=== PATIENT | female | born 1940 | race American Indian/Alaskan Native ===

== ENCOUNTER 2017-08-18 08:15 | Emergency (ER) | payer MEDICARE ==
[2017-08-18 08:34] VITALS: BP 107/61
[2017-08-18] MEDS: TORADOL IM ONE (09:26)
[2017-08-18] MEDS: NORCO 7.5/325 PO ONE (09:26)
--- NOTE | 2017-08-18 09:32 | Emergency Department Report ---
ED Back Pain/Injury HPI - General Chief Complaint: Back Pain/Injury Stated Complaint: BACK PAIN Time Seen by Provider: 08/18/17 08:51 Source: patient, family Limitations: Physical Limitation - History of Present Illness Initial Comments: This is a 76-year-old female nontoxic, well nourished in appearance, no acute signs of distress presents to the ED with c/o of left-sided lower back pain that radiates to his left lower extremity 1 week. Patient denies any trauma to the region. Patient stated pain has gradually increased. Patient describe pain as aching with level of 8 out of 10. Patient denies any numbness, tingling , fever, chills, nausea, vomiting, headache or stiff neck. Patient denies any abdominal pain. Patient denies any urinary symptoms. Patient denies any bladder or bowel instability, chest pain, shortness of breath, fever, chills, nausea, vomiting, headache, stiff neck, or any neurological symptoms. Patient states allergies to naproxen and tramadol but states she is okay taking Motrin and Aleve [id number]. Patient states past medical history includes arthritis, hypertension, gout, cholecystectomy. Patient denies any kidney failure or damage. MD Complaint: back pain -: week(s) (1) Similar Symptoms Previously: Yes Place: home Radiation: left leg Severity: mild Severity scale (0 -10): 8 Quality: aching Consistency: constant Improves With: immobilization Worsens With: movement, supine, sitting upright Associated Symptoms: denies: confusion, weakness, chest pain, numbness, difficulty walking, cough, difficulty urinating, diaphoresis, incontinence, fever/chills, constipation, headaches, abdominal pain, loss of appetite, malaise , nausea/vomiting, rash, seizure, shortness of breath, syncope - Related Data Home Medications Medication Instructions Recorded Confirmed Last Taken Atenolol/Chlorthalidone 50 mg PO DAILY 02/03/17 02/03/17 Unknown Hydralazine HCl 50 mg PO DAILY 02/03/17 02/03/17 Unknown Omeprazole 40 mg PO DAILY 02/03/17 02/03/17 Unknown Tylenol Arthritis 325 mg PO Q6H 02/03/17 02/03/17 Unknown Previous Rx's Medication Instructions Recorded Last Taken Type Colchicine 0.6 mg PO DAILY #60 capsule 02/05/17 Unknown Rx Pantoprazole [Protonix TAB] 40 mg PO DAILY #30 tablet 02/05/17 Unknown Rx HYDROcodone/ACETAMINOPHEN [[place] 1 each PO Q6H PRN #12 tablet 08/18/17 Unknown Rx 5-325 Tablet] Allergies Allergy/AdvReac Type Severity Reaction Status Date / Time naproxen AdvReac Dizziness Verified 02/03/17 12:46 tramadol AdvReac Unknown Unverified 04/03/15 14:02 ED Review of Systems ROS: Stated complaint: BACK PAIN Other details as noted in HPI Constitutional: denies: chills, fever Eyes: denies: eye pain, eye discharge, vision change ENT: denies: ear pain, throat pain Respiratory: denies: cough, shortness of breath, wheezing Cardiovascular: denies: chest pain, palpitations Endocrine: no symptoms reported Gastrointestinal: denies: abdominal pain, nausea, diarrhea Genitourinary: denies: urgency, dysuria, discharge Musculoskeletal: back pain. 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 Leg swelling - Surgical History Past Surgical History?: Yes Hx Cholecystectomy: Yes Additional Surgical History: hysterectomy - Social History Smoking Status: Former Smoker Substance Use Type: Alcohol, Prescribed - Medications Home Medications: Home Medications Medication Instructions Recorded Confirmed Last Taken Type Atenolol/Chlorthalidone 50 mg PO DAILY 02/03/17 02/03/17 Unknown History Hydralazine HCl 50 mg PO DAILY 02/03/17 02/03/17 Unknown History Omeprazole 40 mg PO DAILY 02/03/17 02/03/17 Unknown History Tylenol Arthritis 325 mg PO Q6H 02/03/17 02/03/17 Unknown History Colchicine 0.6 mg PO DAILY #60 capsule 02/05/17 Unknown Rx Pantoprazole [Protonix TAB] 40 mg PO DAILY #30 tablet 02/05/17 Unknown Rx HYDROcodone/ACETAMINOPHEN [[place] 1 each PO Q6H PRN #12 tablet 08/18/17 Unknown Rx 5-325 Tablet] ED Physical Exam - General Limitations: Physical Limitation General appearance: alert, in no apparent distress - Head Head exam: Present: atraumatic, normocephalic - Eye Eye exam: Present: normal appearance Pupils: Present: normal accommodation - ENT ENT exam: Present: normal exam, mucous membranes moist - Neck Neck exam: Present: normal inspection, full ROM. Absent: tenderness, meningismus, lymphadenopathy, thyromegaly - Respiratory Respiratory exam: Present: normal lung sounds bilaterally. Absent: respiratory distress, wheezes, rales, rhonchi, stridor, chest wall tenderness, accessory muscle use, decreased breath sounds, prolonged expiratory - Cardiovascular Cardiovascular Exam: Present: regular rate, normal rhythm, normal heart sounds. Absent: bradycardia, tachycardia, irregular rhythm, systolic murmur, diastolic murmur, rubs, gallop - GI/Abdominal GI/Abdominal exam: Present: soft, normal bowel sounds. Absent: distended, tenderness, guarding, rebound, rigid, diminished bowel sounds - Rectal Rectal exam: Present: deferred - Extremities Exam Extremities exam: Present: normal inspection, full ROM, normal capillary refill - Back Exam Back exam: Present: normal inspection, full ROM, paraspinal tenderness (lumbar region). Absent: tenderness, CVA tenderness (R), CVA tenderness (L), muscle spasm, vertebral tenderness, rash noted - Expanded Back Exam Expanded Back exam: Absent: saddle anesthesia Back exam: Negative Straight Leg Raising: Left, Right - Neurological Exam Neurological exam: Present: alert, oriented X3, normal gait - Psychiatric Psychiatric exam: Present: normal affect, normal mood - Skin Skin exam: Present: warm, dry, intact, normal color. Absent: rash ED Course Vital Signs 08/18/17 08:29 Temperature 98.3 F Pulse Rate 89 Respiratory 18 Rate Blood Pressure 107/61 O2 Sat by Pulse 95 Oximetry - Reevaluation(s) Reevaluation #1: 08/18/17 09:35 Patient is speaking in full sentences with no signs of distress noted. - Consultations Consultation #1: 08/18/17 09:35 Patient has been consulted with Dr. Stevens about patient history, physical exam, and agrees to ED plan of care. ED Medical Decision Making - Lab Data Result diagrams: 08/18/17 09:25 08/18/17 09:25 - EKG Data When compared to previous EKG there are: no significant change Interpretation: no acute changes, normal EKG, other (normal sinus rhythm with no ST abnormalities. Signed by Dr. Stevens.) - Medical Decision Making this is a 76-year-old female that presents with degenerative lumbar disc disease. Patient is stable and was examined by me. CT of abdomen/pelvis and lumbar spine obtained and dictated by the radiologist. Labs within normal limits. EKG normal sinus rhythm. Patient is notified of the CT results with no questionable patient. Patient did receive Toradol 30 mg IM and Ultram which symptoms are improving and subsided. There is no signs or symptoms of cauda equina syndrome. Dr. Stevens has been consulted and agrees with the discharge plan of care as well as follow-up. Patient is discharged with some [place] and was instructed not to operate any machinery while taking Ultram due to drowsiness. Patient is daughter is currently at the bedside as the patient home after discharge. Patient was instructed to refer to Follow-up with a primary care doctor in 3-5 days or if symptoms worsen and continue return to emergency room as soon as possible. At time of discharge, the patient does not seem toxic or ill in appearance. No acute signs of distress noted. Patient agrees to discharge treatment plan of care. No further questions noted by the patient. Critical care attestation.: If time is entered above; I have spent that time in minutes in the direct care of this critically ill patient, excluding procedure time. ED Disposition Clinical Impression: Lumbar degenerative disc disease Disposition: DC-01 TO HOME OR SELFCARE Is pt being admited?: No Does the pt Need Aspirin: No Condition: Stable Instructions: Degenerative Disc Disease (ED) Additional Instructions: Do not operate after discharge and when you are taken [place] due to drowsiness Follow-up with your primary care doctor in 3-5 days or if symptoms worsen such as bladder or bowel stability, chest pain, short of breath, numbness or tingling sensation in extremities, headache, dizziness, visual changes, nausea vomiting, or abdominal pain, return back to emergency room as was possible. Prescriptions: HYDROcodone/ACETAMINOPHEN [[place] 5-325 Tablet] 1 each PO Q6H PRN #12 tablet PRN Reason: Pain Referrals: PRIMARY CARE, [Primary Care Provider] - 3-5 Days MAC BARRERA MD [Staff Physician] - 3-5 Days [facility] [Outside] - 3-5 Days [facility] [Outside] - 3-5 Days
[2017-08-18 10:03] LABS: INR 1.01 (0.87-1.13)
[2017-08-18 10:04] LABS: Partial Thromboplastin Time 29.1 Sec. (24.2-36.6)
[2017-08-18 10:24] LABS: Hematocrit 46.2 % (30.3-42.9); Hemoglobin 14.8 gm/dl (10.1-14.3); Mean Corpuscular HGB Conc 32 % (30-34); Mean Corpuscular Hemoglobin 28 pg (28-32); Mean Corpuscular Volume 88 fl (79-97); Platelet Count 222 K/mm3 (140-440); Red Blood Count 5.26 M/mm3 (3.65-5.03); Red Cell Distribution Width 14.7 % (13.2-15.2)
--- NOTE | 2017-08-18 10:36 | Cat Scan Report ---
CT ABDOMEN AND PELVIS WITHOUT CONTRAST INDICATION: Back pain. COMPARISON: None similar. FINDINGS: Noncontrast abdomen and pelvis CT performed. LUNG BASES: Left hemidiaphragm minimally elevated. Nonspecific distal esophageal wall prominence/thickening, not excluded for gastroesophageal reflux and/or hiatal hernia, amongst others. ABDOMEN: Please note that sensitivity to detect small visceral lesions is limited due to the absence of intravenous or oral contrast. Cholecystectomy clips. Diffuse fatty hepatic infiltration. Right hepatic lobe 17.1 cm in midclavicular length. Otherwise grossly unremarkable unenhanced liver, spleen, pancreas, adrenals, nonaneurysmal abdominal aorta with few atherosclerotic calcifications, IVC and left kidney. Right kidney not visualized in its usual anatomic location. Nonopacified GI tract evaluation limited, though grossly nonobstructive. A small non-strangulated segment of small bowel though herniates through an approximately 1.2 cm defect at or just below the umbilicus, axial image 103, series 2. Mild descending colon diverticulosis. No ascites or definite size significant adenopathy. PELVIS: Right kidney noted slightly paramidline in the right hemipelvis without hydronephrosis or radiopaque calculi. Uterus surgically absent with few pelvic phleboliths. Grossly unremarkable non-opacified urinary bladder and the rectosigmoid. No free fluid or significant adenopathy. Moderate multilevel spinal degenerative changes as spurring, mid to lower lumbar facet arthropathy, lower lumbar moderate to severe disc narrowing as also approximately 4 mm anterolisthesis of L4 on L5. Mild bilateral SI joint degenerative changes as well. CONCLUSION: Various incidental findings on this limited, unenhanced exam, as a small nonobstructive small bowel segment herniating into an umbilical hernia, distal esophageal prominence, fatty liver, cholecystectomy, pelvic right kidney, hysterectomy and multilevel spinal degenerative changes, amongst others, as detailed above. Thank you for the opportunity to participate in this patient's care.
[2017-08-18 11:03] LABS: Albumin 3.2 g/dL (3.9-5); Bilirubin,Direct 0.2 mg/dL (0-0.2)
--- NOTE | 2017-08-18 11:54 | Cat Scan Report ---
CT LUMBAR SPINE WITHOUT CONTRAST INDICATION: Back pain. COMPARISON: Accompanying abdomen and pelvis CT. FINDINGS: Noncontrast axial, sagittal and coronal CT reconstructions through the lumbar spine suggest demineralized bones with multilevel moderate degenerative changes as lower thoracic osteophytes and L2-L3 through L4-L5 bilateral facet arthropathy. Slight 2 mm anterolisthesis of L3 over L4 and L4 over L5. Moderate L4-L5 and L5-S1 disc narrowing may also be present. No large disc bulge grossly suspected. Normal paraspinal soft tissues. Clear imaged lung bases. Possible hiatal hernia and/or gastroesophageal reflux. Small nonspecific 5 mm gastric calcification. Partially imaged pelvic right kidney, axial image 117. CONCLUSION: No acute lumbar spine CT abnormality with multilevel spinal degenerative changes and various other findings, as above. Thank you for the opportunity to participate in this patient's care.
[2017-08-18 12:26] LABS: Bilirubin,Urine NEG (Negative); Blood,Urine NEG (Negative); Color,Urine Yellow (Yellow); Mucus,Urine FEW /HPF; Protein,Urine <15 mg/dL mg/dL (Negative)
== END 2017-08-18 12:44 | disposition home or self-care (01) ==
LOC: ED 08:15
DX: M51.36 Other intervertebral disc degeneration, lumbar region (principal); I10 Essential (primary) hypertension; M19.90 Unspecified osteoarthritis, unspecified site; N28.89 Other specified disorders of kidney and ureter; Z90.49 Acquired absence of other specified parts of digestive tract; Z90.710 Acquired absence of both cervix and uterus; Z87.891 Personal history of nicotine dependence; Z88.6 Allergy status to analgesic agent
CPT/HCPCS: 36415; 72131; 74176; 80048; 80074; 81001; 85025; 85610; 85730; 93005; 93010; 96372; 99284; J1885

== ENCOUNTER 2018-07-06 14:28 | Inpatient (IN) | payer MEDICARE ==
--- NOTE | 2018-07-06 14:40 | Emergency Department Report ---
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 Leg swelling - Surgical History Hx Cholecystectomy: Yes Additional Surgical History: hysterectomy - Social History Smoking Status: Never Smoker - Medications Home Medications: Home Medications Medication Instructions Recorded Confirmed Last Taken Type Atenolol/Chlorthalidone 50 mg PO DAILY 02/03/17 02/03/17 Unknown History Hydralazine HCl 50 mg PO DAILY 02/03/17 02/03/17 Unknown History Omeprazole 40 mg PO DAILY 02/03/17 02/03/17 Unknown History Tylenol Arthritis 325 mg PO Q6H 02/03/17 02/03/17 Unknown History Colchicine 0.6 mg PO DAILY #60 capsule 02/05/17 Unknown Rx Pantoprazole [Protonix TAB] 40 mg PO DAILY #30 tablet 02/05/17 Unknown Rx HYDROcodone/ACETAMINOPHEN [[place] 1 each PO Q6H PRN #12 tablet 08/18/17 Unknown Rx 5-325 Tablet] Upper Extremity Exam - Exam General: Vital signs noted. No distress. Alert and acting appropriately. ED Course Vital Signs 07/06/18 14:39 Respiratory 18 Rate O2 Sat by Pulse 98 Oximetry ED Medical Decision Making - Lab Data Result diagrams: 07/06/18 14:55 07/06/18 14:55 Critical care attestation.: If time is entered above; I have spent that time in minutes in the direct care of this critically ill patient, excluding procedure time. ED Disposition Condition: Stable
[2018-07-06 15:10] LABS: Hematocrit 41.9 % (30.3-42.9); Hemoglobin 13.9 gm/dl (10.1-14.3); Mean Corpuscular HGB Conc 33 % (30-34); Mean Corpuscular Volume 87 fl (79-97); Platelet Count 276 K/mm3 (140-440); Red Blood Count 4.84 M/mm3 (3.65-5.03); Red Cell Distribution Width 14.1 % (13.2-15.2)
[2018-07-06 15:24] LABS: Albumin 2.8 g/dL (3.9-5); Calcium 9.9 mg/dL (8.4-10.2)
--- NOTE | 2018-07-06 15:46 | Emergency Department Report ---
<MADISON KWAN - Last Filed: 07/07/18 01:38> - General Chief complaint: Weakness Stated complaint: WEAKNESS X3DAYS Time Seen by Provider: 07/06/18 14:28 - Related Data Home Medications Medication Instructions Recorded Confirmed Last Taken RX: Atenolol/Chlorthalidone 1 tab PO QDAY 07/06/18 07/06/18 Unknown [Tenoretic 50-25] RX: Famotidine [Pepcid] 40 mg PO QHS 07/06/18 07/06/18 Unknown RX: Febuxostat [Uloric] 40 mg PO DAILY 07/06/18 07/06/18 Unknown RX: Hydralazine HCl 50 mg PO BID 07/06/18 07/06/18 Unknown Previous Rx's Medication Instructions Recorded Last Taken Type RX: Colchicine 0.6 mg PO DAILY #60 capsule 02/05/17 Unknown Rx RX: Docusate Sodium [Colace CAP] 100 mg PO BID PRN #30 capsule 07/10/18 Unknown Rx RX: predniSONE [Deltasone] 10 mg PO DAILY #5 tablet 07/10/18 Unknown Rx Allergies Allergy/AdvReac Type Severity Reaction Status Date / Time turkey Allergy Intermediate Hives Verified 07/07/18 19:18 tramadol AdvReac Intermediate Dizziness Verified 07/10/18 03:08 naproxen AdvReac Mild Dizziness Verified 07/07/18 19:19 ED Past Medical Hx - Medications Home Medications: Home Medications Medication Instructions Recorded Confirmed Last Taken Type RX: Colchicine 0.6 mg PO DAILY #60 capsule 02/05/17 07/06/18 Unknown Rx RX: Atenolol/Chlorthalidone 1 tab PO QDAY 07/06/18 07/06/18 Unknown History [Tenoretic 50-25] RX: Famotidine [Pepcid] 40 mg PO QHS 07/06/18 07/06/18 Unknown History RX: Febuxostat [Uloric] 40 mg PO DAILY 07/06/18 07/06/18 Unknown History RX: Hydralazine HCl 50 mg PO BID 07/06/18 07/06/18 Unknown History RX: Docusate Sodium [Colace CAP] 100 mg PO BID PRN #30 capsule 07/10/18 Unknown Rx RX: predniSONE [Deltasone] 10 mg PO DAILY #5 tablet 07/10/18 Unknown Rx ED Medical Decision Making - Lab Data Result diagrams: 07/06/18 14:55 07/06/18 14:55 - Radiology Data Referring Physician: MELANIE QUARLES III Patient Name: MARIA TERESA IRWIN Date of : 1940 Sex: Female Report Date: 2018-07-06 Report Status: Finalized Findings [facility] [address] [place] [address] Cat Scan Report Signed Patient: MARIA TERESA IRWIN MR#: [id number] : 1940 Acct:[id number] Age/Sex: 77 / F ADM Date: 07/06/18 Loc: ED Attending Dr: Ordering Physician: MELANIE QUARLES III, MD Date of Service: 07/06/18 Procedure(s): CT head/brain wo con Accession Number(s): [id number] cc: MELANIE QUARLES III, MD FINAL REPORT EXAM: CT HEAD/BRAIN WO CON HISTORY: Weakness TECHNIQUE: 2.5 millimeter axial images from the skullbase to the vertex. Comparison: None FINDINGS: There is no evidence of an acute intracranial process, intracranial hemorrhage or mass effect. Ventricular size is concordant with the degree of atrophy. There is atherosclerotic vascular calcification of the internal carotid arteries and left vertebral artery at the skullbase. The visualized portions of the orbits, paranasal and mastoid sinuses are notable for a large polyp or retention cyst in the right maxillary sinus. The bony structures are unremarkable. IMPRESSION: 1. No evidence of an acute intracranial process, intracranial hemorrhage or mass effect. If there is a clinical suspicion of an acute intracranial process, MRI brain may be helpful. Transcribed By: ED Dictated By: BLUE ROMAN MD Electronically Authenticated By: BLUE ROMAN MD Signed Date/Time: 07/06/18 163 DD/ 163 TD/TT: 07/06/18 163 - Medical Decision Making Initial set of cardiac enzymes are negative. ED Disposition Clinical Impression: Dizziness, Weakness, Renal insufficiency, Acute gouty arthritis, Right arm pain, Hypokalemia ARF (acute renal failure) Qualifiers: Acute renal failure type: unspecified Qualified Code(s): N17.9 - Acute kidney failure, unspecified Nausea & vomiting Qualifiers: Vomiting type: unspecified Vomiting Intractability: non-intractable Qualified Code(s): R11.2 - Nausea with vomiting, unspecified Diarrhea Qualifiers: Diarrhea type: unspecified type Qualified Code(s): R19.7 - Diarrhea, unspecified Disposition: DC-09 OP ADMIT IP TO THIS HOSP Is pt being admited?: Yes Condition: Fair <MELANIE QUARLES III - Last Filed: 07/20/18 06:27> - General Source: patient, EMS Mode of arrival: Stretcher Limitations: No Limitations, Other - History of Present Illness Initial comments: Patient is a 77-year-old female that presents emergent what generalized weakness 3 days. Patient also complaining of dizziness and difficulty walking. Patient states she is having right arm weakness due to pain. Patient states she is having a gout flareup in her right arm. Patient states the pain in her right arm as a 8 out of 10 and is worse with movement and palpation and better with rest. Patient states that her symptoms are worsening. Patient also complaining of nausea vomiting and diarrhea. Patient states she is having difficulty swallowing anything down due to the symptoms. Patient is states she is having dry mouth as well MD Complaint: generalized weakness -: Sudden Location: generalized Severity: severe Severity scale (0 -10): 8 Consistency: constant Improves with: rest Worsens with: movement, exertion Context: new medication, recent illness Associated Symptoms: nausea/vomiting. denies: chest pain, confusion, dark stools, diaphoresis, dysuria, easy bruising, fever/chills, headaches, loss of appetite, myalgias, rash, shortness of breath, syncope ED Review of Systems ROS: Stated complaint: WEAKNESS X3DAYS Other details as noted in HPI Constitutional: malaise, weakness. denies: chills, fever Eyes: denies: eye pain, eye discharge, vision change ENT: denies: ear pain, throat pain Respiratory: denies: cough, shortness of breath, wheezing Cardiovascular: denies: chest pain, palpitations Endocrine: no symptoms reported Gastrointestinal: nausea, vomiting, diarrhea. denies: abdominal pain Genitourinary: denies: urgency, dysuria, discharge Musculoskeletal: denies: back pain, joint swelling, arthralgia Skin: denies: rash, lesions Neurological: weakness, vertigo. 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 Leg swelling - Surgical History Past Surgical History?: Yes Hx Cholecystectomy: Yes Additional Surgical History: hysterectomy - Family History Family history: no significant - Social History Smoking Status: Never Smoker Substance Use Type: None ED Physical Exam - General Limitations: No Limitations, Other General appearance: alert, in no apparent distress - Head Head exam: Present: atraumatic, normocephalic - Eye Eye exam: Present: normal appearance - ENT ENT exam: Present: mucous membranes dry - Neck Neck exam: Present: normal inspection - Respiratory Respiratory exam: Present: normal lung sounds bilaterally. Absent: respiratory distress - Cardiovascular Cardiovascular Exam: Present: regular rate, normal rhythm. Absent: systolic murmur, diastolic murmur, rubs, gallop - GI/Abdominal GI/Abdominal exam: Present: soft, normal bowel sounds. Absent: distended, ten derness, guarding, rebound - Extremities Exam Extremities exam: Present: normal inspection - Back Exam Back exam: Present: normal inspection - Neurological Exam Neurological exam: Present: alert, oriented X3 - Psychiatric Psychiatric exam: Present: normal affect, normal mood - Skin Skin exam: Present: warm, dry, intact, normal color. Absent: rash - Assessment Assessment Interval: Baseline - Level of Consciousness 1a. Level of Consciousness: alert/keenly responsive - LOC Questions 1b. LOC Questions: answers both correctly - LOC Command 1c. LOC Commands: performs tasks correctly - Best Gaze 2. Best Gaze: normal - Visual 3. Visual: no visual loss - Facial Palsy 4. Facial Palsy: normal symmetrical movement - Motor Arm 5b. Motor Arm Right: no drift 5a. Motor Arm Left: no drift - Motor Leg 6b. Motor Leg Right: no drift 6a. Motor Leg Left: no drift - Limb Ataxia 7. Limb Ataxia: absent - Sensory 8. Sensory: normal - Best Language 9. Best Language: no aphasia - Dysarthria 10. Dysarthria: normal - Extinction and Inattention 11. Extinction/Inattention: no abnormality - Scoring Total Score: 0 Stroke Severity: No Stroke Symptoms ED Course Vital Signs 07/06/18 07/06/18 07/06/18 14:39 14:40 14:44 Temperature 98.6 F Pulse Rate 77 69 Respiratory 18 18 Rate Blood Pressure Blood Pressure 111/57 [Left] O2 Sat by Pulse 98 99 97 Oximetry 07/06/18 07/06/18 07/06/18 14:50 15:00 15:10 Temperature Pulse Rate 68 61 72 Respiratory 11 L 16 17 Rate Blood Pressure 111/57 120/59 120/59 Blood Pressure [Left] O2 Sat by Pulse 96 97 96 Oximetry 07/06/18 07/06/18 07/06/18 15:20 15:30 15:40 Temperature Pulse Rate 69 69 75 Respiratory 16 20 17 Rate Blood Pressure 120/59 120/59 116/68 Blood Pressure [Left] O2 Sat by Pulse 98 99 99 Oximetry 07/06/18 07/06/18 07/06/18 15:50 16:18 16:20 Temperature Pulse Rate 70 71 72 Respiratory 17 14 22 Rate Blood Pressure 116/68 127/67 Blood Pressure [Left] O2 Sat by Pulse 99 92 97 Oximetry 07/06/18 07/06/18 07/06/18 16:30 16:40 16:50 Temperature Pulse Rate 73 70 70 Respiratory 21 18 21 Rate Blood Pressure 127/67 127/67 127/67 Blood Pressure [Left] O2 Sat by Pulse 100 100 99 Oximetry 07/06/18 17:00 Temperature Pulse Rate 70 Respiratory 16 Rate Blood Pressure 127/67 Blood Pressure [Left] O2 Sat by Pulse 100 Oximetry - Reevaluation(s) Reevaluation #1: Discussed all results with patient. Patient will be admitted to the hospitalist service. Patient agrees with plan of care and admission. 07/06/18 16:19 - Consultations Consultation #1: Hospitalist consulted for admission. Hospitalist to admit patient and assume care of patient. Bridge orders placed for admission 07/06/18 16:20 ED Medical Decision Making - Lab Data Result diagrams: 07/09/18 05:41 07/10/18 04:08 - EKG Data -: EKG Interpreted by Me EKG shows normal: sinus rhythm, axis, intervals, QRS complexes, ST-T waves Rate: normal - Radiology Data Radiology results: report reviewed, image reviewed interpreted by me: Head CT negative. - Medical Decision Making Patient is a 77-year-old female that came in for multiple complaints. Patient's complaints include dizziness, weakness, right arm pain, gout flareup, diarrhea, nausea and vomiting. Patient was admitted to the hospitalist service for further evaluation treatment. Patient's creatinine has increased from 1.2-1.9. Patient's other labs are unremarkable. - Differential Diagnosis weakness. Right arm pain. n/v/d, renal insufficiency. Dizziness Critical care attestation.: If time is entered above; I have spent that time in minutes in the direct care of this critically ill patient, excluding procedure time. ED Disposition Is pt being admited?: Yes Does the pt Need Aspirin: No Time of Disposition: 16:21
[2018-07-06] MEDS ORDERED: SOLU-Medrol IV ONE (16:21)
[2018-07-06] MEDS ORDERED: NACL 0.9% 1000 ML 1,000 ML IV ONE (16:24)
--- NOTE | 2018-07-06 16:32 | Cat Scan Report ---
FINAL REPORT EXAM: CT HEAD/BRAIN WO CON HISTORY: Weakness TECHNIQUE: 2.5 millimeter axial images from the skullbase to the vertex. Comparison: None FINDINGS: There is no evidence of an acute intracranial process, intracranial hemorrhage or mass effect. Ventricular size is concordant with the degree of atrophy. There is atherosclerotic vascular calcification of the internal carotid arteries and left vertebral a rtery at the skullbase. The visualized portions of the orbits, paranasal and mastoid sinuses are notable for a large polyp or retention cyst in the right maxillary sinus. The bony structures are unremarkable. IMPRESSION: 1. No evidence of an acute intracranial process, intracranial hemorrhage or mass effect. If there is a clinical suspicion of an acute intracranial process, MRI brain may be helpful.
[2018-07-06 16:40] LABS: Creatine Kinase MB < 1.0 ng/mL (0.0-4.0)
--- NOTE | 2018-07-06 16:56 | History and Physical Report ---
History of Present Illness Date of examination: 07/06/18 Date of admission: 07/06/2018 Chief complaint: Nausea vomiting diarrhea for 2 days Generalized weakness and increasing debility for 1 month History of present illness: 77-year-old -[place] female with history of hypertension and gastroesophageal reflux disease and gout comes in for nausea vomiting and diarrhea for 2 days. Patient has generalized weakness for 2 days. Even prior to that patient has been having decreased ability to move around and becoming dependent for ADLs like taking shower and eating on her daughter. Daughter says that she is not able to take care of her mom because of increased dependence and inability to move around the house. Patient is otherwise alert and oriented. Feels severely debilitated. Patient also has right shoulder pain and the patient feels that it is acute gout. No fever or chills. No shortness of breath. Vomiting about 3-4 times a day. Loose watery stools about 3-4 times a day. 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 Leg swelling Surgical History Past Surgical History?: Yes Hx Cholecystectomy: Yes Additional Surgical History: hysterectomy Family History Family history: no significant Social History Smoking Status: Never Smoker Substance Use Type: None Medications Home Medications: Home Medications Medication Instructions Recorded Confirmed Last Taken Type Atenolol/Chlorthalidone 50 mg PO DAILY 02/03/17 02/03/17 Unknown History Hydralazine HCl 50 mg PO DAILY 02/03/17 02/03/17 Unknown History Omeprazole 40 mg PO DAILY 02/03/17 02/03/17 Unknown History Tylenol Arthritis 325 mg PO Q6H 02/03/17 02/03/17 Unknown History Colchicine 0.6 mg PO DAILY #60 capsule 02/05/17 Unknown Rx Pantoprazole [Protonix TAB] 40 mg PO DAILY #30 tablet 02/05/17 Unknown Rx HYDROcodone/ACETAMINOPHEN [Devol 1 each PO Q6H PRN #12 tablet 08/18/17 Unknown Rx 5-325 Tablet] Review of systems Stated complaint: WEAKNESS X3DAYS Other details as noted in HPI Constitutional: malaise, weakness. denies: chills, fever Eyes: denies: eye pain, eye discharge, vision change ENT: denies: ear pain, throat pain Respiratory: denies: cough, shortness of breath, wheezing Cardiovascular: denies: chest pain, palpitations Endocrine: no symptoms reported Gastro nausea vomiting and diarrhea for 3 days Genitourinary: denies: urgency, dysuria, discharge Musculoskeletal: denies: back pain, joint swelling, arthralgia Skin: denies: rash, lesions Neurological: weakness, vertigo. denies: headache, paresthesias Psychiatric: denies: anxiety, depression Hematological/Lymphatic: denies: easy bleeding, easy bruising Medications and Allergies Allergies Allergy/AdvReac Type Severity Reaction Status Date / Time naproxen AdvReac Dizziness Verified 02/03/17 12:46 tramadol AdvReac Unknown Unverified 04/03/15 14:02 Home Medications Medication Instructions Recorded Confirmed Last Taken Type Colchicine 0.6 mg PO DAILY #60 capsule 02/05/17 07/06/18 Unknown Rx Atenolol/Chlorthalidone [Tenoretic 1 tab PO QDAY 07/06/18 07/06/18 Unknown History 50-25] Famotidine [Pepcid] 40 mg PO QHS 07/06/18 07/06/18 Unknown History Febuxostat [Uloric] 40 mg PO DAILY 07/06/18 07/06/18 Unknown History Hydralazine HCl 50 mg PO BID 07/06/18 07/06/18 Unknown History Active Meds: Active Medications Sodium Chloride (Nacl 0.9% 1000 Ml) 1,000 mls @ 999 mls/hr IV BOLUS ONE Stop: 07/06/18 17:24 Last Admin: 07/06/18 16:49 Dose: 999 mls/hr Documented by: Exam - Physical Exam Narrative exam: Lying in bed comfortably - Constitutional Vitals: Temp Pulse Resp BP Pulse Ox 98.6 F 69 18 111/57 97 07/06/18 14:44 07/06/18 14:44 07/06/18 14:44 07/06/18 14:44 07/06/18 14:44 General appearance: Present: no acute distress, well-nourished - EENT Eyes: Present: PERRL ENT: hearing intact, clear oral mucosa - Neck Neck: Present: supple, normal ROM - Respiratory Respiratory effort: normal Respiratory: bilateral: CTA - Cardiovascular Heart rate: 88 Rhythm: regular Heart Sounds: Present: S1 & S2. Absent: rub, click - Extremities Extremities: no ischemia, pulses intact, pulses symmetrical, No edema Peripheral Pulses: within normal limits - Abdominal General gastrointestinal: Present: soft, non-tender, non-distended, normal bowel sounds Female genitourinary: Present: normal - Rectal Rectal Exam: deferred - Integumentary Integumentary: Present: clear, warm, dry - Musculoskeletal Musculoskeletal: gait normal, strength equal bilaterally - Psychiatric Psychiatric: appropriate mood/affect, intact judgment & insight - Neurologic Neurologic: CNII-XII intact, moves all extremities - Allied Health Allied health notes reviewed: nursing, case management Results - Labs CBC & Chem 7: 07/06/18 14:55 07/06/18 14:55 Labs: Laboratory Last Values WBC 9.5 K/mm3 (4.5-11.0) 07/06/18 14:55 RBC 4.84 M/mm3 (3.65-5.03) 07/06/18 14:55 Hgb 13.9 gm/dl (10.1-14.3) 07/06/18 14:55 Hct 41.9 % (30.3-42.9) 07/06/18 14:55 MCV 87 fl (79-97) 07/06/18 14:55 MCH 29 pg (28-32) 07/06/18 14:55 MCHC 33 % (30-34) 07/06/18 14:55 RDW 14.1 % (13.2-15.2) 07/06/18 14:55 Plt Count 276 K/mm3 (140-440) 07/06/18 14:55 Sodium 137 mmol/L (137-145) 07/06/18 14:55 Potassium 3.5 mmol/L (3.6-5.0) L 07/06/18 14:55 Chloride 98.9 mmol/L (98-107) 07/06/18 14:55 Carbon Dioxide 23 mmol/L (22-30) 07/06/18 14:55 Anion Gap 19 mmol/L 07/06/18 14:55 BUN 45 mg/dL (7-17) H 07/06/18 14:55 Creatinine 1.9 mg/dL (0.7-1.2) H 07/06/18 14:55 Estimated GFR 31 ml/min 07/06/18 14:55 BUN/Creatinine Ratio 24 % 07/06/18 14:55 Glucose 114 mg/dL (65-100) H 07/06/18 14:55 Calcium 9.9 mg/dL (8.4-10.2) 07/06/18 14:55 Total Bilirubin 0.90 mg/dL (0.1-1.2) 07/06/18 14:55 AST 31 units/L (5-40) 07/06/18 14:55 ALT 32 units/L (7-56) 07/06/18 14:55 Alkaline Phosphatase 64 units/L (35-129) 07/06/18 14:55 Total Creatine Kinase 102 units/L (30-135) 07/06/18 16:09 CK-MB (CK-2) < 1.0 ng/mL (0.0-4.0) 07/06/18 16:09 CK-MB (CK-2) Rel Index 0.9 (0-4) 07/06/18 16:09 Troponin T < 0.010 ng/mL (0.00-0.029) 07/06/18 16:09 Total Protein 7.3 g/dL (6.3-8.2) 07/06/18 14:55 Albumin 2.8 g/dL (3.9-5) L 07/06/18 14:55 Albumin/Globulin Ratio 0.6 % 07/06/18 14:55 Short CBC 07/06/18 Range/Units 14:55 WBC 9.5 (4.5-11.0) K/mm3 Hgb 13.9 (10.1-14.3) gm/dl Hct 41.9 (30.3-42.9) % Plt Count 276 (140-440) K/mm3 BMP 07/06/18 14:55 Sodium 137 Potassium 3.5 L Chloride 98.9 Carbon Dioxide 23 BUN 45 H Creatinine 1.9 H Glucose 114 H Calcium 9.9 Cardiac Enzymes 07/06/18 07/06/18 Range/Units 15:52 16:09 Total Creatine Kinase 102 (30-135) units/L CK-MB (CK-2) < 1.0 (0.0-4.0) ng/mL Troponin T < 0.010 < 0.010 (0.00-0.029) ng/mL Liver Function 07/06/18 Range/Units 14:55 Total Bilirubin 0.90 (0.1-1.2) mg/dL AST 31 (5-40) units/L ALT 32 (7-56) units/L Alkaline Phosphatase 64 (35-129) units/L Albumin 2.8 L (3.9-5) g/dL - Imaging and Cardiology EKG: report reviewed Imaging and Cardiology: EKG Data -: EKG Interpreted by Me EKG shows normal: sinus rhythm, axis, intervals, QRS complexes, ST-T waves Rate: normal - Radiology Data Radiology results: report reviewed, image reviewed interpreted by me: Head CT negative. Assessment and Plan Advance Directives: Yes (full code) VTE prophylaxis?: Chemical Plan of care discussed with patient/family: Yes - Patient Problems (1) Acute kidney injury Current Visit: Yes Status: Acute Plan to address problem: IV fluids for now Mild ATN (2) Acute gastroenteritis Current Visit: Yes Status: Acute Plan to address problem: Symptomatic treatment with IV Zofran and IV Reglan when necessary and Kaopectate. IV fluids 100 mL an hour (3) Severe disability Current Visit: Yes Status: Acute Plan to address problem: Patient has generalized weakness in the last 1 month Patient unable to do her activities of daily living especially showering and eating and moving around Totally dependent on her daughter Daughter unable to take care of the patient (4) Hypokalemia Current Visit: Yes Status: Acute Plan to address problem: Supplemented (5) Hypertension Current Visit: Yes Status: Chronic Qualifiers: Hypertension type: essential hypertension Qualified Code(s): I10 - Essential (primary) hypertension Plan to address problem: Continue her antihypertensives Will discontinue hydrochlorothiazide (6) GERD (gastroesophageal reflux disease) Current Visit: Yes Status: Chronic Qualifiers: Esophagitis presence: without esophagitis Qualified Code(s): K21.9 - Gastro-esophageal reflux disease without esophagitis Plan to address problem: Continue PPIs (7) Acute gout Current Visit: Yes Status: Acute Qualifiers: Gout site: shoulder Laterality: right Plan to address problem: Colchicine and prednisone initiated (8) DVT prophylaxis Current Visit: Yes Status: Acute Plan to address problem: Patient on Lovenox and GI prophylaxis (9) Discharge planning issues Current Visit: Yes Status: Acute Plan to address problem: Patient needs rehabilitation and senior living facility Case management consult with Advanced care directives discussed
[2018-07-06] MEDS ORDERED: KETAMINE HCL IV ONE (16:57)
[2018-07-06] MEDS ORDERED: TYLENOL PO PRN ×2 (16:58→17:30)
[2018-07-06] MEDS ORDERED: SODIUM CHLORIDE FLUSH SYRINGE 10 ML IV PRN ×2 (16:58→17:30)
[2018-07-06] MEDS ORDERED: ZOFRAN IV PRN ×2 (16:58→17:30)
[2018-07-06] MEDS ORDERED: DILAUDID IV PRN (17:30)
[2018-07-06 17:56] LABS: Bacteria,Urine 1+ /HPF (Negative); Bilirubin,Urine NEG (Negative); Blood,Urine NEG (Negative); Color,Urine Amber (Yellow); Hyaline Casts,Urine 1 /LPF; Mucus,Urine FEW /HPF; Protein,Urine <15 mg/dL mg/dL (Negative)
[2018-07-06] MEDS ORDERED: KCL 10MEQ/100ML 10 MEQ/100 ML BAG IV ONE (18:11)
[2018-07-06] MEDS: KCL 10MEQ/100ML 10 MEQ/100 ML BAG IV SCH ×2 (18:20→21:29)
[2018-07-06] MEDS: PERCOCET 5/325 PO PRN (18:44)
[2018-07-06] MEDS: APRESOLINE PO SCH (21:25)
[2018-07-06] MEDS: COLCHICINE PO SCH (21:25)
[2018-07-06] MEDS: SODIUM CHLORIDE FLUSH SYRINGE 10 ML IV SCH (21:26)
[2018-07-06] MEDS ORDERED: PEPCID PO SCH (22:00)
[2018-07-06] MEDS ORDERED: NON-FORMULARY (Hydralazine Hcl [Hydralazine Hcl] 50 MG) PO SCH (22:00)
[2018-07-06] MEDS ORDERED: SODIUM CHLORIDE FLUSH SYRINGE 10 ML IV SCH (22:00)
[2018-07-07] MEDS: DELTASONE PO SCH ×2 (03:28→10:15)
[2018-07-07] MEDS: PERCOCET 5/325 PO PRN (03:30)
[2018-07-07 05:44] LABS: Basophils # (Auto) 0.1 K/mm3 (0.0-0.1); Basophils % (Auto) 0.8 % (0.0-1.8); Hematocrit 42.9 % (30.3-42.9); Hemoglobin 13.8 gm/dl (10.1-14.3); Lymphocytes % (Auto) 10.4 % (13.4-35.0); Mean Corpuscular HGB Conc 32 % (30-34); Mean Corpuscular Volume 88 fl (79-97); Monocytes # (Auto) 0.2 K/mm3 (0.0-0.8); Monocytes % (Auto) 2.1 % (0.0-7.3); Platelet Count 323 K/mm3 (140-440); Red Cell Distribution Width 14.1 % (13.2-15.2)
[2018-07-07 06:05] LABS: Albumin 3.4 g/dL (3.9-5); Calcium 9.7 mg/dL (8.4-10.2)
--- NOTE | 2018-07-07 10:01 | Progress Note ---
Assessment and Plan Assessment and plan: --Acute Gastroenteritis; probably viral Continue antidiarrheals antiemetics supportive care and IV fluids --Acute kidney injury; due to vasomotor nephropathy Worsening renal function, IV fluids avoid nephrotoxins Nephrology consultation[patient follows with --Mild Hypokalemia; present on admission, corrected; Monitor electrolytes --Hypertension; moderate control continue current antihypertensives and when necessary medications --History of gout; stable on colchicine and steroids --Gastroesophageal reflux disease; Protonix --DVT prophylaxis; Lovenox --General debility; physical therapy occupational therapy and supportive care Fall precautions --DC planning; possible placement SNF versus subacute --Full CODE STATUS Closely monitor the patient and adjust the management as needed History Interval history: Patient seen and examined medical records reviewed Patient was admitted with generalized weakness nausea vomiting acute renal f ailure Feels slightly better, sister reports that patient feels generally weak Unable to ambulate sometimes Denies chest pain or shortness of breath Alert awake oriented 3 Vital signs reviewed Hospitalist Physical - Constitutional Vitals: Temp Pulse Resp BP Pulse Ox 98.1 F 70 18 126/59 94 07/07/18 08:51 07/07/18 08:51 07/07/18 08:51 07/07/18 08:51 07/07/18 08:51 General appearance: Present: no acute distress, well-nourished, obese (morbidly obese) - EENT Eyes: Present: PERRL, EOM intact - Neck Neck: Present: supple, normal ROM - Respiratory Respiratory effort: normal Respiratory: bilateral: diminished, negative: rales, rhonchi, wheezing - Cardiovascular Rhythm: regular Heart Sounds: Present: S1 & S2 - Extremities Extremities: no ischemia, No edema - Abdominal General gastrointestinal: soft, non-tender - Integumentary Integumentary: Present: clear, warm - Psychiatric Psychiatric: appropriate mood/affect, cooperative - Neurologic Neurologic: CNII-XII intact, moves all extremities Results - Labs CBC & Chem 7: 07/07/18 04:49 07/07/18 04:49 Labs: Laboratory Last Values WBC 9.4 K/mm3 (4.5-11.0) 07/07/18 04:49 RBC 4.90 M/mm3 (3.65-5.03) 07/07/18 04:49 Hgb 13.8 gm/dl (10.1-14.3) 07/07/18 04:49 Hct 42.9 % (30.3-42.9) 07/07/18 04:49 MCV 88 fl (79-97) 07/07/18 04:49 MCH 28 pg (28-32) 07/07/18 04:49 MCHC 32 % (30-34) 07/07/18 04:49 RDW 14.1 % (13.2-15.2) 07/07/18 04:49 Plt Count 323 K/mm3 (140-440) 07/07/18 04:49 Lymph % (Auto) 10.4 % (13.4-35.0) L 07/07/18 04:49 [place] % (Auto) 2.1 % (0.0-7.3) 07/07/18 04:49 Eos % (Auto) 0.0 % (0.0-4.3) 07/07/18 04:49 Baso % (Auto) 0.8 % (0.0-1.8) 07/07/18 04:49 Lymph # 1.0 K/mm3 (1.2-5.4) L 07/07/18 04:49 [place] # 0.2 K/mm3 (0.0-0.8) 07/07/18 04:49 Eos # 0.0 K/mm3 (0.0-0.4) 07/07/18 04:49 Baso # 0.1 K/mm3 (0.0-0.1) 07/07/18 04:49 Seg Neutrophils % 86.7 % (40.0-70.0) H 07/07/18 04:49 Seg Neutrophils # 8.1 K/mm3 (1.8-7.7) H 07/07/18 04:49 Sodium 138 mmol/L (137-145) 07/07/18 04:49 Potassium 3.7 mmol/L (3.6-5.0) 07/07/18 04:49 Chloride 100.7 mmol/L (98-107) 07/07/18 04:49 Carbon Dioxide 21 mmol/L (22-30) L 07/07/18 04:49 Anion Gap 20 mmol/L 07/07/18 04:49 BUN 44 mg/dL (7-17) H 07/07/18 04:49 Creatinine 1.6 mg/dL (0.7-1.2) H 07/07/18 04:49 Estimated GFR 38 ml/min 07/07/18 04:49 BUN/Creatinine Ratio 28 % 07/07/18 04:49 Glucose 136 mg/dL (65-100) H 07/07/18 04:49 Hemoglobin A1c 6.0 % (4-6) 07/06/18 18:52 Calcium 9.7 mg/dL (8.4-10.2) 07/07/18 04:49 Total Bilirubin 0.60 mg/dL (0.1-1.2) 07/07/18 04:49 AST 31 units/L (5-40) 07/07/18 04:49 ALT 32 units/L (7-56) 07/07/18 04:49 Alkaline Phosphatase 63 units/L (35-129) 07/07/18 04:49 Total Creatine Kinase 102 units/L (30-135) 07/06/18 16:09 CK-MB (CK-2) < 1.0 ng/mL (0.0-4.0) 07/06/18 16:09 CK-MB (CK-2) Rel Index 0.9 (0-4) 07/06/18 16:09 Troponin T < 0.010 ng/mL (0.00-0.029) 07/06/18 16:09 Total Protein 7.3 g/dL (6.3-8.2) 07/07/18 04:49 Albumin 3.4 g/dL (3.9-5) L 07/07/18 04:49 Albumin/Globulin Ratio 0.9 % 07/07/18 04:49 Urine Color Fabiana (Yellow) 07/06/18 17:43 Urine Turbidity Clear (Clear) 07/06/18 17:43 Urine pH 5.0 (5.0-7.0) 07/06/18 17:43 Ur Specific [place] 1.017 (1.003-1.030) 07/06/18 17:43 Urine Protein <15 mg/dl mg/dL (Negative) 07/06/18 17:43 Urine Glucose (UA) Neg mg/dL (Negative) 07/06/18 17:43 Urine Ketones Neg mg/dL (Negative) 07/06/18 17:43 Urine Blood Neg (Negative) 07/06/18 17:43 Urine Nitrite Neg (Negative) 07/06/18 17:43 Urine Bilirubin Neg (Negative) 07/06/18 17:43 Urine Urobilinogen 4.0 mg/dL (<2.0) 07/06/18 17:43 Ur Leukocyte Esterase Neg (Negative) 07/06/18 17:43 Urine WBC (Auto) 2.0 /HPF (0.0-6.0) 07/06/18 17:43 Urine RBC (Auto) 2.0 /HPF (0.0-6.0) 07/06/18 17:43 U Epithel Cells (Auto) 10.0 /HPF (0-13.0) 07/06/18 17:43 Urine Bacteria (Auto) 1+ /HPF (Negative) 07/06/18 17:43 Hyaline Casts 1 /LPF 07/06/18 17:43 Urine Mucus Few /HPF 07/06/18 17:43
[2018-07-07] MEDS: PEPCID PO SCH (10:15)
[2018-07-07] MEDS: COLCHICINE PO SCH ×2 (10:15→21:17)
[2018-07-07] MEDS: APRESOLINE PO SCH ×2 (10:15→21:18)
[2018-07-07] MEDS: SODIUM CHLORIDE FLUSH SYRINGE 10 ML IV SCH ×2 (10:28→21:18)
[2018-07-07] MEDS: NACL 0.9% 1000 ML 1,000 ML IV SCH ×2 (10:30→21:14)
[2018-07-08 07:37] LABS: Basophils # (Auto) 0.1 K/mm3 (0.0-0.1); Basophils % (Auto) 0.6 % (0.0-1.8); Eosinophils % (Auto) 0.3 % (0.0-4.3); Hematocrit 40.1 % (30.3-42.9); Hemoglobin 12.7 gm/dl (10.1-14.3); Lymphocytes # (Auto) 1.4 K/mm3 (1.2-5.4); Lymphocytes % (Auto) 11.6 % (13.4-35.0); Mean Corpuscular HGB Conc 32 % (30-34); Mean Corpuscular Volume 88 fl (79-97); Monocytes # (Auto) 1.1 K/mm3 (0.0-0.8); Monocytes % (Auto) 8.5 % (0.0-7.3); Platelet Count 327 K/mm3 (140-440); Red Blood Count 4.58 M/mm3 (3.65-5.03); Red Cell Distribution Width 14.1 % (13.2-15.2)
[2018-07-08 07:58] LABS: Calcium 9.6 mg/dL (8.4-10.2)
--- NOTE | 2018-07-08 10:56 | Consultation ---
History of Present Illness - Reason for Consult Consult date: 07/08/18 acute renal failure, chronic renal failure Requesting physician: LISET HAJI - History of Present Illness Patient is a 77-year-old female that presents emergent what generalized weakness 3 days. Patient also complaining of dizziness and difficulty walking. Patient states she is having right arm weakness due to pain. Patient states she is having a gout flareup in her right arm. Patient states the pain in her right arm as a 8 out of 10 and is worse with movement and palpation and better with rest. Patient states that her symptoms are worsening. Patient also complaining of nausea vomiting and diarrhea. Patient states she is having difficulty swallowing anything down due to the symptoms. Patient is states she is having dry mouth as well MD Complaint: generalized weakness -: Sudden Location: generalized Severity: severe Severity scale (0 -10): 8 Consistency: constant Improves with: rest Worsens with: movement, exertion Context: new medication, recent illness Associated Symptoms: nausea/vomiting. denies: chest pain, confusion, dark stools, diaphoresis, dysuria, easy bruising, fever/chills, headaches, loss of appetite, myalgias, rash, shortness of breath, syncope Constitutional: malaise, weakness. denies: chills, fever Eyes: denies: eye pain, eye discharge, vision change ENT: denies: ear pain, throat pain Respiratory: denies: cough, shortness of breath, wheezing Cardiovascular: denies: chest pain, palpitations Endocrine: no symptoms reported Gastrointestinal: nausea, vomiting, diarrhea. denies: abdominal pain Genitourinary: denies: urgency, dysuria, discharge Musculoskeletal: denies: back pain, joint swelling, arthralgia Skin: denies: rash, lesions Neurological: weakness, vertigo. 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 Leg swelling - Surgical History Past Surgical History?: Yes Hx Cholecystectomy: Yes Additional Surgical History: hysterectomy - Family History Family history: no significant - Social History Smoking Status: Never Smoker Substance Use Type: None Medications and Allergies Allergies Allergy/AdvReac Type Severity Reaction Status Date / Time turkey Allergy Intermediate Hives Verified 07/07/18 19:18 naproxen AdvReac Mild Dizziness Verified 07/07/18 19:19 tramadol AdvReac Dizziness Unverified 07/07/18 19:19 Home Medications Medication Instructions Recorded Confirmed Last Taken Type Colchicine 0.6 mg PO DAILY #60 capsule 02/05/17 07/06/18 Unknown Rx Atenolol/Chlorthalidone [Tenoretic 1 tab PO QDAY 07/06/18 07/06/18 Unknown History 50-25] Famotidine [Pepcid] 40 mg PO QHS 07/06/18 07/06/18 Unknown History Febuxostat [Uloric] 40 mg PO DAILY 07/06/18 07/06/18 Unknown History Hydralazine HCl 50 mg PO BID 07/06/18 07/06/18 Unknown History Active Meds: Active Medications Acetaminophen (Tylenol) 650 mg PO Q4H PRN PRN Reason: Pain MILD(1-3)/Fever >100.5/MCKEON Colchicine (Colchicine) 0.6 mg PO BID [facility] Stop: 07/12/18 23:59 Last Admin: 07/07/18 21:17 Dose: Not Given Documented by: Famotidine (Pepcid) 20 mg PO DAILY [facility] Last Admin: 07/07/18 10:15 Dose: 20 mg Documented by: Hydralazine HCl (Apresoline) 50 mg PO BID [facility] Last Admin: 07/07/18 21:18 Dose: 50 mg Documented by: Sodium Chloride (Nacl 0.9% 1000 Ml) 1,000 mls @ 75 mls/hr IV DIRECT [facility] Last Admin: 07/07/18 21:14 Dose: 100 mls/hr Documented by: Miscellaneous Medication (Febuxostat [Uloric]) 40 mg PO DAILY [facility] Ondansetron HCl (Zofran) 4 mg IV Q8H PRN PRN Reason: Nausea And Vomiting Oxycodone/Acetaminophen (Percocet 5/325) 1 tab PO Q6H PRN PRN Reason: Pain, Moderate (4-6) Last Admin: 07/07/18 03:30 Dose: 1 tab Documented by: Prednisone (Deltasone) 20 mg PO QDAY [facility] Last Admin: 07/07/18 10:15 Dose: 20 mg Documented by: Sodium Chloride (Sodium Chloride Flush Syringe 10 Ml) 10 ml IV BID [facility] Last Admin: 07/07/18 21:18 Dose: 10 ml Documented by: Sodium Chloride (Sodium Chloride Flush Syringe 10 Ml) 10 ml IV PRN PRN PRN Reason: LINE FLUSH Exam - Vital Signs Vital signs: Vital Signs Resp Pulse Ox 18 98 07/06/18 14:39 07/06/18 14:39 - Physical Exam Narrative exam: - General Limitations: No Limitations, Other General appearance: alert, in no apparent distress - Head Head exam: Present: atraumatic, normocephalic - Eye Eye exam: Present: normal appearance - ENT ENT exam: Present: mucous membranes dry - Neck Neck exam: Present: normal inspection - Respiratory Respiratory exam: Present: normal lung sounds bilaterally. Absent: respiratory distress - Cardiovascular Cardiovascular Exam: Present: regular rate, normal rhythm. Absent: systolic murmur, diastolic murmur, rubs, gallop - GI/Abdominal GI/Abdominal exam: Present: soft, normal bowel sounds. Absent: distended, tenderness, guarding, rebound - Extremities Exam Extremities exam: Present: normal inspection - Back Exam Back exam: Present: normal inspection - Neurological Exam Neurological exam: Present: alert, oriented X3 - Psychiatric Psychiatric exam: Present: normal affect, normal mood - Skin Skin exam: Present: warm, dry, intact, normal color. Absent: rash Results - Lab Results 07/08/18 06:58 07/08/18 06:58 Most recent lab results Calcium 9.6 mg/dL (8.4-10.2) 07/08/18 06:58 Assessment and Plan Impression: * AYALA on ckd stage 3--baseline cr 1.44 * Acute Gastroenteritis; probably viral * Mild Hypokalemia * Hypertension; * Gastroesophageal reflux disease Plan * cr is better, close to baseline * gentle ivfs * avoid nephrotoxins * strict i/os * Continue antidiarrheals antiemetics supportive care and IV fluid * stable for dc from renal standpoint, follow up with dr guy in the office
[2018-07-08] MEDS: NON-FORMULARY (Febuxostat [Uloric] 40 MG) PO SCH (11:03)
--- NOTE | 2018-07-08 11:18 | Progress Note ---
Assessment and Plan Assessment and plan: --Acute Gastroenteritis; probably viral Continue antidiarrheals antiemetics supportive care and IV fluids --Acute kidney injury; due to vasomotor nephropathy Worsening renal function, IV fluids avoid nephrotoxins Nephrology consultation[patient follows with --Mild Hypokalemia; present on admission, corrected; Monitor electrolytes --Hypertension; moderate control continue current antihypertensives and when necessary medications --History of gout; stable on colchicine and steroids --Gastroesophageal reflux disease; Protonix --DVT prophylaxis; Lovenox --General debility; physical therapy occupational therapy and supportive care Fall precautions --PT recommended acute rehabilitation --DC planning; possible placement SNF versus subacute --Full CODE STATUS Closely monitor the patient and adjust the management as needed History Interval history: Patient seen and examined medical records reviewed Patient feels slightly better no new complaints Physical therapy recommended acute rehabilitation Alert awake not in acute distress Vital signs reviewed Hospitalist Physical - Constitutional Vitals: Temp Pulse Resp BP Pulse Ox 98.3 F 57 L 17 115/51 98 07/08/18 06:27 07/08/18 06:27 07/08/18 06:27 07/08/18 06:27 07/08/18 06:27 General appearance: Present: no acute distress, well-nourished, obese (morbidly obese) - EENT Eyes: Present: PERRL, EOM intact - Neck Neck: Present: supple, normal ROM - Respiratory Respiratory effort: normal Respiratory: bilateral: diminished, negative: rales, rhonchi, wheezing - Cardiovascular Rhythm: regular Heart Sounds: Present: S1 & S2 - Extremities Extremities: no ischemia, No edema - Abdominal General gastrointestinal: soft, non-tender, non-distended, normal bowel sounds - Integumentary Integumentary: Present: clear, warm - Psychiatric Psychiatric: appropriate mood/affect, cooperative - Neurologic Neurologic: CNII-XII intact, moves all extremities Results - Labs CBC & Chem 7: 07/08/18 06:58 07/08/18 06:58 Labs: Laboratory Last Values WBC 12.4 K/mm3 (4.5-11.0) H 07/08/18 06:58 RBC 4.58 M/mm3 (3.65-5.03) 07/08/18 06:58 Hgb 12.7 gm/dl (10.1-14.3) 07/08/18 06:58 Hct 40.1 % (30.3-42.9) 07/08/18 06:58 MCV 88 fl (79-97) 07/08/18 06:58 MCH 28 pg (28-32) 07/08/18 06:58 MCHC 32 % (30-34) 07/08/18 06:58 RDW 14.1 % (13.2-15.2) 07/08/18 06:58 Plt Count 327 K/mm3 (140-440) 07/08/18 06:58 Lymph % (Auto) 11.6 % (13.4-35.0) L 07/08/18 06:58 [place] % (Auto) 8.5 % (0.0-7.3) H 07/08/18 06:58 Eos % (Auto) 0.3 % (0.0-4.3) 07/08/18 06:58 Baso % (Auto) 0.6 % (0.0-1.8) 07/08/18 06:58 Lymph # 1.4 K/mm3 (1.2-5.4) 07/08/18 06:58 [place] # 1.1 K/mm3 (0.0-0.8) H 07/08/18 06:58 Eos # 0.0 K/mm3 (0.0-0.4) 07/08/18 06:58 Baso # 0.1 K/mm3 (0.0-0.1) 07/08/18 06:58 Seg Neutrophils % 79.0 % (40.0-70.0) H 07/08/18 06:58 Seg Neutrophils # 9.8 K/mm3 (1.8-7.7) H 07/08/18 06:58 Sodium 143 mmol/L (137-145) 07/08/18 06:58 Potassium 3.5 mmol/L (3.6-5.0) L 07/08/18 06:58 Chloride 104.4 mmol/L (98-107) 07/08/18 06:58 Carbon Dioxide 23 mmol/L (22-30) 07/08/18 06:58 Anion Gap 19 mmol/L 07/08/18 06:58 BUN 44 mg/dL (7-17) H 07/08/18 06:58 Creatinine 1.5 mg/dL (0.7-1.2) H 07/08/18 06:58 Estimated GFR 41 ml/min 07/08/18 06:58 BUN/Creatinine Ratio 29 % 07/08/18 06:58 Glucose 86 mg/dL (65-100) 07/08/18 06:58 Hemoglobin A1c 6.0 % (4-6) 07/06/18 18:52 Calcium 9.6 mg/dL (8.4-10.2) 07/08/18 06:58 Total Bilirubin 0.60 mg/dL (0.1-1.2) 07/07/18 04:49 AST 31 units/L (5-40) 07/07/18 04:49 ALT 32 units/L (7-56) 07/07/18 04:49 Alkaline Phosphatase 63 units/L (35-129) 07/07/18 04:49 Total Creatine Kinase 102 units/L (30-135) 07/06/18 16:09 CK-MB (CK-2) < 1.0 ng/mL (0.0-4.0) 07/06/18 16:09 CK-MB (CK-2) Rel Index 0.9 (0-4) 07/06/18 16:09 Troponin T < 0.010 ng/mL (0.00-0.029) 07/06/18 16:09 Total Protein 7.3 g/dL (6.3-8.2) 07/07/18 04:49 Albumin 3.4 g/dL (3.9-5) L 07/07/18 04:49 Albumin/Globulin Ratio 0.9 % 07/07/18 04:49 Urine Color [place] (Yellow) 07/06/18 17:43 Urine Turbidity Clear (Clear) 07/06/18 17:43 Urine pH 5.0 (5.0-7.0) 07/06/18 17:43 Ur Specific [place] 1.017 (1.003-1.030) 07/06/18 17:43 Urine Protein <15 mg/dl mg/dL (Negative) 07/06/18 17:43 Urine Glucose (UA) Neg mg/dL (Negative) 07/06/18 17:43 Urine Ketones Neg mg/dL (Negative) 07/06/18 17:43 Urine Blood Neg (Negative) 07/06/18 17:43 Urine Nitrite Neg (Negative) 07/06/18 17:43 Urine Bilirubin Neg (Negative) 07/06/18 17:43 Urine Urobilinogen 4.0 mg/dL (<2.0) 07/06/18 17:43 Ur Leukocyte Esterase Neg (Negative) 07/06/18 17:43 Urine WBC (Auto) 2.0 /HPF (0.0-6.0) 07/06/18 17:43 Urine RBC (Auto) 2.0 /HPF (0.0-6.0) 07/06/18 17:43 U Epithel Cells (Auto) 10.0 /HPF (0-13.0) 07/06/18 17:43 Urine Bacteria (Auto) 1+ /HPF (Negative) 07/06/18 17:43 Hyaline Casts 1 /LPF 07/06/18 17:43 Urine Mucus Few /HPF 07/06/18 17:43
[2018-07-08] MEDS: APRESOLINE PO SCH ×2 (11:39→22:25)
[2018-07-08] MEDS: DELTASONE PO SCH (11:39)
[2018-07-08] MEDS: PEPCID PO SCH (11:39)
[2018-07-08] MEDS: COLCHICINE PO SCH ×2 (11:39→22:25)
[2018-07-08] MEDS: SODIUM CHLORIDE FLUSH SYRINGE 10 ML IV SCH ×2 (11:44→22:00)
[2018-07-08] MEDS: MAGNESIUM SULFATE 2GM/50ML 2 GM/50 ML BAG IV ONE ×2 (14:00→18:34)
[2018-07-09 06:08] LABS: Basophils # (Auto) 0.1 K/mm3 (0.0-0.1); Basophils % (Auto) 1.1 % (0.0-1.8); Eosinophils # (Auto) 0.1 K/mm3 (0.0-0.4); Eosinophils % (Auto) 0.8 % (0.0-4.3); Hematocrit 42.8 % (30.3-42.9); Hemoglobin 13.5 gm/dl (10.1-14.3); Lymphocytes # (Auto) 1.9 K/mm3 (1.2-5.4); Lymphocytes % (Auto) 16.8 % (13.4-35.0); Mean Corpuscular HGB Conc 32 % (30-34); Mean Corpuscular Volume 89 fl (79-97); Monocytes # (Auto) 1.2 K/mm3 (0.0-0.8); Monocytes % (Auto) 10.8 % (0.0-7.3); Platelet Count 333 K/mm3 (140-440); Red Blood Count 4.82 M/mm3 (3.65-5.03); Red Cell Distribution Width 14.2 % (13.2-15.2)
[2018-07-09 06:18] LABS: Calcium 9.6 mg/dL (8.4-10.2)
[2018-07-09] MEDS: COLCHICINE PO SCH ×2 (09:32→21:49)
[2018-07-09] MEDS: APRESOLINE PO SCH ×2 (09:32→21:49)
[2018-07-09] MEDS: DELTASONE PO SCH (09:33)
[2018-07-09] MEDS: NON-FORMULARY (Febuxostat [Uloric] 40 MG) PO SCH (09:34)
[2018-07-09] MEDS: SODIUM CHLORIDE FLUSH SYRINGE 10 ML IV SCH ×2 (09:34→21:50)
[2018-07-09] MEDS: PEPCID PO SCH (09:38)
--- NOTE | 2018-07-09 10:00 | Progress Note ---
Assessment and Plan Impression: * AYALA on ckd stage 3--baseline cr 1.44 * Acute Gastroenteritis; probably viral * Mild Hypokalemia * Hypertension; * Gastroesophageal reflux disease Plan * cr is better, close to baseline * gentle ivfs * avoid nephrotoxins * strict i/os * Continue antidiarrheals antiemetics supportive care and IV fluid * stable for dc from renal standpoint, follow up with dr guy in the office Subjective Date of service: 07/09/18 Principal diagnosis: ckd Interval history: resting well in bed Objective - Exam Narrative Exam: - General Limitations: No Limitations, Other General appearance: alert, in no apparent distress - Head Head exam: Present: atraumatic, normocephalic - Eye Eye exam: Present: normal appearance - ENT ENT exam: Present: mucous membranes dry - Neck Neck exam: Present: normal inspection - Respiratory Respiratory exam: Present: normal lung sounds bilaterally. Absent: respiratory distress - Cardiovascular Cardiovascular Exam: Present: regular rate, normal rhythm. Absent: systolic murmur, diastolic murmur, rubs, gallop - GI/Abdominal GI/Abdominal exam: Present: soft, normal bowel sounds. Absent: distended, tenderness, guarding, rebound - Extremities Exam Extremities exam: Present: normal inspection - Back Exam Back exam: Present: normal inspection - Neurological Exam Neurological exam: Present: alert, oriented X3 - Psychiatric Psychiatric exam: Present: normal affect, normal mood - Skin Skin exam: Present: warm, dry, intact, normal color. Absent: rash - Vital Signs Vital signs: Vital Signs - 12hr 07/09/18 07/09/18 07/09/18 03:24 07:48 09:32 Temperature 97.4 F L 97.7 F Pulse Rate 66 52 L 52 L Respiratory 18 20 Rate Blood Pressure 154/61 130/54 130/54 O2 Sat by Pulse 94 97 Oximetry - Lab 07/09/18 05:41 07/09/18 05:41 Most recent lab results Calcium 9.6 mg/dL (8.4-10.2) 07/09/18 05:41 Magnesium 1.90 mg/dL (1.7-2.3) 07/09/18 05:41 Medications & Allergies - Medications Allergies/Adverse Reactions: Allergies turkey Allergy (Intermediate, Verified 07/07/18 19:18) Hives naproxen Adverse Reaction (Mild, Verified 07/07/18 19:19) Dizziness tramadol Adverse Reaction (Unverified 07/07/18 19:19) Dizziness Home Medications: Home Medications Medication Instructions Recorded Confirmed Last Taken Type Colchicine 0.6 mg PO DAILY #60 capsule 02/05/17 07/06/18 Unknown Rx Atenolol/Chlorthalidone [Tenoretic 1 tab PO QDAY 07/06/18 07/06/18 Unknown History 50-25] Famotidine [Pepcid] 40 mg PO QHS 07/06/18 07/06/18 Unknown History Febuxostat [Uloric] 40 mg PO DAILY 07/06/18 07/06/18 Unknown History Hydralazine HCl 50 mg PO BID 07/06/18 07/06/18 Unknown History Active Medications: Generic Name Dose Route Start Last Admin Trade Name Freq PRN Reason Stop Dose Admin Acetaminophen 650 mg 07/06/18 16:58 Tylenol PO Q4H PRN Pain MILD(1-3)/Fever >100.5/MCKEON Colchicine 0.6 mg 07/06/18 22:00 07/09/18 09:32 Colchicine PO 07/12/18 23:59 0.6 mg BID [facility] Administration Famotidine 20 mg 07/07/18 10:00 07/09/18 09:38 Pepcid PO 20 mg DAILY [facility] Administration Hydralazine HCl 50 mg 07/06/18 22:00 07/09/18 09:32 Apresoline PO 50 mg BID [facility] Administration Sodium Chloride 1,000 mls @ 75 mls/hr 07/06/18 18:00 07/07/18 21:14 Nacl 0.9% 1000 Ml IV 100 mls/hr DIRECT [facility] Administration Miscellaneous Medication 40 mg 07/06/18 17:45 07/09/18 09:34 Febuxostat [Uloric] PO 40 mg DAILY [facility] Administration Ondansetron HCl 4 mg 07/06/18 16:58 Zofran IV Q8H PRN Nausea And Vomiting Oxycodone/Acetaminophen 1 tab 07/06/18 17:30 07/07/18 03:30 Percocet 5/325 PO 1 tab Q6H PRN Administration Pain, Moderate (4-6) Prednisone 20 mg 07/06/18 18:00 07/09/18 09:33 Deltasone PO 20 mg QDAY [facility] Administration Sodium Chloride 10 ml 07/06/18 22:00 07/09/18 09:34 Sodium Chloride Flush Syringe 10 Ml IV 10 ml BID [facility] Administration Sodium Chloride 10 ml 07/06/18 16:58 Sodium Chloride Flush Syringe 10 Ml IV PRN PRN LINE FLUSH
[2018-07-09] MEDS ORDERED: MILK OF MAGNESIA PO ONE (10:49)
--- NOTE | 2018-07-09 14:33 | Progress Note ---
Assessment and Plan Assessment and plan: --Acute Gastroenteritis; probably viral, and is currently improved Continue antidiarrheals antiemetics ,IV fluids --Acute kidney injury; due to vasomotor nephropathy Creatinine today is 1.4, avoid nephrotoxins, and total fluids --Mild Hypokalemia; corrected --Hypertension; moderate control continue current antihypertensives and when necessary medications --History of gout; stable on colchicine and steroids --Gastroesophageal reflux disease; Protonix --DVT prophylaxis; Lovenox --General debility; physical therapy occupational therapy and supportive care Fall precautions --PT recommended acute rehabilitation --DC planning; possible home with home health upon discharge --Full CODE STATUS Closely monitor the patient and adjust the management as needed Possible discharge home tomorrow if stable Plan of care is reviewed with the patient and her nurse History Interval history: Patient seen and examined medical records reviewed Patient feels slightly better no new complaints Renal function significantly improved. Creatinine is 1.4 Patient's diarrhea resolved Complaints of generalized weakness Alert awake oriented 3 Vital signs reviewed Hospitalist Physical - Constitutional Vitals: Temp Pulse Resp BP Pulse Ox 97.7 F 52 L 20 130/54 97 07/09/18 07:48 07/09/18 09:32 07/09/18 07:48 07/09/18 09:32 07/09/18 07:48 General appearance: Present: no acute distress, well-nourished, obese (morbidly obese) - EENT Eyes: Present: PERRL, EOM intact - Neck Neck: Present: supple, normal ROM - Respiratory Respiratory effort: normal Respiratory: bilateral: diminished, negative: rales, rhonchi, wheezing - Cardiovascular Rhythm: regular Heart Sounds: Present: S1 & S2 - Extremities Extremities: no ischemia, No edema - Abdominal General gastrointestinal: soft, non-tender, non-distended, normal bowel sounds - Integumentary Integumentary: Present: clear, warm - Psychiatric Psychiatric: appropriate mood/affect, cooperative - Neurologic Neurologic: CNII-XII intact, moves all extremities Results - Labs CBC & Chem 7: 07/09/18 05:41 07/09/18 05:41 Labs: Laboratory Last Values WBC 11.1 K/mm3 (4.5-11.0) H 07/09/18 05:41 RBC 4.82 M/mm3 (3.65-5.03) 07/09/18 05:41 Hgb 13.5 gm/dl (10.1-14.3) 07/09/18 05:41 Hct 42.8 % (30.3-42.9) 07/09/18 05:41 MCV 89 fl (79-97) 07/09/18 05:41 MCH 28 pg (28-32) 07/09/18 05:41 MCHC 32 % (30-34) 07/09/18 05:41 RDW 14.2 % (13.2-15.2) 07/09/18 05:41 Plt Count 333 K/mm3 (140-440) 07/09/18 05:41 Lymph % (Auto) 16.8 % (13.4-35.0) 07/09/18 05:41 [place] % (Auto) 10.8 % (0.0-7.3) H 07/09/18 05:41 Eos % (Auto) 0.8 % (0.0-4.3) 07/09/18 05:41 Baso % (Auto) 1.1 % (0.0-1.8) 07/09/18 05:41 Lymph # 1.9 K/mm3 (1.2-5.4) 07/09/18 05:41 [place] # 1.2 K/mm3 (0.0-0.8) H 07/09/18 05:41 Eos # 0.1 K/mm3 (0.0-0.4) 07/09/18 05:41 Baso # 0.1 K/mm3 (0.0-0.1) 07/09/18 05:41 Seg Neutrophils % 70.5 % (40.0-70.0) H 07/09/18 05:41 Seg Neutrophils # 7.9 K/mm3 (1.8-7.7) H 07/09/18 05:41 Sodium 142 mmol/L (137-145) 07/09/18 05:41 Potassium 3.8 mmol/L (3.6-5.0) 07/09/18 05:41 Chloride 106.2 mmol/L (98-107) 07/09/18 05:41 Carbon Dioxide 25 mmol/L (22-30) 07/09/18 05:41 Anion Gap 15 mmol/L 07/09/18 05:41 BUN 37 mg/dL (7-17) H 07/09/18 05:41 Creatinine 1.4 mg/dL (0.7-1.2) H 07/09/18 05:41 Estimated GFR 44 ml/min 07/09/18 05:41 BUN/Creatinine Ratio 26 % 07/09/18 05:41 Glucose 89 mg/dL (65-100) 07/09/18 05:41 Hemoglobin A1c 6.0 % (4-6) 07/06/18 18:52 Calcium 9.6 mg/dL (8.4-10.2) 07/09/18 05:41 Magnesium 1.90 mg/dL (1.7-2.3) 07/09/18 05:41 Total Bilirubin 0.60 mg/dL (0.1-1.2) 07/07/18 04:49 AST 31 units/L (5-40) 07/07/18 04:49 ALT 32 units/L (7-56) 07/07/18 04:49 Alkaline Phosphatase 63 units/L (35-129) 07/07/18 04:49 Total Creatine Kinase 102 units/L (30-135) 07/06/18 16:09 CK-MB (CK-2) < 1.0 ng/mL (0.0-4.0) 07/06/18 16:09 CK-MB (CK-2) Rel Index 0.9 (0-4) 07/06/18 16:09 Troponin T < 0.010 ng/mL (0.00-0.029) 07/06/18 16:09 Total Protein 7.3 g/dL (6.3-8.2) 07/07/18 04:49 Albumin 3.4 g/dL (3.9-5) L 07/07/18 04:49 Albumin/Globulin Ratio 0.9 % 07/07/18 04:49 Urine Color Fabiana (Yellow) 07/06/18 17:43 Urine Turbidity Clear (Clear) 07/06/18 17:43 Urine pH 5.0 (5.0-7.0) 07/06/18 17:43 Ur Specific [place] 1.017 (1.003-1.030) 07/06/18 17:43 Urine Protein <15 mg/dl mg/dL (Negative) 07/06/18 17:43 Urine Glucose (UA) Neg mg/dL (Negative) 07/06/18 17:43 Urine Ketones Neg mg/dL (Negative) 07/06/18 17:43 Urine Blood Neg (Negative) 07/06/18 17:43 Urine Nitrite Neg (Negative) 07/06/18 17:43 Urine Bilirubin Neg (Negative) 07/06/18 17:43 Urine Urobilinogen 4.0 mg/dL (<2.0) 07/06/18 17:43 Ur Leukocyte Esterase Neg (Negative) 07/06/18 17:43 Urine WBC (Auto) 2.0 /HPF (0.0-6.0) 07/06/18 17:43 Urine RBC (Auto) 2.0 /HPF (0.0-6.0) 07/06/18 17:43 U Epithel Cells (Auto) 10.0 /HPF (0-13.0) 07/06/18 17:43 Urine Bacteria (Auto) 1+ /HPF (Negative) 07/06/18 17:43 Hyaline Casts 1 /LPF 07/06/18 17:43 Urine Mucus Few /HPF 07/06/18 17:43
[2018-07-10 05:06] LABS: Calcium 9.4 mg/dL (8.4-10.2)
--- NOTE | 2018-07-10 08:16 | Discharge Summary ---
Providers - Providers Date of Admission: 07/06/18 16:17 Date of discharge: 07/10/18 Attending physician: LISET HAJI 07/06/18 Consult to Case Management [CONS] Routine Services Needed at Discharge: Home Health Services Eligibility Worker Notified:: telehealth case manager Comment:: alf facility placement Additional Physician Instructions: custodial facility placement 07/06/18 17:34 Physical Therapy Evaluation and Treat [CONS] Routine Comment: Reason For Exam: debility 07/07/18 13:38 Consult to Physician [CONS] Routine Comment: Consulting Provider: SHEELA ALEMAN Physician Instructions: Reason For Exam: AYALA Primary care physician: MAC SPENCER Hospitalization Reason for admission: nausea, vomiting and diarrhea Condition: Fair Pertinent studies: CT head ;no acute abnormality noted; Hospital course: 77-year-old female patient with significant past medical history of hypertension osteoarthritis was admitted through emergency room with nausea vomiting and diarrhea of 2 days duration patient was symptomatically managed noted to have acute kidney injury secondary to ATN, evaluated by nephrology medications optimized Blood pressures but was closely monitored, Symptoms significantly improved Received physical therapy, PT recommended acute rehabilitation however the patient and the family refused Today she is comfortable no new complaints vital signs stable Physical examination unremarkable, Hemodynamically and clinically stable Discharge home with home health, Discharge diagnosis: --Acute Gastroenteritis; probably viral, and is currently improved Continue antidiarrheals antiemetics ,IV fluids --Acute kidney injury; due to vasomotor nephropathy Creatinine today is 1.4, avoid nephrotoxins, and total fluids --Mild Hypokalemia; corrected --Hypertension; moderate control continue current antihypertensives and when necessary medications --History of gout; stable on colchicine and steroids --Gastroesophageal reflux disease; Protonix --DVT prophylaxis; Lovenox --General debility; physical therapy occupational therapy and supportive care Fall precautions --PT recommended acute rehabilitation Disposition: [id number]/TX-06 HOME UNDER HOME [facility] Time spent for discharge: 32 min Core Measure Documentation - Palliative Care Palliative Care/ Comfort Measures: Not Applicable - Core Measures Any of the following diagnoses?: none Exam - Constitutional Vitals: Temp Pulse Resp BP Pulse Ox 98.6 F 59 L 18 140/65 99 07/09/18 19:45 07/10/18 07:39 07/10/18 07:39 07/09/18 21:49 07/10/18 07:39 General appearance: Present: no acute distress, well-nourished, obese - EENT Eyes: Present: PERRL, EOM intact - Neck Neck: Present: supple, normal ROM - Respiratory Respiratory effort: normal Respiratory: bilateral: diminished, negative: rales, rhonchi, wheezing - Cardiovascular Rhythm: regular Heart Sounds: Present: S1 & S2 - Extremities Extremities: no ischemia, No edema - Abdominal General gastrointestinal: Present: soft, non-tender, non-distended, normal bowel sounds - Integumentary Integumentary: Present: clear, warm - Musculoskeletal Musculoskeletal: strength equal bilaterally - Psychiatric Psychiatric: appropriate mood/affect, cooperative - Neurologic Neurologic: moves all extremities Plan Activity: advance as tolerated, fall precautions Diet: low salt Additional Instructions: Plenty of oral fluids. High-fiber diet Follow up with: MAC SPENCER MD [Primary Care Provider] - 3-5 Days SHEELA ALEMAN MD [Staff Physician] - 7 Days Prescriptions: Docusate Sodium [Colace CAP] 100 mg PO BID PRN #30 capsule PRN Reason: Constipation predniSONE [Deltasone] 10 mg PO DAILY #5 tablet
[2018-07-10] MEDS ORDERED: MILK OF MAGNESIA PO ONE (09:00)
[2018-07-10] MEDS ORDERED: MILK OF MAGNESIA PO PRN (10:00)
[2018-07-10] MEDS ORDERED: COLACE PO SCH (10:00)
[2018-07-10] MEDS: COLCHICINE PO SCH (11:06)
[2018-07-10] MEDS: APRESOLINE PO SCH (11:07)
[2018-07-10] MEDS: PEPCID PO SCH (11:07)
[2018-07-10] MEDS: DELTASONE PO SCH (11:07)
[2018-07-10] MEDS: SODIUM CHLORIDE FLUSH SYRINGE 10 ML IV SCH (11:13)
[2018-07-10] MEDS: NON-FORMULARY (Febuxostat [Uloric] 40 MG) PO SCH (11:13)
[2018-07-10 11:14] VITALS: BP 157/75
[2018-07-10] MEDS ORDERED: DULCOLAX PO PRN (13:54)
[2018-07-10] MEDS ORDERED: DULCOLAX PR ONE (15:00)
== END 2018-07-10 15:00 | disposition home health service (06) | DRG 391 ==
LOC: ED 14:28 → 4A 16:17 → 2B-ACE 07-08 21:43
PROVIDERS: ADMIT Internal Medicine; ATTEND Internal Medicine
DX: A08.4 Viral intestinal infection, unspecified (principal); N17.0 Acute kidney failure with tubular necrosis; M10.011 Idiopathic gout, right shoulder; E87.6 Hypokalemia; N18.3 Chronic kidney disease, stage 3 (moderate); I12.9 Hypertensive chronic kidney disease with stage 1 through stage 4 chronic kidney disease, or unspecified chronic kidney disease; K21.9 Gastro-esophageal reflux disease without esophagitis; R53.81 Other malaise; M19.90 Unspecified osteoarthritis, unspecified site; Z90.49 Acquired absence of other specified parts of digestive tract; Z90.710 Acquired absence of both cervix and uterus; Z79.899 Other long term (current) drug therapy
CPT/HCPCS: 36415; 70450; 80048; 80053; 81001; 82550; 82553; 83036; 83735; 84484; 85025; 85027; 93005; 93010; 96374; 99285; G0378; J2930; J3475; J3480; J7030; J7512

== ENCOUNTER 2018-09-11 20:35 | Inpatient (IN) | payer MEDICARE ==
[2018-09-11 22:00] LABS: Calcium 10.3 mg/dL (8.4-10.2)
[2018-09-11] MEDS ORDERED: DECADRON IV ONE (22:55)
[2018-09-11] MEDS ORDERED: MORPHINE IV ONE (22:55)
[2018-09-11] MEDS ORDERED: ZOFRAN IV ONE (22:56)
--- NOTE | 2018-09-11 23:00 | Emergency Department Report ---
ED General Adult HPI - General Chief complaint: Pain General Stated complaint: BACK/FLANK PAIN AND DARK URINE Time Seen by Provider: 09/11/18 21:16 Source: patient, EMS Mode of arrival: Stretcher Limitations: No Limitations - History of Present Illness Initial comments: Mrs. Muhammad is a 77 yo female who has had generalized malaise and severe joint pain for several days. Also has back pain and leg spasms. Seen at [facility] on Wednesday. Has been immobile due to severe pain mostly in left knee and ankle. Also has bilateral shoulder pain. Hx of gout, osteoarthritis, renal insufficiency, HTN, GERD Stayed a SNF for 21 days provided by health insurance after discharged from our hospital in June. Mrs. Muhammad has been living with her sister who is at the bedside for several years. She has noticed dysfunctional decline over the years. -: Gradual, month(s) (several, worse over the last week) Location: left, right, upper extremity, lower extremity Quality: aching Consistency: constant Worsens with: movement Associated Symptoms: denies other symptoms - Related Data Home Medications Medication Instructions Recorded Confirmed Last Taken Atenolol/Chlorthalidone [Tenoretic 1 tab PO QDAY 07/06/18 07/06/18 Unknown 50-25] Famotidine [Pepcid] 40 mg PO QHS 07/06/18 07/06/18 Unknown Febuxostat [Uloric] 40 mg PO DAILY 07/06/18 07/06/18 Unknown Hydralazine HCl 50 mg PO BID 07/06/18 07/06/18 Unknown Previous Rx's Medication Instructions Recorded Last Taken Type Colchicine 0.6 mg PO DAILY #60 capsule 02/05/17 Unknown Rx Docusate Sodium [Colace CAP] 100 mg PO BID PRN #30 capsule 07/10/18 Unknown Rx predniSONE [Deltasone] 10 mg PO DAILY #5 tablet 07/10/18 Unknown Rx Allergies Allergy/AdvReac Type Severity Reaction Status Date / Time turkey Allergy Intermediate Hives Verified 07/07/18 19:18 tramadol AdvReac Intermediate Dizziness Verified 07/10/18 03:08 naproxen AdvReac Mild Dizziness Verified 07/07/18 19:19 ED Review of Systems ROS: Stated complaint: BACK/FLANK PAIN AND DARK URINE Other details as noted in HPI Comment: All other systems reviewed and negative Constitutional: denies: fever, malaise Cardiovascular: denies: chest pain ED Past Medical Hx - Past Medical History Previous Medical History?: Yes Hx Hypertension: Yes Hx Arthritis: Yes Hx HIV: No Additional medical history: '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 Leg swelling - Surgical History Hx Cholecystectomy: Yes Additional Surgical History: hysterectomy - Social History Smoking Status: Never Smoker - Medications Home Medications: Home Medications Medication Instructions Recorded Confirmed Last Taken Type Colchicine 0.6 mg PO DAILY #60 capsule 02/05/17 07/06/18 Unknown Rx Atenolol/Chlorthalidone [Tenoretic 1 tab PO QDAY 07/06/18 07/06/18 Unknown History 50-25] Famotidine [Pepcid] 40 mg PO QHS 07/06/18 07/06/18 Unknown History Febuxostat [Uloric] 40 mg PO DAILY 07/06/18 07/06/18 Unknown History Hydralazine HCl 50 mg PO BID 07/06/18 07/06/18 Unknown History Docusate Sodium [Colace CAP] 100 mg PO BID PRN #30 capsule 07/10/18 Unknown Rx predniSONE [Deltasone] 10 mg PO DAILY #5 tablet 07/10/18 Unknown Rx ED Physical Exam - General Limitations: No Limitations General appearance: alert, in no apparent distress, other (appears in pain, frail,) - Head Head exam: Present: atraumatic, normocephalic - Eye Eye exam: Present: normal appearance - ENT ENT exam: Present: mucous membranes dry - Neck Neck exam: Present: normal inspection, full ROM - Respiratory Respiratory exam: Present: normal lung sounds bilaterally. Absent: respiratory distress, wheezes, rales, rhonchi - Cardiovascular Cardiovascular Exam: Present: regular rate, normal rhythm, normal heart sounds. Absent: systolic murmur, diastolic murmur, rubs, gallop - GI/Abdominal GI/Abdominal exam: Present: soft, normal bowel sounds. Absent: distended, tenderness, guarding, rebound - Extremities Exam Extremities exam: Present: other (edematous left knee, edematous left ankle with mild redness medial malleolus) - Neurological Exam Neurological exam: Present: alert, oriented X3 - Psychiatric Psychiatric exam: Present: depressed, flat affect - Skin Skin exam: Present: warm, dry, intact, normal color. Absent: rash ED Course Vital Signs 09/11/18 09/11/18 20:51 21:00 Temperature 99.1 F Pulse Rate 78 Respiratory 16 1 L Rate Blood Pressure 122/84 [Right] O2 Sat by Pulse 99 99 Oximetry ED Medical Decision Making - Lab Data Result diagrams: 09/11/18 22:58 09/11/18 21:11 - Radiology Data Radiology results: image reviewed interpreted by me: AP portable chest interpreted by me no acute process left femur, left tib-fib radiographs: Severe DJD of the left ankle and left knee - Medical Decision Making 1. Diffuse joint pain in shoulders, left knee and left ankle: hx of gout, hx of osteoarthritis, radiographs obtained which revealed severe DJD at the left knee and left ankle 2. Acute rhabdomyolysis as a result of immobilization, IVF initiated in ED Admitted to hospitalist service in fair condition Critical care attestation.: If time is entered above; I have spent that time in minutes in the direct care of this critically ill patient, excluding procedure time. ED Disposition Clinical Impression: Acute renal failure due to rhabdomyolysis, Non-traumatic rhabdomyolysis, Left knee DJD, Degenerative joint disease of left ankle, Acute gout, Severe disability Disposition: OP ADMIT IP TO THIS HOSP Is pt being admited?: Yes Does the pt Need Aspirin: No Condition: Stable Referrals: MAC SPENCER MD [Primary Care Provider] - 3-5 Days
[2018-09-11 23:14] LABS: Bacteria,Urine 2+ /HPF (Negative); Bilirubin,Urine NEG (Negative); Blood,Urine NEG (Negative); Color,Urine Amber (Yellow); Hyaline Casts,Urine 4 /LPF; Mucus,Urine FEW /HPF; Protein,Urine <15 mg/dL mg/dL (Negative)
[2018-09-11] MEDS ORDERED: NACL 0.9% 1000 ML 1,000 ML IV ONE (23:17)
[2018-09-11 23:27] LABS: Basophils # (Auto) 0.2 K/mm3 (0.0-0.1); Basophils % (Auto) 1.5 % (0.0-1.8); Eosinophils % (Auto) 0.1 % (0.0-4.3); Hematocrit 39.8 % (30.3-42.9); Hemoglobin 12.9 gm/dl (10.1-14.3); Lymphocytes # (Auto) 1.3 K/mm3 (1.2-5.4); Mean Corpuscular HGB Conc 32 % (30-34); Mean Corpuscular Volume 87 fl (79-97); Monocytes # (Auto) 1.8 K/mm3 (0.0-0.8); Monocytes % (Auto) 11.3 % (0.0-7.3); Platelet Count 421 K/mm3 (140-440); Red Blood Count 4.58 M/mm3 (3.65-5.03)
--- NOTE | 2018-09-12 00:45 | XRay Report ---
PROCEDURE: XR FEMUR 2+V LT TECHNIQUE: Left femur radiographs, AP and lateral views. HISTORY: pain COMPARISONS: None . FINDINGS: Fracture (s) and/or Dislocation(s): None . Joint space(s): There is degenerative arthrosis of the knee joint. . Soft tissues: Normal . Bone mineralization: Normal . Foreign bodies: None . IMPRESSION: There are no fractures or malalignments. . This document is electronically signed by Haresh Shearer MD., September 12 2018 12:43:20 AM ET
--- NOTE | 2018-09-12 00:49 | XRay Report ---
PROCEDURE: XR TIBIA FIBULA 2V LT TECHNIQUE: Left tibia and fibula radiographs, AP and lateral views. HISTORY: pain COMPARISONS: None. FINDINGS: Fracture (s) and/or Dislocation(s): None. Joint space(s): There is mild degenerative arthrosis of the knee and ankle joints.. Soft tissues: Normal. Bone mineralization: Normal. Foreign bodies: None. IMPRESSION: There is no acute bony abnormality.. This document is electronically signed by Haresh Shearer MD., September 12 2018 12:47:03 AM ET
--- NOTE | 2018-09-12 00:53 | XRay Report ---
PROCEDURE: XR CHEST 1V AP TECHNIQUE: Chest radiograph single view. HISTORY: dyspnea COMPARISONS: None . FINDINGS: Heart: Normal. Mediastinum/Vessels: Normal. Lungs/Pleural space: Lungs are expanded. There are no infiltrates, effusions or pneumothoraces.. Bony thorax: No acute osseous abnormality. Life support devices: None. IMPRESSION: No acute cardiopulmonary abnormality. This document is electronically signed by Haresh Shearer MD., September 12 2018 12:51:45 AM ET
--- NOTE | 2018-09-12 00:58 | History and Physical Report ---
History of Present Illness Date of examination: 09/12/18 History of present illness: 77-year-old woman with a history of hypertension, GERD, chronic disease, gout, arthritis comes emergency room complaining of pain all over, especially in the knees, shoulder and her back, left leg. Sister states she was taken to [facility] on Wednesday, she was given pain medication and a muscle relaxant. She has been sleeping most of the day, unable to do ADLs without assistance, she is unable to care for the patient at home Review of systems Constitutional: no weight loss, chills, fever Ears, eyes, nose, mouth and throat: no nasal congestion, no nasal discharge, no sinus pressure, no vision change, no red eye. Neck: No neck pain or rigidity. Cardiovascular: no palpitations, chest pain Respiratory: no cough, shortness of breath Gastrointestinal: no hematochezia, abdominal pain Genitourinary : no frequency , no hematuria Musculoskeletal: no joint swelling or muscle ache Integumentary: no rash, no pruritis Neurological: no parathesias, no focal weakness Endocrine: no cold or heat intolerance, no polyuria or polydipsia Hematologic/Lymphatic: no easy bruising, no easy bleeding, no gland swelling Allergic/Immunologic: no urticaria, no angioedema. PAST MEDICAL HISTORY:hypertension, GERD, chronic disease, gout, arthritis PAST SURGICAL HISTORY: Cholecystectomy, hysterectomy SOCIAL HISTORY: Denies alcohol, drugs, tobacco FAMILY HISTORY: Hypertension Medications and Allergies Allergies Allergy/AdvReac Type Severity Reaction Status Date / Time turkey Allergy Intermediate Hives Verified 07/07/18 19:18 tramadol AdvReac Intermediate Dizziness Verified 07/10/18 03:08 naproxen AdvReac Mild Dizziness Verified 07/07/18 19:19 Home Medications Medication Instructions Recorded Confirmed Last Taken Type Colchicine 0.6 mg PO DAILY #60 capsule 02/05/17 07/06/18 Unknown Rx Atenolol/Chlorthalidone [Tenoretic 1 tab PO QDAY 07/06/18 07/06/18 Unknown History 50-25] Famotidine [Pepcid] 40 mg PO QHS 07/06/18 07/06/18 Unknown History Febuxostat [Uloric] 40 mg PO DAILY 07/06/18 07/06/18 Unknown History Hydralazine HCl 50 mg PO BID 07/06/18 07/06/18 Unknown History Docusate Sodium [Colace CAP] 100 mg PO BID PRN #30 capsule 07/10/18 Unknown Rx predniSONE [Deltasone] 10 mg PO DAILY #5 tablet 07/10/18 Unknown Rx Exam - Physical Exam Narrative exam: General Apperance: The patient lying in bed, breathing comfortable HEENT: Normocephalic, atraumatic. Pupils equally round and reactive to light, EOMI, no sclericterus or JVD or thyromegaly or nodule. , no carotid bruit, mucous membranes moist, no exudate or erythema Heart: S1-S2, regular is rhythm Lungs: Clear to auscultation bilaterally, breathing comfortable Abdomen: Positive bowel sounds, soft, nontender, nondistended, no organomegaly Extremities: No edema cyanosis clubbing Skin: no rash, nodule, warm and dry Neuro: cranial nerves 2-12 intact, speech is fluent, motor/sensory intact - Constitutional Vitals: Temp Pulse Resp BP Pulse Ox 99.1 F 78 1 L 122/84 99 09/11/18 20:51 09/11/18 20:51 09/11/18 21:00 09/11/18 20:51 09/11/18 21:00 Results - Labs CBC & Chem 7: 09/11/18 22:58 09/11/18 21:11 Labs: Abnormal lab results 09/11/18 09/11/18 09/11/18 Range/Units 21:11 22:30 22:58 WBC 15.8 H (4.5-11.0) K/mm3 Lymph % (Auto) 8.0 L (13.4-35.0) % [place] % (Auto) 11.3 H (0.0-7.3) % [place] # 1.8 H (0.0-0.8) K/mm3 Baso # 0.2 H (0.0-0.1) K/mm3 Seg Neutrophils % 79.1 H (40.0-70.0) % Seg Neutrophils # 12.5 H (1.8-7.7) K/mm3 Sodium 131 L (137-145) mmol/L Chloride 90.4 L (98-107) mmol/L BUN 47 H (7-17) mg/dL Creatinine 2.0 H (0.7-1.2) mg/dL Glucose 111 H (65-100) mg/dL Calcium 10.3 H (8.4-10.2) mg/dL Total Creatine Kinase (30-135) units/L Ur Specific [place] 1.032 H (1.003-1.030) 09/11/18 Range/Units 23:03 WBC (4.5-11.0) K/mm3 Lymph % (Auto) (13.4-35.0) % [place] % (Auto) (0.0-7.3) % [place] # (0.0-0.8) K/mm3 Baso # (0.0-0.1) K/mm3 Seg Neutrophils % (40.0-70.0) % Seg Neutrophils # (1.8-7.7) K/mm3 Sodium (137-145) mmol/L Chloride (98-107) mmol/L BUN (7-17) mg/dL Creatinine (0.7-1.2) mg/dL Glucose (65-100) mg/dL Calcium (8.4-10.2) mg/dL Total Creatine Kinase 1046 H (30-135) units/L Ur Specific [place] (1.003-1.030) - Imaging and Cardiology Chest x-ray: report reviewed Assessment and Plan X-ray of femur, tib-fib reviewed Assessment Rhabdomyolysis Failure to thrive Acute renal insufficiency Leg pain Leukocytosis, no sign of infection hypertension, GERD chronic disease gout arthritis Plan Admit to medicine Start IV fluid, IV morphine, check Doppler of lower extremity Consult physical therapy, supportive employment case manager Continue appropriate outpatient medications Pain medication, DVT prophylaxis
[2018-09-12] MEDS ORDERED: TYLENOL PO PRN (01:11)
[2018-09-12] MEDS ORDERED: PERCOCET 5/325 PO PRN (01:11)
[2018-09-12] MEDS ORDERED: SODIUM CHLORIDE FLUSH SYRINGE 10 ML IV PRN (01:11)
[2018-09-12] MEDS ORDERED: ZOFRAN IV PRN (01:11)
[2018-09-12] MEDS ORDERED: MORPHINE IV PRN (01:13)
[2018-09-12] MEDS ORDERED: NACL 0.45% 1000 ML 1,000 ML IV SCH (02:00)
[2018-09-12] MEDS ORDERED: COLACE PO PRN (06:29)
[2018-09-12 07:07] LABS: Hematocrit 41.9 % (30.3-42.9); Hemoglobin 13.4 gm/dl (10.1-14.3); Mean Corpuscular HGB Conc 32 % (30-34); Mean Corpuscular Volume 87 fl (79-97); Platelet Count 388 K/mm3 (140-440); Red Blood Count 4.85 M/mm3 (3.65-5.03); Red Cell Distribution Width 14.8 % (13.2-15.2)
[2018-09-12 07:22] LABS: Calcium 10.1 mg/dL (8.4-10.2)
[2018-09-12] MEDS: NACL 0.9% 1000 ML 1,000 ML IV SCH ×2 (07:53→22:45)
[2018-09-12] MEDS: APRESOLINE PO SCH ×2 (09:44→21:59)
[2018-09-12] MEDS: TENORMIN PO SCH (09:44)
[2018-09-12] MEDS: LOVENOX SUB-Q SCH (09:45)
[2018-09-12] MEDS: SODIUM CHLORIDE FLUSH SYRINGE 10 ML IV SCH ×2 (09:45→22:00)
[2018-09-12] MEDS: DELTASONE PO SCH (09:49)
[2018-09-12] MEDS ORDERED: LOVENOX SUB-Q SCH (10:00)
[2018-09-12] MEDS ORDERED: COLCHICINE PO SCH (10:00)
[2018-09-12] MEDS ORDERED: NON-FORMULARY (Febuxostat [Uloric] 40 MG) PO SCH (10:00)
[2018-09-12] MEDS: THALITONE PO SCH (10:28)
--- NOTE | 2018-09-12 11:11 | Vascular Lab Report ---
PROCEDURE: VL VENOUS DUPLEX LE BILAT TECHNIQUE: Christian scale, color and pulsed Doppler ultrasound with color flow and spectral analysis eval uation of both lower extremities were performed to assess for deep vein thrombosis. HISTORY: eval for dvt COMPARISONS: None currently available. FINDINGS: RIGHT extremity: There is normal grayscale appearance and compressibility. Normal phasic pulsed Doppler and normal col or Doppler flow are visualized. The interrogated vessels show normal augmentation. LEFT extremity: There is normal grayscale appearance and compressibility. Normal phasic pulsed Doppler and normal col or Doppler flow are visualized. The interrogated vessels show normal augmentation. IMPRESSION: * No evidence for DVT. This document is electronically signed by Hitesh Gasca MD., September 12 2018 11:09:30 AM ET
[2018-09-12 12:57] LABS: Basophils % (Manual) 0 % (0.0-1.8); Eosinophils % (Manual) 0 % (0.0-4.3); Large Platelets Rare; Platelet Clumps Few; Platelet Estimate Consistent w Auto; RBC Morphology Normal; Total Cells Counted 100
--- NOTE | 2018-09-12 15:39 | Event Note ---
Date: 09/12/18 Patient seen and examined. Family/sister was at the bedside patient does well whenever she goes to rehabilitation but declines following the cessation of rehabilitation. She has not had any fall recently. She is chronically on prednisone. She reports improvement today we'll continue current management. Patient understands the need to have adequate follow-up. I think this patient will benefit from an outpatient orthopedic and rheumatologic evaluations. No carotid evidence of gastroenteritis this time. Rhabdomyolysis and renal function appears to be improving. We'll await physical therapy evaluation and treatment of possible discharge in a day or 2
[2018-09-12] MEDS ORDERED: PEPCID PO SCH (22:00)
[2018-09-13] MEDS: APRESOLINE PO SCH ×2 (03:16→11:08)
[2018-09-13 06:36] LABS: Hematocrit 39.8 % (30.3-42.9); Hemoglobin 12.7 gm/dl (10.1-14.3); Mean Corpuscular HGB Conc 32 % (30-34); Mean Corpuscular Volume 87 fl (79-97); Platelet Count 421 K/mm3 (140-440); Red Blood Count 4.55 M/mm3 (3.65-5.03); Red Cell Distribution Width 15.2 % (13.2-15.2)
[2018-09-13 07:01] LABS: Albumin 2.6 g/dL (3.9-5)
[2018-09-13 07:24] LABS: Calcium 9.9 mg/dL (8.4-10.2)
[2018-09-13] MEDS: NACL 0.9% 1000 ML 1,000 ML IV SCH (11:08)
[2018-09-13] MEDS: THALITONE PO SCH (11:09)
[2018-09-13] MEDS: TENORMIN PO SCH (11:10)
[2018-09-13] MEDS: LOVENOX SUB-Q SCH (11:10)
[2018-09-13] MEDS: DELTASONE PO SCH (11:14)
[2018-09-13] MEDS: SODIUM CHLORIDE FLUSH SYRINGE 10 ML IV SCH (11:27)
[2018-09-13 13:46] VITALS: BP 148/70
--- NOTE | 2018-09-13 14:10 | Discharge Summary ---
Providers - Providers Date of Admission: 09/12/18 00:57 Date of discharge: 09/13/18 Attending physician: ENIO MUNSON 09/12/18 01:14 Physical Therapy Evaluation and Treat [CONS] Routine Comment: Reason For Exam: ftt 09/12/18 15:36 Occupational Therapy Evaluate and Treat [CONS] Routine Comment: Reason For Exam: ataxia Primary care physician: MAC SPENCER Hospitalization Condition: Stable Hospital course: Patient is a 77-year-old woman with a history of hypertension, GERD, chronic disease, gout, arthritis comes emergency room complaining of pain all over, especially in the knees, shoulder and her back, left leg. Rhabdomyolysis with myalgia Failure to thrive Acute renal insufficiency, vasomotor nephropathy, poa Leukocytosis, no sign of infection hypertension, GERD AOCD h/o gout h/o arthritis morbid obese bmi 48.9 Severe malnutrition, poa Hyponatremia, dehydration, poa Disposition: [place]-01 TO HOME OR SELFCARE Time spent for discharge: 36 minutes Core Measure Documentation - Palliative Care Palliative Care/ Comfort Measures: Not Applicable - Core Measures Any of the following diagnoses?: none - VTE Discharge Requirements Deep Vein Thrombosis/Pulmonary Embolism Present on Admission: No Has pt received <5 days of overlap therapy or INR<2.0: No Anticoagulant overlap therapy prescribed at discharge: No Contraindication No Overlap Therapy order at DC: Not Indicated Exam - Physical Exam Narrative exam: Gen: WDWN, NAD, Awake, Alert, Orientated HEENT: NCAT, EOMI, PERRL, OP Clear Neck: supple, no adenopathy, no thyromegaly, no JVD CVS/Heart: RRR, normal S1S2, pulses present bilaterally Chest/Lungs: CTA B, Symmetrical chest expansion, good air entry bilaterally GI/Abdomen: soft, NTND, good bowel sounds, no guarding or rebound /Bladder: no suprapubic tenderness, no CVA or paraspinal tenderness Extermity/Skin: no c/c/e, no obvious rash MSK: FROM x 4 Neuro: CN 2-12 grossly intact, no new focal deficits Psych: calm - Constitutional Vitals: Temp Pulse Resp BP Pulse Ox 98.1 F 73 20 148/70 97 09/13/18 13:20 09/13/18 13:20 09/13/18 13:20 09/13/18 13:20 09/13/18 13:20 Plan Activity: other (no strenous activity) Diet: low salt Follow up with: MAC SPENCER MD [Primary Care Provider] - 3-5 Days
== END 2018-09-13 17:40 | disposition home health service (06) | DRG 682 ==
LOC: ED 20:35 → 2B-ACE 09-12 00:57
PROVIDERS: ADMIT Internal Medicine; ATTEND Internal Medicine
DX: N17.0 Acute kidney failure with tubular necrosis (principal); E43 Unspecified severe protein-calorie malnutrition; M62.82 Rhabdomyolysis; Z68.42 Body mass index [BMI] 45.0-49.9, adult; E87.1 Hypo-osmolality and hyponatremia; I10 Essential (primary) hypertension; K21.9 Gastro-esophageal reflux disease without esophagitis; M10.9 Gout, unspecified; M19.90 Unspecified osteoarthritis, unspecified site; D72.829 Elevated white blood cell count, unspecified; D63.8 Anemia in other chronic diseases classified elsewhere; E66.01 Morbid (severe) obesity due to excess calories; G89.29 Other chronic pain; E86.0 Dehydration; Z90.49 Acquired absence of other specified parts of digestive tract; Z90.710 Acquired absence of both cervix and uterus; Z82.49 Family history of ischemic heart disease and other diseases of the circulatory system; Z79.899 Other long term (current) drug therapy
CPT/HCPCS: 36415; 71045; 80048; 80053; 81001; 82550; 82553; 84443; 85007; 85025; 85027; 86618; 87116; 93970; G0378; J1100; J1650; J2270; J2405; J7030; J7512

== ENCOUNTER 2019-01-01 08:03 | Inpatient (IN) | payer MEDICARE ==
[2019-01-01] MEDS ORDERED: DECADRON IM ONE (08:30)
[2019-01-01] MEDS ORDERED: MORPHINE IM ONE (08:31)
[2019-01-01] MEDS ORDERED: ZOFRAN ODT PO ONE (08:31)
--- NOTE | 2019-01-01 08:39 | Emergency Department Report ---
ED General Adult HPI - General Stated complaint: KNEE PAIN Time Seen by Provider: 01/01/19 08:20 - History of Present Illness Initial comments: This is a recalcitrant 78 year old lady who has been admitted here before for polyarticular gout/osteoarthritis. She states that she is already on medicine for gout and it is not helping. She has pain in multiple joints. She is in pain management as well. She does not want to try a new medicine or acute med icine at this time in particular as she thinks she is already on medicine for these problems in the past. I have explained to her that different medicine would be appropriate for an acute flareup of gout and perhaps osteoarthritis as well. She states she wants me to draw fluid out of her joints. She is very clear that she has had this problem before affecting multiple joints to include her shoulders and hips and knees. She's had no injury. She states the area where is most painful is her left knee. Patient resides at home. I spoke with her daughter. She states that the patient is not cooperative with any active at home in general. She is not currently getting physical therapy or occupational therapy. She has previously been in rehabilitation. I believe the family would be likely interested in admission to the hospital at this juncture. I have explained that we cannot do that just directly without medical screening and evaluation artery her response to appropriate medications. -: days(s) Location: upper extremity, lower extremity Radiation: non-radiation Consistency: intermittent Improves with: none Worsens with: movement Associated Symptoms: denies other symptoms - Related Data Home Medications Medication Instructions Recorded Confirmed Last Taken Atenolol/Chlorthalidone [Tenoretic 1 tab PO QDAY 07/06/18 07/06/18 Unknown 50-25] Febuxostat [Uloric] 40 mg PO DAILY 07/06/18 07/06/18 Unknown Previous Rx's Medication Instructions Recorded Last Taken Type Colchicine 0.6 mg PO DAILY #60 capsule 02/05/17 Unknown Rx Docusate Sodium [Colace CAP] 100 mg PO BID PRN #30 capsule 07/10/18 Unknown Rx predniSONE [Deltasone] 10 mg PO DAILY #5 tablet 07/10/18 Unknown Rx Acetaminophen [Acetaminophen TAB] 650 mg PO Q4H PRN #15 tablet 09/13/18 Unknown Rx Famotidine [Pepcid] 40 mg PO QHS #30 09/13/18 Unknown Rx Hydralazine HCl 50 mg PO BID #60 09/13/18 Unknown Rx Allergies Allergy/AdvReac Type Severity Reaction Status Date / Time turkey Allergy Intermediate Hives Verified 07/07/18 19:18 tramadol AdvReac Intermediate Dizziness Verified 07/10/18 03:08 naproxen AdvReac Mild Dizziness Verified 07/07/18 19:19 ED Review of Systems ROS: Stated complaint: KNEE PAIN Other details as noted in HPI Constitutional: denies: chills, fever Eyes: denies: eye pain, eye discharge, vision change ENT: denies: ear pain, throat pain Respiratory: denies: cough, shortness of breath, wheezing Cardiovascular: denies: chest pain, palpitations Endocrine: no symptoms reported Gastrointestinal: denies: abdominal pain, nausea, diarrhea Genitourinary: denies: urgency, dysuria, discharge Musculoskeletal: joint swelling, arthralgia. 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 Left knee swelling - Surgical History Hx Cholecystectomy: Yes Additional Surgical History: hysterectomy - Social History Smoking Status: Unknown if ever smoked Substance Use Type: None - Medications Home Medications: Home Medications Medication Instructions Recorded Confirmed Last Taken Type Colchicine 0.6 mg PO DAILY #60 capsule 02/05/17 07/06/18 Unknown Rx Atenolol/Chlorthalidone [Tenoretic 1 tab PO QDAY 07/06/18 07/06/18 Unknown History 50-25] Febuxostat [Uloric] 40 mg PO DAILY 07/06/18 07/06/18 Unknown History Docusate Sodium [Colace CAP] 100 mg PO BID PRN #30 capsule 07/10/18 Unknown Rx predniSONE [Deltasone] 10 mg PO DAILY #5 tablet 07/10/18 Unknown Rx Acetaminophen [Acetaminophen TAB] 650 mg PO Q4H PRN #15 tablet 09/13/18 Unknown Rx Famotidine [Pepcid] 40 mg PO QHS #30 09/13/18 07/06/18 Unknown Rx Hydralazine HCl 50 mg PO BID #60 04/23/19 02/13/19 Unknown Rx ED Physical Exam - General General appearance: alert, in no apparent distress - Head Head exam: Present: atraumatic, normocephalic - Eye Eye exam: Present: normal appearance - ENT ENT exam: Present: mucous membranes moist - Neck Neck exam: Present: normal inspection - Respiratory Respiratory exam: Present: normal lung sounds bilaterally. Absent: respiratory distress - Cardiovascular Cardiovascular Exam: Present: regular rate, normal rhythm. Absent: systolic murmur, diastolic murmur, rubs, gallop - GI/Abdominal GI/Abdominal exam: Present: soft, normal bowel sounds. Absent: distended, tenderness, guarding, rebound - Extremities Exam Extremities exam: Present: other (left knee deformity. Painful range of motion. No significant warmth. Trace effusion only. Range of motion of both hips and shoulders are without pain. Right knee is more mobile than left.) - Back Exam Back exam: Present: normal inspection - Neurological Exam Neurological exam: Present: alert, oriented X3, CN II-XII intact. Absent: motor sensory deficit - Psychiatric Psychiatric exam: Present: agitated (mildly), flat affect - Skin Skin exam: Present: warm, dry, intact, normal color. Absent: rash ED Course Vital Signs 01/01/19 01/01/19 01/01/19 08:47 10:52 12:01 Temperature 98.5 F Pulse Rate 74 62 85 Respiratory 18 17 18 Rate Blood Pressure 124/66 Blood Pressure 134/65 136/69 [Right] O2 Sat by Pulse 100 100 100 Oximetry - Reevaluation(s) Reevaluation #1: Discussed several times with case management. They've interviewed the family. Patient has had prior rehabilitation admissions. Case management advised admit the patient for physical therapy evaluation and possible placement. 01/01/19 13:08 ED Medical Decision Making - Lab Data Result diagrams: 01/01/19 08:37 01/01/19 08:37 Laboratory Results - last 24 hr 01/01/19 01/01/19 01/01/19 08:37 08:37 08:37 WBC 12.6 H RBC 3.98 Hgb 10.5 Hct 33.0 MCV 83 MCH 26 L MCHC 32 RDW 17.4 H Plt Count 429 Lymph % (Auto) 12.4 L [place] % (Auto) 11.1 H Eos % (Auto) 0.8 Baso % (Auto) 0.6 Lymph # 1.6 [place] # 1.4 H Eos # 0.1 Baso # 0.1 Seg Neutrophils % 75.1 H Seg Neutrophils # 9.5 H Sodium 139 Potassium 3.6 Chloride 97.8 L Carbon Dioxide 27 Anion Gap 18 BUN 40 H Creatinine 1.6 H Estimated GFR 38 BUN/Creatinine Ratio 25 Glucose 105 H Uric Acid 5.0 Calcium 10.2 Laboratory Results - last 24 hr 01/01/19 01/01/19 01/01/19 08:37 08:37 08:37 WBC 12.6 H RBC 3.98 Hgb 10.5 Hct 33.0 MCV 83 MCH 26 L MCHC 32 RDW 17.4 H Plt Count 429 Lymph % (Auto) 12.4 L [place] % (Auto) 11.1 H Eos % (Auto) 0.8 Baso % (Auto) 0.6 Lymph # 1.6 [place] # 1.4 H Eos # 0.1 Baso # 0.1 Seg Neutrophils % 75.1 H Seg Neutrophils # 9.5 H Sodium 139 Potassium 3.6 Chloride 97.8 L Carbon Dioxide 27 Anion Gap 18 BUN 40 H Creatinine 1.6 H Estimated GFR 38 BUN/Creatinine Ratio 25 Glucose 105 H Uric Acid 5.0 Calcium 10.2 Total Creatine Kinase CK-MB (CK-2) CK-MB (CK-2) Rel Index 01/01/19 09:22 WBC RBC Hgb Hct MCV MCH MCHC RDW Plt Count Lymph % (Auto) [place] % (Auto) Eos % (Auto) Baso % (Auto) Lymph # [place] # Eos # Baso # Seg Neutrophils % Seg Neutrophils # Sodium Potassium Chloride Carbon Dioxide Anion Gap BUN Creatinine Estimated GFR BUN/Creatinine Ratio Glucose Uric Acid Calcium Total Creatine Kinase 33 CK-MB (CK-2) < 1.0 CK-MB (CK-2) Rel Index 3.0 - Radiology Data Radiology results: report reviewed FINDINGS: BONES / JOINT(S): No acute fracture or subluxation. Moderate tricompartment degenerative arthrosis especially in the medial compartment. No significant joint effusion. SOFT TISSUES: Mild anterolateral soft tissue swelling. ADDITIONAL FINDINGS: None. Critical care attestation.: If time is entered above; I have spent that time in minutes in the direct care of this critically ill patient, excluding procedure time. ED Disposition Clinical Impression: Renal insufficiency, Acute gouty arthritis, Unable to ambulate Disposition: OP ADMIT IP TO THIS HOSP Is pt being admited?: Yes Does the pt Need Aspirin: No Condition: Stable Referrals: PHIL MARX MD [Primary Care Provider] - 3-5 Days Time of Disposition: 13:09
[2019-01-01 08:49] LABS: Basophils # (Auto) 0.1 K/mm3 (0.0-0.1); Basophils % (Auto) 0.6 % (0.0-1.8); Eosinophils # (Auto) 0.1 K/mm3 (0.0-0.4); Eosinophils % (Auto) 0.8 % (0.0-4.3); Hemoglobin 10.5 gm/dl (10.1-14.3); Lymphocytes # (Auto) 1.6 K/mm3 (1.2-5.4); Lymphocytes % (Auto) 12.4 % (13.4-35.0); Mean Corpuscular HGB Conc 32 % (30-34); Mean Corpuscular Volume 83 fl (79-97); Monocytes # (Auto) 1.4 K/mm3 (0.0-0.8); Monocytes % (Auto) 11.1 % (0.0-7.3); Platelet Count 429 K/mm3 (140-440); Red Blood Count 3.98 M/mm3 (3.65-5.03); Red Cell Distribution Width 17.4 % (13.2-15.2)
[2019-01-01 09:04] LABS: Calcium 10.2 mg/dL (8.4-10.2)
--- NOTE | 2019-01-01 09:24 | XRay Report ---
LEFT KNEE 2 VIEW(S) INDICATION / CLINICAL INFORMATION: pain swelling gout COMPARISON: Radiograph stated 09/11/18 FINDINGS: BONES / JOINT(S): No acute fracture or subluxation. Moderate tricompartment degenerative arthrosis es pecially in the medial compartment. No significant joint effusion. SOFT TISSUES: Mild anterolateral soft tissue swelling. ADDITIONAL FINDINGS: None. Signer Name: Jareth Garcia MD Signed: 01/01/2019 9:20 AM Workstation Name: [id number]
[2019-01-01 09:36] LABS: Creatine Kinase MB < 1.0 ng/mL (0.0-4.0)
--- NOTE | 2019-01-01 13:11 | History and Physical Report ---
History of Present Illness Chief complaint: Im just tired History of present illness: 78 Y Female with MO, HTN, GERD, Gout, OA presents to ED for evaluation. Pt states that she has experienced generalized weakness over the past 1 week, as well as pain in her left knee, lower back with worsening symptoms over the past 2 days. Pt states that she is unable to bear weight on her left knee as well as decreased oral intake. Pt states that the pain is 8/10, constant, worsened with weight bearing. EMS notified, and upon arrival the patient was found to be in distress. Pt seen and evaluated in ED and found to have AYALA, SIRS, and well as pain secondary to Osteoarthritis. Pt denies fever, chills, CP, Palpitations, NVD, Syncope, leg swelling, calf swelling, productive cough, recent ill contacts, hemoptysis, trauma, or recent falls. Pt acknowledges depressed mood due to chronic pain. Pt sister is at bedside during exam and interview. Pt sister is at bedside, and reports decreased ambulation, and decreased ability to conduct activities of daily living independently. Pt has increased bedbound status, and is currently nonambulatory. Prior admission on 09/12/18 reviewed. All listed medication reconciled at time of admission. 60 minutes additional time conducted for discussion of advanced care planning. Pt sister request Case Management intervention for SHELTER/SNF placement. Past History Past Medical History: arthritis, GERD, hypertension, other (MO, Gout) Past Surgical History: cholecystectomy, hysterectomy Social history: . denies: smoking, alcohol abuse, prescription drug abuse Family history: diabetes, hypertension Medications and Allergies Allergies Allergy/AdvReac Type Severity Reaction Status Date / Time turkey Allergy Intermediate Hives Verified 07/07/18 19:18 tramadol AdvReac Intermediate Dizziness Verified 07/10/18 03:08 naproxen AdvReac Mild Dizziness Verified 07/07/18 19:19 Home Medications Medication Instructions Recorded Confirmed Last Taken Type Colchicine 0.6 mg PO DAILY #60 capsule 02/05/17 07/06/18 Unknown Rx Atenolol/Chlorthalidone [Tenoretic 1 tab PO QDAY 07/06/18 07/06/18 Unknown History 50-25] Febuxostat [Uloric] 40 mg PO DAILY 07/06/18 07/06/18 Unknown History Docusate Sodium [Colace CAP] 100 mg PO BID PRN #30 capsule 07/10/18 Unknown Rx predniSONE [Deltasone] 10 mg PO DAILY #5 tablet 07/10/18 Unknown Rx Acetaminophen [Acetaminophen TAB] 650 mg PO Q4H PRN #15 tablet 09/13/18 Unknown Rx Famotidine [Pepcid] 40 mg PO QHS #30 09/13/18 07/06/18 Unknown Rx Hydralazine HCl 50 mg PO BID #60 09/13/18 07/06/18 Unknown Rx Review of Systems Constitutional: weakness, no weight loss, no weight gain, no fever, no chills Ears, nose, mouth and throat: no ear pain, no ear discharge, no tinnitis, no decreased hearing, no nose pain, no nasal congestion, no nasal discharge Breasts: no change in shape, no swelling, no mass Cardiovascular: no orthopnea, no palpitations Respiratory: no cough, no cough with sputum, no excessive sputum Gastrointestinal: no nausea, no vomiting, no diarrhea, no constipation, no change in bowel habits Genitourinary Female: no pelvic pain, no flank pain, no menorrhagia, no dysuria, no urinary frequency, no urgency Rectal: no pain, no incontinence, no bleeding Musculoskeletal: low back pain, gait dysfunction, arthritis, no neck stiffness, no neck pain, no shooting arm pain, no muscle cramps, no myalgias Integumentary: no rash, no pruritis, no redness, no sores, no wounds, no jaundice Neurological: no paralysis, no weakness, no parathesias, no numbness, no seizures, no syncope, no tremors Psychiatric: depression, hopelessness, anhedonia, no anxiety, no memory loss, no insomnia, no hypersomnia, no change in appetite, no change in libido, no suicidal ideation, no disorientation, no hallucinations Endocrine: no cold intolerance, no heat intolerance, no polyphagia, no excessive thirst, no polydipsia, no polyuria, no nocturia, no excessive sweating Hematologic/Lymphatic: no easy bruising, no easy bleeding, no lymphedema Allergic/Immunologic: no urticaria, no allergic rhinitis, no anaphylaxis Exam - Constitutional Vitals: Temp Pulse Resp BP Pulse Ox 98.5 F 85 18 136/69 100 01/01/19 08:47 01/01/19 12:01 01/01/19 12:01 01/01/19 12:01 01/01/19 12:01 General appearance: Present: mild distress, obese - EENT Eyes: Present: PERRL ENT: hearing intact, clear oral mucosa - Neck Neck: Present: supple, normal ROM - Respiratory Respiratory effort: normal Respiratory: bilateral: CTA - Cardiovascular Heart Sounds: Present: S1 & S2. Absent: rub, click - Extremities Extremities: pulses symmetrical, No edema Extremity abnormal: other (Left knee pain) Peripheral Pulses: within normal limits - Abdominal General gastrointestinal: Present: soft, non-tender, non-distended, normal bowel sounds Female genitourinary: Present: normal - Integumentary Integumentary: Present: clear, warm, dry - Musculoskeletal Musculoskeletal: generalized weakness - Psychiatric Psychiatric: appropriate mood/affect, intact judgment & insight, agitated, depressed - Neurologic Neurologic: CNII-XII intact, moves all extremities, no gait normal Results - Labs CBC & Chem 7: 01/01/19 08:37 01/01/19 08:37 Labs: Abnormal lab results 01/01/19 01/01/19 Range/Units 08:37 08:37 WBC 12.6 H (4.5-11.0) K/mm3 MCH 26 L (28-32) pg RDW 17.4 H (13.2-15.2) % Lymph % (Auto) 12.4 L (13.4-35.0) % [place] % (Auto) 11.1 H (0.0-7.3) % [place] # 1.4 H (0.0-0.8) K/mm3 Seg Neutrophils % 75.1 H (40.0-70.0) % Seg Neutrophils # 9.5 H (1.8-7.7) K/mm3 Chloride 97.8 L (98-107) mmol/L BUN 40 H (7-17) mg/dL Creatinine 1.6 H (0.7-1.2) mg/dL Glucose 105 H (65-100) mg/dL Assessment and Plan - Patient Problems (1) AYALA (acute kidney injury) Current Visit: Yes Status: Acute Plan to address problem: IVF resuscitation therapy, monitor uop q shift, repeat bmp to monitor serum creatnine, strict I/O, avoid nephrotoxic agents. (2) SIRS (systemic inflammatory response syndrome) Current Visit: Yes Status: Acute Plan to address problem: IV antibiotic therapy, CBC, CMP, Urinalysis, Chest X ray, (3) Debility Current Visit: Yes Status: Acute Plan to address problem: PT consulted, supportive care. (4) Dementia Current Visit: Yes Status: Acute Qualifiers: Dementia behavioral disturbance: without behavioral disturbance Plan to address problem: CT Head, neuro checks, fall precautions, supportive care. (5) Depression Current Visit: Yes Status: Acute Qualifiers: Major depression recurrence: recurrent Active/Remission status: currently active Plan to address problem: Mental health consulted, (6) UTI (urinary tract infection) Current Visit: Yes Status: Acute Qualifiers: Encounter type: initial encounter Plan to address problem: Urinalysis, CBC, CMP, empiric antibiotic therapy (7) DVT prophylaxis Current Visit: No Status: Acute Plan to address problem: SCD to BLE while in bed, prophylactic heparin
[2019-01-01] MEDS ORDERED: TYLENOL PO PRN ×2 (13:23→13:26)
[2019-01-01] MEDS ORDERED: SODIUM CHLORIDE FLUSH SYRINGE 10 ML IV PRN (13:23)
[2019-01-01] MEDS ORDERED: ZOFRAN IV PRN (13:23)
[2019-01-01] MEDS ORDERED: COLCHICINE PO SCH (14:00)
[2019-01-01] MEDS: APRESOLINE PO SCH ×2 (17:20→22:44)
[2019-01-01] MEDS: TENORMIN PO SCH (17:20)
[2019-01-01] MEDS: THALITONE PO SCH (17:20)
[2019-01-01] MEDS ORDERED: PERCOCET 5/325 PO PRN (19:03)
[2019-01-01] MEDS ORDERED: NON-FORMULARY (Famotidine [Pepcid] 40 MG) PO SCH (22:00)
[2019-01-01] MEDS: PEPCID PO SCH (22:44)
[2019-01-01] MEDS: SODIUM CHLORIDE FLUSH SYRINGE 10 ML IV SCH (22:50)
--- NOTE | 2019-01-02 00:14 | Cat Scan Report ---
CT head without contrast HISTORY: confusion. Acute altered mental status TECHNIQUE: Axial imaging performed from the skull apex through the skull base without the use of con trast. All CT scans at this location are performed using CT dose reduction for ALARA by means of aut omated exposure control. COMPARISON: CT head from 07/06/2018 FINDINGS: Parenchyma: No acute intracranial hemorrhage or parenchymal abnormality. Ventricles: There is mild diffuse brain atrophy with commensurate ventricular enlargement which is l ikely age appropriate. Soft tissues: Soft tissues including the orbits appear normal. Bones: No acute osseous abnormality. Sinuses: Sinuses and mastoid air cells are clear. IMPRESSION: No acute abnormality. Signer Name: Shay Elise MD Signed: 01/02/2019 12:10 AM Workstation Name: [id number]
[2019-01-02 05:18] LABS: Basophils # (Auto) 0.1 K/mm3 (0.0-0.1); Basophils % (Auto) 0.7 % (0.0-1.8); Eosinophils % (Auto) 0.1 % (0.0-4.3); Hematocrit 35.8 % (30.3-42.9); Hemoglobin 11.2 gm/dl (10.1-14.3); Lymphocytes # (Auto) 1.4 K/mm3 (1.2-5.4); Lymphocytes % (Auto) 8.8 % (13.4-35.0); Mean Corpuscular HGB Conc 31 % (30-34); Mean Corpuscular Volume 83 fl (79-97); Monocytes # (Auto) 1.4 K/mm3 (0.0-0.8); Monocytes % (Auto) 8.8 % (0.0-7.3); Platelet Count 488 K/mm3 (140-440); Red Cell Distribution Width 17.5 % (13.2-15.2)
[2019-01-02 05:36] LABS: Albumin 3.4 g/dL (3.9-5); Calcium 10.2 mg/dL (8.4-10.2)
[2019-01-02 06:11] LABS: Bilirubin,Urine NEG (Negative); Blood,Urine NEG (Negative); Color,Urine Yellow (Yellow); Mucus,Urine FEW /HPF; Protein,Urine <15 mg/dL mg/dL (Negative); RBC,Urine < 1.0 /HPF (0.0-6.0)
[2019-01-02] MEDS ORDERED: NON-FORMULARY (Atenolol/Chlorthalidone [Tenoretic 50-25] 1 TAB) PO SCH (10:00)
[2019-01-02] MEDS: ROCEPHIN/NS 1 GM/50 ML 1 GM/50 ML BAG IV SCH ×2 (10:25)
[2019-01-02] MEDS: SODIUM CHLORIDE FLUSH SYRINGE 10 ML IV SCH ×2 (10:26→21:48)
[2019-01-02] MEDS: DELTASONE PO SCH ×2 (10:26→23:52)
[2019-01-02] MEDS: TENORMIN PO SCH (10:30)
[2019-01-02] MEDS: APRESOLINE PO SCH ×3 (10:40→19:51)
[2019-01-02] MEDS: THALITONE PO SCH (11:00)
[2019-01-02] MEDS: TYLENOL #3 PO PRN ×2 (15:47→21:45)
--- NOTE | 2019-01-02 15:55 | Progress Note ---
Assessment and Plan Assessment and plan: Patient is a 78 Y Female with MO, HTN, GERD, Gout, OA presents to ED for evaluation. Pt states that she has experienced generalized weakness over the past 1 week, as well as pain in her left knee, lower back with worsening symptoms over the past 2 days. Pt states that she is unable to bear weight on her left knee as well as decreased oral intake. Pt states that the pain is 8/10, constant, worsened with weight bearing. EMS notified, and upon arrival the patient was found to be in distress. Although information from admission in the ED physician. Family informed. The patient has been mostly nonambulatory in the last few weeks. She did about sometime in August received injections to her back with improvement in her symptoms and was active but subsequently in the last few weeks this has worsened with a flareup. There is a feeling that there is lack of information lasted how recurrent this condition could be. 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 Pt sister also placed a request Case Management intervention for CORRECTION/SNF placement. She also that the patient is not cooperative with any active at home in general. She is not currently getting physical therapy or occupational therapy. She has previously been in rehabilitation. SIRS without organ dysfunction Left Knew osteoarthritis ?Gout Chronic Kidney injury stage 3 Chronic Debility secondary to Gout/Osteoarthritis Dementia Depression HTN Plan continue supportive care Obtain orthopedic consult Discussed with case management about possible placement. CT head reviewed and negative. X-ray of the knee revealed shows mild swelling in the mid anterior region. Physical therapy evaluate and treat Pain control Continue current home medications. Avoid nephrotoxic medications. DVT and GI prophylaxis Plan of care discussed with family History Interval history: Patient seen and examined this morning denies any further. Reports left knee swelling is improving. Hospitalist Physical - Physical exam Narrative exam: VITAL SIGNS: Reviewed. GENERAL: The patient appears normally developed, obese. Vital signs as documented. HEAD: No signs of head trauma. EYES: Pupils are equal. Extraocular motions intact. EARS: Hearing grossly intact. MOUTH: Oropharynx is normal. NECK: No adenopathy, no JVD. CHEST: Chest with clear breath sounds bilaterally. No wheezes, rales, or rhonchi. CARDIAC: Regular rate and rhythm. S1 and S2, without murmurs, gallops, or rubs. VASCULAR: No Edema. Peripheral pulses normal and equal in all extremities. ABDOMEN: Soft, non tender and non distended. No rebound or guarding, and no masses palpated. Bowel Sounds normal. MUSCULOSKELETAL: Good range of motion of all major joints. Extremities without clubbing, cyanosis or edema. NEUROLOGIC EXAM: Alert and oriented x 3 No focal sensory or strength deficits. Speech normal. Follows commands. PSYCHIATRIC: Mood normal. SKIN: detial exam as documented in skin assessment - Constitutional Vitals: Temp Pulse Resp BP Pulse Ox 98.0 F 66 20 137/73 97 01/02/19 12:51 01/02/19 13:29 01/02/19 12:51 01/02/19 13:29 01/02/19 13:29 General appearance: Present: mild distress, obese Results - Labs CBC & Chem 7: 01/02/19 04:24 01/02/19 04:24 Labs: Laboratory Last Values WBC 16.1 K/mm3 (4.5-11.0) H 01/02/19 04:24 RBC 4.30 M/mm3 (3.65-5.03) 01/02/19 04:24 Hgb 11.2 gm/dl (10.1-14.3) 01/02/19 04:24 Hct 35.8 % (30.3-42.9) 01/02/19 04:24 MCV 83 fl (79-97) 01/02/19 04:24 MCH 26 pg (28-32) L 01/02/19 04:24 MCHC 31 % (30-34) 01/02/19 04:24 RDW 17.5 % (13.2-15.2) H 01/02/19 04:24 Plt Count 488 K/mm3 (140-440) H 01/02/19 04:24 Lymph % (Auto) 8.8 % (13.4-35.0) L 01/02/19 04:24 [place] % (Auto) 8.8 % (0.0-7.3) H 01/02/19 04:24 Eos % (Auto) 0.1 % (0.0-4.3) 01/02/19 04:24 Baso % (Auto) 0.7 % (0.0-1.8) 01/02/19 04:24 Lymph # 1.4 K/mm3 (1.2-5.4) 01/02/19 04:24 [place] # 1.4 K/mm3 (0.0-0.8) H 01/02/19 04:24 Eos # 0.0 K/mm3 (0.0-0.4) 01/02/19 04:24 Baso # 0.1 K/mm3 (0.0-0.1) 01/02/19 04:24 Seg Neutrophils % 81.6 % (40.0-70.0) H 01/02/19 04:24 Seg Neutrophils # 13.1 K/mm3 (1.8-7.7) H 01/02/19 04:24 Sodium 142 mmol/L (137-145) 01/02/19 04:24 Potassium 4.1 mmol/L (3.6-5.0) 01/02/19 04:24 Chloride 99.7 mmol/L (98-107) 01/02/19 04:24 Carbon Dioxide 27 mmol/L (22-30) 01/02/19 04:24 19 mmol/L 01/02/19 04:24 BUN 44 mg/dL (7-17) H 01/02/19 04:24 1.6 mg/dL (0.7-1.2) H 01/02/19 04:24 Estimated GFR 38 ml/min 01/02/19 04:24 28 % 01/02/19 04:24 Glucose 113 mg/dL (65-100) H 01/02/19 04:24 5.0 mg/dL (3.5-7.6) 01/01/19 08:37 Calcium 10.2 mg/dL (8.4-10.2) 01/02/19 04:24 0.60 mg/dL (0.1-1.2) 01/02/19 04:24 AST 28 units/L (5-40) 01/02/19 04:24 ALT 27 units/L (7-56) 01/02/19 04:24 78 units/L (35-129) 01/02/19 04:24 33 units/L (30-135) 01/01/19 09:22 CK-MB (CK-2) < 1.0 ng/mL (0.0-4.0) 01/01/19 09:22 CK-MB (CK-2) Rel Index 3.0 (0-4) 01/01/19 09:22 7.1 g/dL (6.3-8.2) 01/02/19 04:24 3.4 g/dL (3.9-5) L 01/02/19 04:24 0.9 % 01/02/19 04:24 Yellow (Yellow) 01/02/19 05:10 Slightly-cloudy (Clear) 01/02/19 05:10 5.0 (5.0-7.0) 01/02/19 05:10 Ur Specific [place] 1.016 (1.003-1.030) 01/02/19 05:10 <15 mg/dl mg/dL (Negative) 01/02/19 05:10 Neg mg/dL (Negative) 01/02/19 05:10 Neg mg/dL (Negative) 01/02/19 05:10 Neg (Negative) 01/02/19 05:10 Neg (Negative) 01/02/19 05:10 Neg (Negative) 01/02/19 05:10 2.0 mg/dL (<2.0) 01/02/19 05:10 Ur Leukocyte Esterase Neg (Negative) 01/02/19 05:10 1.0 /HPF (0.0-6.0) 01/02/19 05:10 < 1.0 /HPF (0.0-6.0) 01/02/19 05:10 U Epithel Cells (Auto) 5.0 /HPF (0-13.0) 01/02/19 05:10 Few /HPF 01/02/19 05:10 Active Medications - Current Medications Current Medications: Generic Name Dose Route Start Last Admin Trade Name Freq PRN Reason Stop Dose Admin Acetaminophen 650 mg 01/01/19 13:26 Tylenol PO Q4H PRN Pain MILD(1-3)/Fever >100.5/MCKEON Acetaminophen/Codeine Phosphate 1 tab 01/02/19 15:08 01/02/19 15:47 Tylenol #3 PO 1 tab Q6H PRN Administration Pain, Moderate (4-6) Atenolol 50 mg 01/01/19 14:00 01/02/19 10:30 Tenormin PO 50 mg QDAY [facility] Administration Chlorthalidone 25 mg 01/01/19 14:00 01/02/19 11:00 Thalitone PO 25 mg QDAY [facility] Administration Docusate Sodium 100 mg 01/01/19 13:26 Colace PO BID PRN Constipation Famotidine 20 mg 01/01/19 22:00 01/01/19 22:44 Pepcid PO 20 mg QHS [facility] Administration Hydralazine HCl 25 mg 01/02/19 12:00 01/02/19 12:14 Apresoline PO 25 mg DAILY [facility] Administration Ceftriaxone Sodium 1 gm in 50 mls @ 100 mls/hr 01/01/19 20:06 01/02/19 10:25 Rocephin/Ns 1 Gm/50 Ml IV 100 mls/hr Q24HR [facility] Administration Protocol Miscellaneous Medication 40 mg 01/02/19 10:00 Febuxostat [Uloric] PO DAILY [facility] Ondansetron HCl 4 mg 01/01/19 13:23 Zofran IV Q8H PRN Nausea And Vomiting Prednisone 10 mg 01/01/19 14:00 01/02/19 10:26 Deltasone PO 10 mg DAILY [facility] Administration Sodium Chloride 10 ml 01/01/19 22:00 01/02/19 10:26 Sodium Chloride Flush Syringe 10 Ml IV 10 ml BID [facility] Administration Sodium Chloride 10 ml 01/01/19 13:23 Sodium Chloride Flush Syringe 10 Ml IV PRN PRN LINE FLUSH
--- NOTE | 2019-01-02 17:11 | Consultation ---
History of Present Illness - [facility] Consult date: 01/02/19 Consult reason: joint pain History of present illness: 78 Y Female with MO, HTN, GERD, Gout, OA presents to ED for evaluation. Pt states that she has experienced generalized weakness over the past 1 week, as well as pain in her left knee, lower back with worsening symptoms over the past 2 days. Pt states that she is unable to bear weight on her left knee as well as decreased oral intake. Pt states that the pain is 8/10, constant, worsened with weight bearing Past History Past Medical History: arthritis, GERD, hypertension, other (MO, Gout) Past Surgical History: cholecystectomy, hysterectomy Social history: . denies: smoking, alcohol abuse, prescription drug abuse Family history: diabetes, hypertension Medications and Allergies Allergies Allergy/AdvReac Type Severity Reaction Status Date / Time turkey Allergy Intermediate Hives Verified 07/07/18 19:18 tramadol AdvReac Intermediate Dizziness Verified 07/10/18 03:08 naproxen AdvReac Mild Dizziness Verified 07/07/18 19:19 Home Medications Medication Instructions Recorded Confirmed Last Taken Type Colchicine 0.6 mg PO DAILY #60 capsule 02/05/17 01/02/19 Unknown Rx Atenolol/Chlorthalidone [Tenoretic 1 tab PO QDAY 07/06/18 01/02/19 Unknown History 50-25] Febuxostat [Uloric] 40 mg PO DAILY 07/06/18 01/02/19 01/01/19 10:00 History Docusate Sodium [Colace CAP] 100 mg PO BID PRN #30 capsule 07/10/18 01/02/19 Unknown Rx predniSONE [Deltasone] 10 mg PO DAILY #5 tablet 07/10/18 01/02/19 Unknown Rx Acetaminophen [Acetaminophen TAB] 650 mg PO Q4H PRN #15 tablet 09/13/18 01/02/19 Unknown Rx Famotidine [Pepcid] 40 mg PO QHS #30 09/13/18 01/02/19 Unknown Rx Hydralazine HCl 50 mg PO BID #60 09/13/18 01/02/19 01/01/19 10:00 Rx Tylenol /Codeine # 3 tab 300 mg PO BID PRN 01/02/19 01/02/19 Unknown History Active Meds: Active Medications Acetaminophen (Tylenol) 650 mg PO Q4H PRN PRN Reason: Pain MILD(1-3)/Fever >100.5/MCKEON Acetaminophen/Codeine Phosphate (Tylenol #3) 1 tab PO Q6H PRN PRN Reason: Pain, Moderate (4-6) Last Admin: 01/02/19 15:47 Dose: 1 tab Documented by: Atenolol (Tenormin) 50 mg PO QDAY [facility] Last Admin: 01/02/19 10:30 Dose: 50 mg Documented by: Chlorthalidone (Thalitone) 25 mg PO QDAY [facility] Last Admin: 01/02/19 11:00 Dose: 25 mg Documented by: Docusate Sodium (Colace) 100 mg PO BID PRN PRN Reason: Constipation Famotidine (Pepcid) 20 mg PO QHS [facility] Last Admin: 01/01/19 22:44 Dose: 20 mg Documented by: Hydralazine HCl (Apresoline) 25 mg PO DAILY [facility] Last Admin: 01/02/19 12:14 Dose: 25 mg Documented by: Ceftriaxone Sodium (Rocephin/Ns 1 Gm/50 Ml) 1 gm in 50 mls @ 100 mls/hr IV Q24HR [facility]; Protocol Last Admin: 01/02/19 10:25 Dose: 100 mls/hr Documented by: Miscellaneous Medication (Febuxostat [Uloric]) 40 mg PO DAILY [facility] Ondansetron HCl (Zofran) 4 mg IV Q8H PRN PRN Reason: Nausea And Vomiting Prednisone (Deltasone) 10 mg PO DAILY [facility] Last Admin: 01/02/19 10:26 Dose: 10 mg Documented by: Sodium Chloride (Sodium Chloride Flush Syringe 10 Ml) 10 ml IV BID [facility] Last Admin: 01/02/19 10:26 Dose: 10 ml Documented by: Sodium Chloride (Sodium Chloride Flush Syringe 10 Ml) 10 ml IV PRN PRN PRN Reason: LINE FLUSH Physical Examination - Physical exam Narrative exam: Left knee - 1+ effusion, crepitus on passive ROM, tender at joint lines, no redness/erythema plain xrays - moderatedly severe DJD changes Eyes: PERRL ENT: Positive: clear oral mucosa Respiratory effort: normal Respiratory: bilateral: CTA Rhythm: regular Heart Sounds: Positive: S1 & S2 General gastrointestinal: Positive: soft, non-tender, non-distended, normal bowel sounds Integumentary: clear, warm, dry Neurologic: Positive: CNII-XII intact, moves all extremities, gait normal. Negative: focal deficits Assessment and Plan DJD left knee recommend - intra-articular depomedrol injection
[2019-01-02] MEDS ORDERED: XYLOCAINE 1% MPF 5 mL INFILTRATI ONE (17:12)
[2019-01-02] MEDS ORDERED: DEPO-Medrol INTRA-ARTI ONE (17:12)
[2019-01-02] MEDS ORDERED: BROVANA NEBU IH SCH (20:00)
[2019-01-02] MEDS ORDERED: PULMICORT IH SCH (20:00)
[2019-01-02] MEDS: PEPCID PO SCH (21:46)
[2019-01-03] MEDS: TYLENOL #3 PO PRN ×3 (05:26→22:36)
[2019-01-03] MEDS: NON-FORMULARY (Febuxostat [Uloric] 40 MG) PO SCH ×2 (07:41→09:49)
[2019-01-03] MEDS: ROCEPHIN/NS 1 GM/50 ML 1 GM/50 ML BAG IV SCH (09:48)
[2019-01-03] MEDS: SODIUM CHLORIDE FLUSH SYRINGE 10 ML IV SCH ×2 (09:49→22:36)
[2019-01-03] MEDS: DELTASONE PO SCH (09:49)
[2019-01-03] MEDS: THALITONE PO SCH (10:00)
[2019-01-03] MEDS: APRESOLINE PO SCH (10:00)
[2019-01-03] MEDS ORDERED: COLCHICINE PO SCH (10:00)
[2019-01-03] MEDS: TENORMIN PO SCH (10:00)
--- NOTE | 2019-01-03 12:28 | Consultation ---
History of Present Illness - Reason for Consult Consult date: 01/03/19 Reason for consult: Mental Health Evaluation Requesting physician: MARIE ESCAMILLA - Chief Complaint Chief complaint: "I don't want burden my family" - History of Present Psychiatric Illness 78 y.o. AA female who presented to the hospital for medial evaluation. Psychiatry was consulted for possible depression. Today the patient was calm and cooperative during the assessment. She stated that things have been tough for her because of several medical issues. 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 She was able to state the current/past [place] Presidents along with recal ling 2/3 numbers within 5 mins. Per collateral information from her sister Eliane Everett who was at the bedside, she stated that the patient isolate herself. She denies that the patient has a prior mental health dx when asked. She feel like the patient need to move around more at home. The patient stated that she experience pain sometimes and want to relax. She stated that she is willing to attend more rehab services along with spending time at the local [facility] near her home. She denies SI/HI's and AVH's. She denies recreational drug use and alcohol consumption (etoh). Medications and Allergies Allergies Allergy/AdvReac Type Severity Reaction Status Date / Time turkey Allergy Intermediate Hives Verified 07/07/18 19:18 tramadol AdvReac Intermediate Dizziness Verified 07/10/18 03:08 naproxen AdvReac Mild Dizziness Verified 07/07/18 19:19 Home Medications Medication Instructions Recorded Confirmed Last Taken Type Colchicine 0.6 mg PO DAILY #60 capsule 02/05/17 01/02/19 Unknown Rx Atenolol/Chlorthalidone [Tenoretic 1 tab PO QDAY 07/06/18 01/02/19 Unknown History 50-25] Febuxostat [Uloric] 40 mg PO DAILY 07/06/18 01/02/19 01/01/19 10:00 History Docusate Sodium [Colace CAP] 100 mg PO BID PRN #30 capsule 07/10/18 01/02/19 Unknown Rx predniSONE [Deltasone] 10 mg PO DAILY #5 tablet 07/10/18 01/02/19 Unknown Rx Acetaminophen [Acetaminophen TAB] 650 mg PO Q4H PRN #15 tablet 09/13/18 01/02/19 Unknown Rx Famotidine [Pepcid] 40 mg PO QHS #30 09/13/18 01/02/19 Unknown Rx Hydralazine HCl 50 mg PO BID #60 09/13/18 01/02/19 01/01/19 10:00 Rx Tylenol /Codeine # 3 tab 300 mg PO BID PRN 01/02/19 01/02/19 Unknown History Active Meds: Active Medications Acetaminophen (Tylenol) 650 mg PO Q4H PRN PRN Reason: Pain MILD(1-3)/Fever >100.5/MCKEON Acetaminophen/Codeine Phosphate (Tylenol #3) 1 tab PO Q6H PRN PRN Reason: Pain, Moderate (4-6) Last Admin: 01/03/19 05:32 Dose: 1 tab Documented by: Atenolol (Tenormin) 50 mg PO QDAY [facility] Last Admin: 01/02/19 10:30 Dose: 50 mg Documented by: Chlorthalidone (Thalitone) 25 mg PO QDAY [facility] Last Admin: 01/02/19 11:00 Dose: 25 mg Documented by: Docusate Sodium (Colace) 100 mg PO BID PRN PRN Reason: Constipation Famotidine (Pepcid) 20 mg PO QHS [facility] Last Admin: 01/02/19 21:46 Dose: 20 mg Documented by: Hydralazine HCl (Apresoline) 25 mg PO DAILY [facility] Last Admin: 01/02/19 12:14 Dose: 25 mg Documented by: Ceftriaxone Sodium (Rocephin/Ns 1 Gm/50 Ml) 1 gm in 50 mls @ 100 mls/hr IV Q24HR [facility]; Protocol Last Admin: 01/03/19 09:48 Dose: 100 mls/hr Documented by: Miscellaneous Medication (Febuxostat [Uloric]) 40 mg PO DAILY [facility] Last Admin: 01/03/19 09:49 Dose: 40 mg Documented by: Ondansetron HCl (Zofran) 4 mg IV Q8H PRN PRN Reason: Nausea And Vomiting Prednisone (Deltasone) 10 mg PO DAILY [facility] Last Admin: 01/03/19 09:49 Dose: 10 mg Documented by: Sodium Chloride (Sodium Chloride Flush Syringe 10 Ml) 10 ml IV BID [facility] Last Admin: 01/03/19 09:49 Dose: 10 ml Documented by: Sodium Chloride (Sodium Chloride Flush Syringe 10 Ml) 10 ml IV PRN PRN PRN Reason: LINE FLUSH Past psychiatric history - Past Medical History Past Medical History: hypertension, other (Gout, Osteoarthritis) Past Surgical History: hysterectomy - past Psychiatric treatment and history psychiatric treatment history: Denies a psy hx and fam psy hx. - Social History Social history: lives with family Mental Status Exam - Vital signs Last Vital Signs Temp 97.9 F 01/03/19 03:00 Pulse 64 01/03/19 03:00 Resp 22 01/03/19 03:00 BP 130/61 01/03/19 03:00 Pulse Ox 97 01/03/19 03:00 - Exam Narrative exam: MSE: Appearance: calm, cooperative Behavior: regular eye contact Speech: regular rate and tone Mood: "fine" Affect: congruent to mood Thought Process: logical Thought Content: denies SI/HI's and AVH's Motor Activity: lying in bed Cognition: A/O x 3 Insight: fair Judgment: fair Results Result Diagrams: 01/02/19 04:24 01/02/19 04:24 All other labs normal. Assessment and Plan Assessment and plan: Impression: Today the patient was calm and cooperative during the assessment. No Neuro Cog deficits at this time. Possibly family Dynamics issues with the family. Recommendations/Plan: The patient can follow up with her PCP. The patient stated that she would like to spend a couple of days a week at the [facility] near here home. That information was relayed to the patient's sister Ms Eliane Everett. Psy sign off. Staffed with Dr Samantha Noyola.
--- NOTE | 2019-01-03 13:53 | Progress Note ---
Assessment and Plan Assessment and plan: Patient is a 78 Y Female with MO, HTN, GERD, Gout, OA presents to ED for evaluation. Pt states that she has experienced generalized weakness over the past 1 week, as well as pain in her left knee, lower back with worsening symptoms over the past 2 days. Pt states that she is unable to bear weight on her left knee as well as decreased oral intake. Pt states that the pain is 8/10, constant, worsened with weight bearing. EMS notified, and upon arrival the patient was found to be in distress. The patient has been mostly nonambulatory in the last few weeks. She did about sometime in August received injections to her back with improvement in her symptoms and was active but subsequently in the last few weeks this has worsened with a flareup. There is a feeling that there is lack of information lasted how recurrent this condition could be. They have not been able to follow with tune up mechanic as described and prescribed during the last admission. Pt sister also placed a request Case Management intervention for LYNNE/SNF placement. She also that the patient is not cooperative with any active at home in general. She is not currently getting physical therapy or occupational therapy. She has previously been in rehabilitation. SIRS without organ dysfunction Left Knee osteoarthritis ?Gout Chronic Kidney injury stage 3 Chronic Debility secondary to Gout/Osteoarthritis Dementia Depression HTN Plan continue supportive care Orthopedics saw her with intra-articular injections CM is aware and working on placement. CT head reviewed and negative. X-ray of the knee revealed shows mild swelling in the mid anterior region. Physical therapy evaluate and treat Pain control Continue current home medications. Avoid nephrotoxic medications. DVT and GI prophylaxis Plan of care discussed with family and the patient. History Interval history: Patient was seen and evaluated this morning, complaining swelling and pain in the left knee otherwise no complaints. Hospitalist Physical - Physical exam Narrative exam: Not in cardiopulmonary distress. The patient is obese. Vital signs as documented. Head exam is unremarkable. No scleral icterus . Neck is without jugular venous distension, thyromegaly, or carotid bruits. Lungs are clear to auscultation. Cardiac exam reveals regular rate and Rhythm. Abdominal exam reveals normal bowel sounds. Extremities are left knee swelling and tenderness. 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 No focal weakness. - Constitutional Vitals: Temp Pulse Resp BP Pulse Ox 97.9 F 64 22 130/61 97 01/03/19 03:00 01/03/19 03:00 01/03/19 03:00 01/03/19 03:00 01/03/19 03:00 General appearance: Present: mild distress, obese Results - Labs CBC & Chem 7: 01/02/19 04:24 01/02/19 04:24 Labs: Laboratory Last Values WBC 16.1 K/mm3 (4.5-11.0) H 01/02/19 04:24 RBC 4.30 M/mm3 (3.65-5.03) 01/02/19 04:24 Hgb 11.2 gm/dl (10.1-14.3) 01/02/19 04:24 Hct 35.8 % (30.3-42.9) 01/02/19 04:24 MCV 83 fl (79-97) 01/02/19 04:24 MCH 26 pg (28-32) L 01/02/19 04:24 MCHC 31 % (30-34) 01/02/19 04:24 RDW 17.5 % (13.2-15.2) H 01/02/19 04:24 Plt Count 488 K/mm3 (140-440) H 01/02/19 04:24 Lymph % (Auto) 8.8 % (13.4-35.0) L 01/02/19 04:24 [place] % (Auto) 8.8 % (0.0-7.3) H 01/02/19 04:24 Eos % (Auto) 0.1 % (0.0-4.3) 01/02/19 04:24 Baso % (Auto) 0.7 % (0.0-1.8) 01/02/19 04:24 Lymph # 1.4 K/mm3 (1.2-5.4) 01/02/19 04:24 [place] # 1.4 K/mm3 (0.0-0.8) H 01/02/19 04:24 Eos # 0.0 K/mm3 (0.0-0.4) 01/02/19 04:24 Baso # 0.1 K/mm3 (0.0-0.1) 01/02/19 04:24 Seg Neutrophils % 81.6 % (40.0-70.0) H 01/02/19 04:24 Seg Neutrophils # 13.1 K/mm3 (1.8-7.7) H 01/02/19 04:24 Sodium 142 mmol/L (137-145) 01/02/19 04:24 Potassium 4.1 mmol/L (3.6-5.0) 01/02/19 04:24 Chloride 99.7 mmol/L (98-107) 01/02/19 04:24 Carbon Dioxide 27 mmol/L (22-30) 01/02/19 04:24 19 mmol/L 01/02/19 04:24 BUN 44 mg/dL (7-17) H 01/02/19 04:24 1.6 mg/dL (0.7-1.2) H 01/02/19 04:24 Estimated GFR 38 ml/min 01/02/19 04:24 28 % 01/02/19 04:24 Glucose 113 mg/dL (65-100) H 01/02/19 04:24 5.0 mg/dL (3.5-7.6) 01/01/19 08:37 Calcium 10.2 mg/dL (8.4-10.2) 01/02/19 04:24 0.60 mg/dL (0.1-1.2) 01/02/19 04:24 AST 28 units/L (5-40) 01/02/19 04:24 ALT 27 units/L (7-56) 01/02/19 04:24 78 units/L (35-129) 01/02/19 04:24 33 units/L (30-135) 01/01/19 09:22 CK-MB (CK-2) < 1.0 ng/mL (0.0-4.0) 01/01/19 09:22 CK-MB (CK-2) Rel Index 3.0 (0-4) 01/01/19 09:22 7.1 g/dL (6.3-8.2) 01/02/19 04:24 3.4 g/dL (3.9-5) L 01/02/19 04:24 0.9 % 01/02/19 04:24 Yellow (Yellow) 01/02/19 05:10 Slightly-cloudy (Clear) 01/02/19 05:10 5.0 (5.0-7.0) 01/02/19 05:10 Ur Specific [place] 1.016 (1.003-1.030) 01/02/19 05:10 <15 mg/dl mg/dL (Negative) 01/02/19 05:10 Neg mg/dL (Negative) 01/02/19 05:10 Neg mg/dL (Negative) 01/02/19 05:10 Neg (Negative) 01/02/19 05:10 Neg (Negative) 01/02/19 05:10 Neg (Negative) 01/02/19 05:10 2.0 mg/dL (<2.0) 01/02/19 05:10 Ur Leukocyte Esterase Neg (Negative) 01/02/19 05:10 1.0 /HPF (0.0-6.0) 01/02/19 05:10 < 1.0 /HPF (0.0-6.0) 01/02/19 05:10 U Epithel Cells (Auto) 5.0 /HPF (0-13.0) 01/02/19 05:10 Few /HPF 01/02/19 05:10 Active Medications - Current Medications Current Medications: Generic Name Dose Route Start Last Admin Trade Name Freq PRN Reason Stop Dose Admin Acetaminophen 650 mg 01/01/19 13:26 Tylenol PO Q4H PRN Pain MILD(1-3)/Fever >100.5/MCKEON Acetaminophen/Codeine Phosphate 1 tab 01/02/19 15:08 01/03/19 05:32 Tylenol #3 PO 1 tab Q6H PRN Administration Pain, Moderate (4-6) Atenolol 50 mg 01/01/19 14:00 01/02/19 10:30 Tenormin PO 50 mg QDAY [facility] Administration Chlorthalidone 25 mg 01/01/19 14:00 01/02/19 11:00 Thalitone PO 25 mg QDAY [facility] Administration Docusate Sodium 100 mg 01/01/19 13:26 Colace PO BID PRN Constipation Famotidine 20 mg 01/01/19 22:00 01/02/19 21:46 Pepcid PO 20 mg QHS [facility] Administration Hydralazine HCl 25 mg 01/02/19 12:00 01/02/19 12:14 Apresoline PO 25 mg DAILY [facility] Administration Ceftriaxone Sodium 1 gm in 50 mls @ 100 mls/hr 01/01/19 20:06 01/03/19 09:48 Rocephin/Ns 1 Gm/50 Ml IV 100 mls/hr Q24HR [facility] Administration Protocol Miscellaneous Medication 40 mg 01/02/19 10:00 01/03/19 09:49 Febuxostat [Uloric] PO 40 mg DAILY [facility] Administration Ondansetron HCl 4 mg 01/01/19 13:23 Zofran IV Q8H PRN Nausea And Vomiting Prednisone 10 mg 01/01/19 14:00 01/03/19 09:49 Deltasone PO 10 mg DAILY [facility] Administration Sodium Chloride 10 ml 01/01/19 22:00 01/03/19 09:49 Sodium Chloride Flush Syringe 10 Ml IV 10 ml BID [facility] Administration Sodium Chloride 10 ml 01/01/19 13:23 Sodium Chloride Flush Syringe 10 Ml IV PRN PRN LINE FLUSH Nutrition/Malnutrition Assess - Dietary Evaluation Nutrition/Malnutrition Findings: Nutrition Notes Start: 01/02/19 16:50 Freq: Status: Active Protocol: Document 01/02/19 16:50 RM (Rec: 01/02/19 17:01 RM [id number]) Nutrition Notes Need for Assessment generated from: MST Initial or Follow up Assessment Current Diagnosis Acute Kidney Injury, Hypertension Other Pertinent Diagnosis GERD, SIRS, Dementia, Depression, UTI, Gout Current Diet Renal Labs/Tests Reviewed Pertinent Medications Prednisone Height 5 ft 2 in Weight 104.2 kg Usual Body Weight 125.9 kg [place] Body Weight (kg) 50.00 BMI 42.0 Weight change and time frame 17% wt loss X 1 year 3 1/2 months Subjective/Other Information Screened for malnutrition. 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 Stated that her appetite is poor now. Nurse stated that pt ate 40-50% of her breakfast. Pt stated that UBS was 277 lbs in August 2017. No temporal or orbital wasting . Percent of energy/protein needs met: 66%/46% Burn Absent Trauma Absent #1 Nutrition Diagnosis Inadequate oral intake Etiology decreased appetite As Evidenced by Signs and Symptoms pt nurse statement that pt ate 40-50% of her breakfast Is patient on ventilator? No Is Patient Ambulatory and/or Out of Bed Yes REE-([place] Je[place]-ambulatory/OOB) [ 1924.325 NUTR.MSJOOB] Kcal/Kg value to use for calculation 14 Approximate Energy Requirements Using 1459 kcal/Kg Calculation Used for Recommendations Kcal/kg Additional Notes Protein Needs: 77-100g (1-1.3g /kg 77kg adjBW) Fluid Needs: 1 ml/kcal Nutrition Intervention Change Diet Order: continue current Add Supplement/Snack (indicate name/kcal Ensure Enlive Vanilla, /protein ) [place] 1 daily Provides kCal: 350 Provides Protein (gm) 20 Goal #1 Meet at least 75% of calorie and protein needs via PO and ONS intakes Anticipated Discharge Needs: Renal diet Follow-Up By: 01/04/19 Additional Comments Follow for PO and ONS intakes
[2019-01-03] MEDS: PEPCID PO SCH (22:36)
[2019-01-03] MEDS: COLACE PO PRN (22:36)
[2019-01-04 06:21] LABS: Basophils # (Auto) 0.2 K/mm3 (0.0-0.1); Basophils % (Auto) 1.7 % (0.0-1.8); Eosinophils # (Auto) 0.1 K/mm3 (0.0-0.4); Hematocrit 33.1 % (30.3-42.9); Hemoglobin 10.6 gm/dl (10.1-14.3); Lymphocytes # (Auto) 1.9 K/mm3 (1.2-5.4); Lymphocytes % (Auto) 16.2 % (13.4-35.0); Mean Corpuscular HGB Conc 32 % (30-34); Mean Corpuscular Volume 83 fl (79-97); Monocytes # (Auto) 1.5 K/mm3 (0.0-0.8); Monocytes % (Auto) 12.6 % (0.0-7.3); Platelet Count 471 K/mm3 (140-440); Red Blood Count 3.99 M/mm3 (3.65-5.03); Red Cell Distribution Width 17.7 % (13.2-15.2)
[2019-01-04 06:33] LABS: Calcium 9.7 mg/dL (8.4-10.2)
[2019-01-04] MEDS: TYLENOL #3 PO PRN (09:09)
[2019-01-04] MEDS: ROCEPHIN/NS 1 GM/50 ML 1 GM/50 ML BAG IV SCH (09:10)
[2019-01-04] MEDS: SODIUM CHLORIDE FLUSH SYRINGE 10 ML IV SCH ×2 (09:10→22:00)
[2019-01-04] MEDS: APRESOLINE PO SCH (09:10)
[2019-01-04] MEDS: DELTASONE PO SCH (09:10)
[2019-01-04] MEDS: NON-FORMULARY (Febuxostat [Uloric] 40 MG) PO SCH (09:10)
[2019-01-04] MEDS: THALITONE PO SCH (09:11)
[2019-01-04] MEDS: TENORMIN PO SCH (09:11)
--- NOTE | 2019-01-04 13:58 | Progress Note ---
Assessment and Plan DJD left knee recommend - intra-articular depomedrol injection Subjective Date of service: 01/04/19 Interval history: c/o left knee and hip pain Objective Vital signs: Vital Signs - 12hr 01/04/19 01/04/19 01/04/19 02:12 07:55 07:59 Temperature 98.5 F 97.9 F Pulse Rate 54 L 54 L Respiratory 20 18 Rate Blood Pressure 147/66 122/44 Blood Pressure 129/49 [Right] O2 Sat by Pulse 96 97 Oximetry Narrative Exam: left LE - hip - decreased passive ROM, - Labs CBC & BMP: 01/04/19 05:46 01/04/19 05:46 Labs: Abnormal lab results 01/04/19 01/04/19 Range/Units 05:46 05:46 WBC 12.0 H (4.5-11.0) K/mm3 MCH 27 L (28-32) pg RDW 17.7 H (13.2-15.2) % Plt Count 471 H (140-440) K/mm3 [place] % (Auto) 12.6 H (0.0-7.3) % [place] # 1.5 H (0.0-0.8) K/mm3 Baso # 0.2 H (0.0-0.1) K/mm3 Seg Neutrophils # 8.2 H (1.8-7.7) K/mm3 Potassium 3.5 L (3.6-5.0) mmol/L BUN 47 H (7-17) mg/dL Creatinine 1.4 H (0.7-1.2) mg/dL
--- NOTE | 2019-01-04 15:03 | Progress Note ---
Assessment and Plan Assessment and plan: Patient is a 78 Y Female with MO, HTN, GERD, Gout, OA presents to ED for evaluation. Pt states that she has experienced generalized weakness over the past 1 week, as well as pain in her left knee, lower back with worsening symptoms over the past 2 days. Pt states that she is unable to bear weight on her left knee as well as decreased oral intake. Pt states that the pain is 8/10, constant, worsened with weight bearing. EMS notified, and upon arrival the patient was found to be in distress. The patient has been mostly nonambulatory in the last few weeks. She did about sometime in August received injections to her back with improvement in her symptoms and was active but subsequently in the last few weeks this has worsened with a flareup. There is a feeling that there is lack of information lasted how recurrent this condition could be. They have not been able to follow with escort car driver as described and prescribed during the last admission. Pt sister also placed a request Case Management intervention for LYNNE/SNF placement. She also that the patient is not cooperative with any active at home in general. She is not currently getting physical therapy or occupational therapy. She has previously been in rehabilitation. SIRS without organ dysfunction Left Knee osteoarthritis ?Gout Chronic Kidney injury stage 3 Chronic Debility secondary to Gout/Osteoarthritis Dementia Depression HTN Plan continue supportive care Orthopedics did intra-articular injections on 01/04/19 CM is aware and working on placement. CT head reviewed and negative. X-ray of the knee revealed shows mild swelling in the mid anterior region. Physical therapy evaluate and treat Pain control Continue current home medications. Avoid nephrotoxic medications. DVT and GI prophylaxis Plan of care discussed with family and the patient. Pending SNF placement. History Interval history: Patient was seen and evaluated this morning, complaining swelling and pain in the left knee otherwise no complaints. Hospitalist Physical - Physical exam Narrative exam: Not in cardiopulmonary distress. The patient is obese. Vital signs as documented. Head exam is unremarkable. No scleral icterus . Neck is without jugular venous distension, thyromegaly, or carotid bruits. Lungs are clear to auscultation. Cardiac exam reveals regular rate and Rhythm. Abdominal exam reveals normal bowel sounds. Extremities are left knee swelling and tenderness. CRITICAL CARE NURSE PRACTITIONER: Alert and oriented 3. No focal weakness. - Constitutional Vitals: Temp Pulse Resp BP Pulse Ox 97.9 F 66 18 130/57 94 01/04/19 13:53 08/14/19 13:53 01/04/19 13:53 01/04/19 13:53 01/04/19 13:53 General appearance: Present: mild distress, obese Results - Labs CBC & Chem 7: 01/04/19 05:46 01/04/19 05:46 Labs: Laboratory Last Values WBC 12.0 K/mm3 (4.5-11.0) H 01/04/19 05:46 RBC 3.99 M/mm3 (3.65-5.03) 01/04/19 05:46 Hgb 10.6 gm/dl (10.1-14.3) 01/04/19 05:46 Hct 33.1 % (30.3-42.9) 01/04/19 05:46 MCV 83 fl (79-97) 01/04/19 05:46 MCH 27 pg (28-32) L 01/04/19 05:46 MCHC 32 % (30-34) 01/04/19 05:46 RDW 17.7 % (13.2-15.2) H 01/04/19 05:46 Plt Count 471 K/mm3 (140-440) H 01/04/19 05:46 Lymph % (Auto) 16.2 % (13.4-35.0) 01/04/19 05:46 [place] % (Auto) 12.6 % (0.0-7.3) H 01/04/19 05:46 Eos % (Auto) 1.0 % (0.0-4.3) 01/04/19 05:46 Baso % (Auto) 1.7 % (0.0-1.8) 01/04/19 05:46 Lymph # 1.9 K/mm3 (1.2-5.4) 01/04/19 05:46 [place] # 1.5 K/mm3 (0.0-0.8) H 01/04/19 05:46 Eos # 0.1 K/mm3 (0.0-0.4) 01/04/19 05:46 Baso # 0.2 K/mm3 (0.0-0.1) H 01/04/19 05:46 Seg Neutrophils % 68.5 % (40.0-70.0) 01/04/19 05:46 Seg Neutrophils # 8.2 K/mm3 (1.8-7.7) H 01/04/19 05:46 Sodium 144 mmol/L (137-145) 01/04/19 05:46 Potassium 3.5 mmol/L (3.6-5.0) L 01/04/19 05:46 Chloride 103.4 mmol/L (98-107) 01/04/19 05:46 Carbon Dioxide 26 mmol/L (22-30) 01/04/19 05:46 18 mmol/L 01/04/19 05:46 BUN 47 mg/dL (7-17) H 01/04/19 05:46 1.4 mg/dL (0.7-1.2) H 01/04/19 05:46 Estimated GFR 44 ml/min 01/04/19 05:46 34 % 01/04/19 05:46 Glucose 96 mg/dL (65-100) 01/04/19 05:46 5.0 mg/dL (3.5-7.6) 01/01/19 08:37 Calcium 9.7 mg/dL (8.4-10.2) 01/04/19 05:46 0.60 mg/dL (0.1-1.2) 01/02/19 04:24 AST 28 units/L (5-40) 01/02/19 04:24 ALT 27 units/L (7-56) 01/02/19 04:24 78 units/L (35-129) 01/02/19 04:24 33 units/L (30-135) 01/01/19 09:22 CK-MB (CK-2) < 1.0 ng/mL (0.0-4.0) 01/01/19 09:22 CK-MB (CK-2) Rel Index 3.0 (0-4) 01/01/19 09:22 7.1 g/dL (6.3-8.2) 01/02/19 04:24 3.4 g/dL (3.9-5) L 01/02/19 04:24 0.9 % 01/02/19 04:24 Yellow (Yellow) 01/02/19 05:10 Slightly-cloudy (Clear) 01/02/19 05:10 5.0 (5.0-7.0) 01/02/19 05:10 Ur Specific [place] 1.016 (1.003-1.030) 01/02/19 05:10 <15 mg/dl mg/dL (Negative) 01/02/19 05:10 Neg mg/dL (Negative) 01/02/19 05:10 Neg mg/dL (Negative) 01/02/19 05:10 Neg (Negative) 01/02/19 05:10 Neg (Negative) 01/02/19 05:10 Neg (Negative) 01/02/19 05:10 2.0 mg/dL (<2.0) 01/02/19 05:10 Ur Leukocyte Esterase Neg (Negative) 01/02/19 05:10 1.0 /HPF (0.0-6.0) 01/02/19 05:10 < 1.0 /HPF (0.0-6.0) 01/02/19 05:10 U Epithel Cells (Auto) 5.0 /HPF (0-13.0) 01/02/19 05:10 Few /HPF 01/02/19 05:10 Active Medications - Current Medications Current Medications: Generic Name Dose Route Start Last Admin Trade Name Freq PRN Reason Stop Dose Admin Acetaminophen 650 mg 01/01/19 13:26 Tylenol PO Q4H PRN Pain MILD(1-3)/Fever >100.5/MCKEON Acetaminophen/Codeine Phosphate 1 tab 01/02/19 15:08 01/04/19 09:09 Tylenol #3 PO 1 tab Q6H PRN Administration Pain, Moderate (4-6) Atenolol 50 mg 01/01/19 14:00 01/04/19 09:11 Tenormin PO Not Given QDAY [facility] Chlorthalidone 25 mg 01/01/19 14:00 01/04/19 09:11 Thalitone PO Not Given QDAY [facility] Docusate Sodium 100 mg 01/01/19 13:26 01/03/19 22:36 Colace PO 100 mg BID PRN Administration Constipation Famotidine 20 mg 01/01/19 22:00 01/03/19 22:36 Pepcid PO 20 mg QHS [facility] Administration Hydralazine HCl 25 mg 01/02/19 12:00 01/04/19 09:10 Apresoline PO Not Given DAILY [facility] Ceftriaxone Sodium 1 gm in 50 mls @ 100 mls/hr 01/01/19 20:06 01/04/19 09:10 Rocephin/Ns 1 Gm/50 Ml IV 100 mls/hr Q24HR [facility] Administration Protocol Miscellaneous Medication 40 mg 01/02/19 10:00 01/04/19 09:10 Febuxostat [Uloric] PO 40 mg DAILY [facility] Administration Ondansetron HCl 4 mg 01/01/19 13:23 Zofran IV Q8H PRN Nausea And Vomiting Prednisone 10 mg 01/01/19 14:00 01/04/19 09:10 Deltasone PO 10 mg DAILY [facility] Administration Sodium Chloride 10 ml 01/01/19 22:00 01/04/19 09:10 Sodium Chloride Flush Syringe 10 Ml IV 10 ml BID [facility] Administration Sodium Chloride 10 ml 01/01/19 13:23 Sodium Chloride Flush Syringe 10 Ml IV PRN PRN LINE FLUSH Nutrition/Malnutrition Assess - Dietary Evaluation Nutrition/Malnutrition Findings: Nutrition Notes Start: 01/02/19 16:50 Freq: Status: Active Protocol: Document 01/02/19 16:50 RM (Rec: 01/02/19 17:01 RM [id number]) Nutrition Notes Need for Assessment generated from: MST Initial or Follow up Assessment Current Diagnosis Acute Kidney Injury, Hypertension Other Pertinent Diagnosis GERD, SIRS, Dementia, Depression, UTI, Gout Current Diet Renal Labs/Tests Reviewed Pertinent Medications Prednisone Height 5 ft 2 in Weight 104.2 kg Usual Body Weight 125.9 kg [place] Body Weight (kg) 50.00 BMI 42.0 Weight change and time frame 17% wt loss X 1 year 3 1/2 months Subjective/Other Information Screened for malnutrition. 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 Stated that her appetite is poor now. Nurse stated that pt ate 40-50% of her breakfast. Pt stated that UBS was 277 lbs in August 2017. No temporal or orbital wasting . Percent of energy/protein needs met: 66%/46% Burn Absent Trauma Absent #1 Nutrition Diagnosis Inadequate oral intake Etiology decreased appetite As Evidenced by Signs and Symptoms pt nurse statement that pt ate 40-50% of her breakfast Is patient on ventilator? No Is Patient Ambulatory and/or Out of Bed Yes REE-([place]-St. or-ambulatory/OOB) [ 1924.325 NUTR.MSJOOB] Kcal/Kg value to use for calculation 14 Approximate Energy Requirements Using 1459 kcal/Kg Calculation Used for Recommendations Kcal/kg Additional Notes Protein Needs: 77-100g (1-1.3g /kg 77kg adjBW) Fluid Needs: 1 ml/kcal Nutrition Intervention Change Diet Order: continue current Add Supplement/Snack (indicate name/kcal Ensure Enlive Vanilla, /protein ) [place] 1 daily Provides kCal: 350 Provides Protein (gm) 20 Goal #1 Meet at least 75% of calorie and protein needs via PO and ONS intakes Anticipated Discharge Needs: Renal diet Follow-Up By: 01/04/19 Additional Comments Follow for PO and ONS intakes
--- NOTE | 2019-01-04 15:23 | XRay Report ---
LEFT HIP, 2 VIEWS INDICATION: left hip pain, no hx of trauma. COMPARISON: None. IMPRESSION: Borderline osteopenia is suspected. Mild osteoarthritic changes are identified at the l eft hip. Moderate degenerative changes in the lower lumbar spine and SI joints. No evidence for fract ure, bone lesion or osteonecrosis. The soft tissues are unremarkable. Signer Name: Rashi Gregory Jr, MD Signed: 01/04/2019 3:19 PM Workstation Name: [id number]
[2019-01-04] MEDS: PEPCID PO SCH (22:17)
[2019-01-05] MEDS: TYLENOL #3 PO PRN (00:20)
[2019-01-05] MEDS: ROCEPHIN/NS 1 GM/50 ML 1 GM/50 ML BAG IV SCH (09:55)
[2019-01-05] MEDS: DELTASONE PO SCH (09:56)
[2019-01-05] MEDS: COLACE PO PRN (09:56)
[2019-01-05] MEDS: TENORMIN PO SCH (09:56)
[2019-01-05] MEDS: THALITONE PO SCH (09:57)
[2019-01-05] MEDS: APRESOLINE PO SCH (09:57)
[2019-01-05] MEDS: NON-FORMULARY (Febuxostat [Uloric] 40 MG) PO SCH (09:57)
[2019-01-05] MEDS: SODIUM CHLORIDE FLUSH SYRINGE 10 ML IV SCH ×2 (10:03→21:51)
[2019-01-05] MEDS: MIRALAX 3350 PO PRN ×2 (13:30→21:51)
--- NOTE | 2019-01-05 13:38 | Progress Note ---
Assessment and Plan Assessment and plan: Patient is a 78 Y Female with MO, HTN, GERD, Gout, OA presents to ED for evaluation. Pt states that she has experienced generalized weakness over the past 1 week, as well as pain in her left knee, lower back with worsening symptoms over the past 2 days. Pt states that she is unable to bear weight on her left knee as well as decreased oral intake. Pt states that the pain is 8/10, constant, worsened with weight bearing. EMS notified, and upon arrival the patient was found to be in distress. The patient has been mostly nonambulatory in the last few weeks. She did about sometime in August received injections to her back with improvement in her symptoms and was active but subsequently in the last few weeks this has worsened with a flareup. There is a feeling that there is lack of information lasted how recurrent this condition could be. They have not been able to follow with auditor as described and prescribed during the last admission. Pt sister also placed a request Case Management intervention for LYNNE/SNF placement. She also that the patient is not cooperative with any active at home in general. She is not currently getting physical therapy or occupational therapy. She has previously been in rehabilitation. SIRS without organ dysfunction Left Knee osteoarthritis ?Gout Chronic Kidney injury stage 3 Chronic Debility secondary to Gout/Osteoarthritis Dementia Depression HTN Plan continue supportive care Orthopedics did intra-articular injections on 01/04/19 CM is aware and working on placement. CT head reviewed and negative. X-ray of the knee revealed shows mild swelling in the mid anterior region. Physical therapy evaluate and treat Pain control Continue current home medications. Avoid nephrotoxic medications. DVT and GI prophylaxis Plan of care discussed with family and the patient. Pending SNF placement. History Interval history: Patient was seen and evaluated this morning, complaining swelling and pain in the left knee otherwise no complaints. Hospitalist Physical - Physical exam Narrative exam: Not in cardiopulmonary distress. The patient is obese. Vital signs as documented. Head exam is unremarkable. No scleral icterus . Neck is without jugular venous distension, thyromegaly, or carotid bruits. Lungs are clear to auscultation. Cardiac exam reveals regular rate and Rhythm. Abdominal exam reveals normal bowel sounds. Extremities are left knee swelling and tenderness. LINING CLEANER: Alert and oriented 3. No focal weakness. - Constitutional Vitals: Temp Pulse Resp BP Pulse Ox 98.6 F 60 20 129/62 98 01/05/19 07:56 08/15/19 10:00 01/05/19 10:00 01/05/19 09:57 01/05/19 10:00 General appearance: Present: mild distress, obese Results - Labs CBC & Chem 7: 01/04/19 05:46 01/04/19 05:46 Labs: Laboratory Last Values WBC 12.0 K/mm3 (4.5-11.0) H 01/04/19 05:46 RBC 3.99 M/mm3 (3.65-5.03) 01/04/19 05:46 Hgb 10.6 gm/dl (10.1-14.3) 01/04/19 05:46 Hct 33.1 % (30.3-42.9) 01/04/19 05:46 MCV 83 fl (79-97) 01/04/19 05:46 MCH 27 pg (28-32) L 01/04/19 05:46 MCHC 32 % (30-34) 01/04/19 05:46 RDW 17.7 % (13.2-15.2) H 01/04/19 05:46 Plt Count 471 K/mm3 (140-440) H 01/04/19 05:46 Lymph % (Auto) 16.2 % (13.4-35.0) 01/04/19 05:46 [place] % (Auto) 12.6 % (0.0-7.3) H 01/04/19 05:46 Eos % (Auto) 1.0 % (0.0-4.3) 01/04/19 05:46 Baso % (Auto) 1.7 % (0.0-1.8) 01/04/19 05:46 Lymph # 1.9 K/mm3 (1.2-5.4) 01/04/19 05:46 [place] # 1.5 K/mm3 (0.0-0.8) H 01/04/19 05:46 Eos # 0.1 K/mm3 (0.0-0.4) 01/04/19 05:46 Baso # 0.2 K/mm3 (0.0-0.1) H 01/04/19 05:46 Seg Neutrophils % 68.5 % (40.0-70.0) 01/04/19 05:46 Seg Neutrophils # 8.2 K/mm3 (1.8-7.7) H 01/04/19 05:46 Sodium 144 mmol/L (137-145) 01/04/19 05:46 Potassium 3.5 mmol/L (3.6-5.0) L 01/04/19 05:46 Chloride 103.4 mmol/L (98-107) 01/04/19 05:46 Carbon Dioxide 26 mmol/L (22-30) 01/04/19 05:46 18 mmol/L 01/04/19 05:46 BUN 47 mg/dL (7-17) H 01/04/19 05:46 1.4 mg/dL (0.7-1.2) H 01/04/19 05:46 Estimated GFR 44 ml/min 01/04/19 05:46 34 % 01/04/19 05:46 Glucose 96 mg/dL (65-100) 01/04/19 05:46 5.0 mg/dL (3.5-7.6) 01/01/19 08:37 Calcium 9.7 mg/dL (8.4-10.2) 01/04/19 05:46 0.60 mg/dL (0.1-1.2) 01/02/19 04:24 AST 28 units/L (5-40) 01/02/19 04:24 ALT 27 units/L (7-56) 01/02/19 04:24 78 units/L (35-129) 01/02/19 04:24 33 units/L (30-135) 01/01/19 09:22 CK-MB (CK-2) < 1.0 ng/mL (0.0-4.0) 01/01/19 09:22 CK-MB (CK-2) Rel Index 3.0 (0-4) 01/01/19 09:22 7.1 g/dL (6.3-8.2) 01/02/19 04:24 3.4 g/dL (3.9-5) L 01/02/19 04:24 0.9 % 01/02/19 04:24 Yellow (Yellow) 01/02/19 05:10 Slightly-cloudy (Clear) 01/02/19 05:10 5.0 (5.0-7.0) 01/02/19 05:10 Ur Specific [place] 1.016 (1.003-1.030) 01/02/19 05:10 <15 mg/dl mg/dL (Negative) 01/02/19 05:10 Neg mg/dL (Negative) 01/02/19 05:10 Neg mg/dL (Negative) 01/02/19 05:10 Neg (Negative) 01/02/19 05:10 Neg (Negative) 01/02/19 05:10 Neg (Negative) 01/02/19 05:10 2.0 mg/dL (<2.0) 01/02/19 05:10 Ur Leukocyte Esterase Neg (Negative) 01/02/19 05:10 1.0 /HPF (0.0-6.0) 01/02/19 05:10 < 1.0 /HPF (0.0-6.0) 01/02/19 05:10 U Epithel Cells (Auto) 5.0 /HPF (0-13.0) 01/02/19 05:10 Few /HPF 01/02/19 05:10 Active Medications - Current Medications Current Medications: Generic Name Dose Route Start Last Admin Trade Name Freq PRN Reason Stop Dose Admin Acetaminophen 650 mg 01/01/19 13:26 Tylenol PO Q4H PRN Pain MILD(1-3)/Fever >100.5/MCKEON Acetaminophen/Codeine Phosphate 1 tab 01/02/19 15:08 01/05/19 00:20 Tylenol #3 PO 1 tab Q6H PRN Administration Pain, Moderate (4-6) Atenolol 50 mg 01/01/19 14:00 01/05/19 09:56 Tenormin PO 50 mg QDAY LULU Administration Chlorthalidone 25 mg 01/01/19 14:00 01/05/19 09:57 Thalitone PO 25 mg QDAY LULU Administration Docusate Sodium 100 mg 01/01/19 13:26 01/05/19 09:56 Colace PO 100 mg BID PRN Administration Constipation Famotidine 20 mg 01/01/19 22:00 01/04/19 22:17 Pepcid PO 20 mg QHS LULU Administration Hydralazine HCl 25 mg 01/02/19 12:00 01/05/19 09:57 Apresoline PO 25 mg DAILY LULU Administration Ceftriaxone Sodium 1 gm in 50 mls @ 100 mls/hr 01/01/19 20:06 01/05/19 09:55 Rocephin/Ns 1 Gm/50 Ml IV 100 mls/hr Q24HR LULU Administration Protocol Miscellaneous Medication 40 mg 01/02/19 10:00 01/05/19 09:57 Febuxostat [Uloric] PO 40 mg DAILY LULU Administration Ondansetron HCl 4 mg 01/01/19 13:23 Zofran IV Q8H PRN Nausea And Vomiting Polyethylene Glycol 17 gm 01/05/19 12:00 01/05/19 13:30 Miralax 3350 PO 17 gm BID PRN Administration Constipation Prednisone 10 mg 01/01/19 14:00 01/05/19 09:56 Deltasone PO 10 mg DAILY LULU Administration Sodium Chloride 10 ml 01/01/19 22:00 01/05/19 10:03 Sodium Chloride Flush Syringe 10 Ml IV 10 ml BID LULU Administration Sodium Chloride 10 ml 01/01/19 13:23 Sodium Chloride Flush Syringe 10 Ml IV PRN PRN LINE FLUSH Nutrition/Malnutrition Assess - Dietary Evaluation Nutrition/Malnutrition Findings: Nutrition Notes Start: 01/02/19 16:50 Freq: Status: Active Protocol: Document 01/04/19 15:12 AASHISH (Rec: 01/04/19 15:17 AASHISH [id number] [email or web address]) Nutrition Notes Initial or Follow up Brief Note Current Diet Renal Labs/Tests K 3.4 Cr 1.4 BUN 47 Height 5 ft 2 in Weight 104.2 kg [place] Body Weight (kg) 50.00 BMI 42.0 Subjective/Other Information Pt has consumed 85% of meals since last assessment. She reports much improved appetite . Percent of energy/protein needs met: 94% energy 100% pro #1 Nutrition Diagnosis Inadequate oral intake As Evidenced by Signs and Symptoms PO intakes meeting >75% energy and pro needs Diagnosis Progress(for reassessment Resolved documentation) Is patient on ventilator? No Is Patient Ambulatory and/or Out of Bed Yes REE-([place]-St. Jeor-ambulatory/OOB) [ 1924.325 NUTR.MSJOOB] Kcal/Kg value to use for calculation 14 Approximate Energy Requirements Using 1459 kcal/Kg Calculation Used for Recommendations Kcal/kg Additional Notes Pro needs 0.6-0.8g/kg adjBW: 46-62g/day Fluid needs 1ml/kcal Nutrition Intervention Revisit per MD consult or patient Sign Off request:
[2019-01-05] MEDS: PEPCID PO SCH (21:51)
--- NOTE | 2019-01-06 07:25 | Progress Note ---
Assessment and Plan Assessment and plan: Patient is a 78 Y Female with MO, HTN, GERD, Gout, OA presents to ED for evaluation. Pt states that she has experienced generalized weakness over the past 1 week, as well as pain in her left knee, lower back with worsening symptoms over the past 2 days. Pt states that she is unable to bear weight on her left knee as well as decreased oral intake. Pt states that the pain is 8/10, constant, worsened with weight bearing. EMS notified, and upon arrival the patient was found to be in distress. The patient has been mostly nonambulatory in the last few weeks. She did about sometime in August received injections to her back with improvement in her symptoms and was active but subsequently in the last few weeks this has worsened with a flareup. There is a feeling that there is lack of information lasted how recurrent this condition could be. They have not been able to follow with rental sales agent as described and prescribed during the last admission. Pt sister also placed a request Case Management intervention for PENITENTIARY/SNF placement. She also that the patient is not cooperative with any active at home in general. She is not currently getting physical therapy or occupational therapy. She has previously been in rehabilitation. SIRS without organ dysfunction Left Knee osteoarthritis ?Gout Chronic Kidney injury stage 3 Chronic Debility secondary to Gout/Osteoarthritis Dementia Depression HTN Plan continue supportive care Orthopedics did intra-articular injections on 01/04/19 CM is aware and working on placement. CT head reviewed and negative. X-ray of the knee revealed shows mild swelling in the mid anterior region. Physical therapy evaluate and treat Pain control Continue current home medications. Avoid nephrotoxic medications. DVT and GI prophylaxis Plan of care discussed with family and the patient. Pending SNF placement, pending insurance authorization. History Interval history: Patient was seen and evaluated this morning, complaining swelling and pain in the left knee otherwise no complaints. Hospitalist Physical - Physical exam Narrative exam: Not in cardiopulmonary distress. The patient is obese. Vital signs as documented. Head exam is unremarkable. No scleral icterus . Neck is without jugular venous distension, thyromegaly, or carotid bruits. Lungs are clear to auscultation. Cardiac exam reveals regular rate and Rhythm. Abdominal exam reveals normal bowel sounds. Extremities are left knee swelling and tenderness. COOKER CASING: Alert and oriented 3. No focal weakness. - Constitutional Vitals: Temp Pulse Resp BP Pulse Ox 98.3 F 70 18 141/64 98 01/06/19 01:54 01/06/19 01:54 01/06/19 01:54 01/06/19 01:54 01/06/19 01:54 General appearance: Present: mild distress, obese Results - Labs CBC & Chem 7: 01/04/19 05:46 01/04/19 05:46 Labs: Laboratory Last Values WBC 12.0 K/mm3 (4.5-11.0) H 01/04/19 05:46 RBC 3.99 M/mm3 (3.65-5.03) 01/04/19 05:46 Hgb 10.6 gm/dl (10.1-14.3) 01/04/19 05:46 Hct 33.1 % (30.3-42.9) 01/04/19 05:46 MCV 83 fl (79-97) 01/04/19 05:46 MCH 27 pg (28-32) L 01/04/19 05:46 MCHC 32 % (30-34) 01/04/19 05:46 RDW 17.7 % (13.2-15.2) H 01/04/19 05:46 Plt Count 471 K/mm3 (140-440) H 01/04/19 05:46 Lymph % (Auto) 16.2 % (13.4-35.0) 01/04/19 05:46 [place] % (Auto) 12.6 % (0.0-7.3) H 01/04/19 05:46 Eos % (Auto) 1.0 % (0.0-4.3) 01/04/19 05:46 Baso % (Auto) 1.7 % (0.0-1.8) 01/04/19 05:46 Lymph # 1.9 K/mm3 (1.2-5.4) 01/04/19 05:46 [place] # 1.5 K/mm3 (0.0-0.8) H 01/04/19 05:46 Eos # 0.1 K/mm3 (0.0-0.4) 01/04/19 05:46 Baso # 0.2 K/mm3 (0.0-0.1) H 01/04/19 05:46 Seg Neutrophils % 68.5 % (40.0-70.0) 01/04/19 05:46 Seg Neutrophils # 8.2 K/mm3 (1.8-7.7) H 01/04/19 05:46 Sodium 144 mmol/L (137-145) 01/04/19 05:46 Potassium 3.5 mmol/L (3.6-5.0) L 01/04/19 05:46 Chloride 103.4 mmol/L (98-107) 01/04/19 05:46 Carbon Dioxide 26 mmol/L (22-30) 01/04/19 05:46 18 mmol/L 01/04/19 05:46 BUN 47 mg/dL (7-17) H 01/04/19 05:46 1.4 mg/dL (0.7-1.2) H 01/04/19 05:46 Estimated GFR 44 ml/min 01/04/19 05:46 34 % 01/04/19 05:46 Glucose 96 mg/dL (65-100) 01/04/19 05:46 5.0 mg/dL (3.5-7.6) 01/01/19 08:37 Calcium 9.7 mg/dL (8.4-10.2) 01/04/19 05:46 0.60 mg/dL (0.1-1.2) 01/02/19 04:24 AST 28 units/L (5-40) 01/02/19 04:24 ALT 27 units/L (7-56) 01/02/19 04:24 78 units/L (35-129) 01/02/19 04:24 33 units/L (30-135) 01/01/19 09:22 CK-MB (CK-2) < 1.0 ng/mL (0.0-4.0) 01/01/19 09:22 CK-MB (CK-2) Rel Index 3.0 (0-4) 01/01/19 09:22 7.1 g/dL (6.3-8.2) 01/02/19 04:24 3.4 g/dL (3.9-5) L 01/02/19 04:24 0.9 % 01/02/19 04:24 Yellow (Yellow) 01/02/19 05:10 Slightly-cloudy (Clear) 01/02/19 05:10 5.0 (5.0-7.0) 01/02/19 05:10 Ur Specific [place] 1.016 (1.003-1.030) 01/02/19 05:10 <15 mg/dl mg/dL (Negative) 01/02/19 05:10 Neg mg/dL (Negative) 01/02/19 05:10 Neg mg/dL (Negative) 01/02/19 05:10 Neg (Negative) 01/02/19 05:10 Neg (Negative) 01/02/19 05:10 Neg (Negative) 01/02/19 05:10 2.0 mg/dL (<2.0) 01/02/19 05:10 Ur Leukocyte Esterase Neg (Negative) 01/02/19 05:10 1.0 /HPF (0.0-6.0) 01/02/19 05:10 < 1.0 /HPF (0.0-6.0) 01/02/19 05:10 U Epithel Cells (Auto) 5.0 /HPF (0-13.0) 01/02/19 05:10 Few /HPF 01/02/19 05:10 Active Medications - Current Medications Current Medications: Generic Name Dose Route Start Last Admin Trade Name Freq PRN Reason Stop Dose Admin Acetaminophen 650 mg 01/01/19 13:26 Tylenol PO Q4H PRN Pain MILD(1-3)/Fever >100.5/MCKEON Acetaminophen/Codeine Phosphate 1 tab 01/02/19 15:08 01/05/19 00:20 Tylenol #3 PO 1 tab Q6H PRN Administration Pain, Moderate (4-6) Atenolol 50 mg 01/01/19 14:00 01/05/19 09:56 Tenormin PO 50 mg QDAY LULU Administration Chlorthalidone 25 mg 01/01/19 14:00 01/05/19 09:57 Thalitone PO 25 mg QDAY LULU Administration Docusate Sodium 100 mg 01/01/19 13:26 01/05/19 09:56 Colace PO 100 mg BID PRN Administration Constipation Famotidine 20 mg 01/01/19 22:00 01/05/19 21:51 Pepcid PO 20 mg QHS LULU Administration Hydralazine HCl 25 mg 01/02/19 12:00 01/05/19 09:57 Apresoline PO 25 mg DAILY LULU Administration Ceftriaxone Sodium 1 gm in 50 mls @ 100 mls/hr 01/01/19 20:06 01/05/19 09:55 Rocephin/Ns 1 Gm/50 Ml IV 100 mls/hr Q24HR LULU Administration Protocol Miscellaneous Medication 40 mg 01/02/19 10:00 01/05/19 09:57 Febuxostat [Uloric] PO 40 mg DAILY LULU Administration Ondansetron HCl 4 mg 01/01/19 13:23 Zofran IV Q8H PRN Nausea And Vomiting Polyethylene Glycol 17 gm 01/05/19 12:00 01/05/19 21:51 Miralax 3350 PO 17 gm BID PRN Administration Constipation Prednisone 10 mg 01/01/19 14:00 01/05/19 09:56 Deltasone PO 10 mg DAILY LULU Administration Sodium Chloride 10 ml 01/01/19 22:00 01/05/19 21:51 Sodium Chloride Flush Syringe 10 Ml IV 10 ml BID LULU Administration Sodium Chloride 10 ml 01/01/19 13:23 Sodium Chloride Flush Syringe 10 Ml IV PRN PRN LINE FLUSH Nutrition/Malnutrition Assess - Dietary Evaluation Nutrition/Malnutrition Findings: Nutrition Notes Start: 01/02/19 16:50 Freq: Status: Active Protocol: Document 01/04/19 15:12 AASHISH (Rec: 01/04/19 15:17 AASHISH [email or web address]) Nutrition Notes Initial or Follow up Brief Note Current Diet Renal Labs/Tests K 3.4 Cr 1.4 BUN 47 Height 5 ft 2 in Weight 104.2 kg [place] Body Weight (kg) 50.00 BMI 42.0 Subjective/Other Information Pt has consumed 85% of meals since last assessment. She reports much improved appetite . Percent of energy/protein needs met: 94% energy 100% pro #1 Nutrition Diagnosis Inadequate oral intake As Evidenced by Signs and Symptoms PO intakes meeting >75% energy and pro needs Diagnosis Progress(for reassessment Resolved documentation) Is patient on ventilator? No Is Patient Ambulatory and/or Out of Bed Yes REE-([place]-St. Jeor-ambulatory/OOB) [ 1924.325 NUTR.MSJOOB] Kcal/Kg value to use for calculation 14 Approximate Energy Requirements Using 1459 kcal/Kg Calculation Used for Recommendations Kcal/kg Additional Notes Pro needs 0.6-0.8g/kg adjBW: 46-62g/day Fluid needs 1ml/kcal Nutrition Intervention Revisit per MD consult or patient Sign Off request:
[2019-01-06] MEDS: TYLENOL #3 PO PRN (08:21)
[2019-01-06] MEDS ORDERED: DULCOLAX PR ONE (08:30)
[2019-01-06] MEDS ORDERED: MIRALAX 3350 PO ONE (08:30)
[2019-01-06] MEDS: NON-FORMULARY (Febuxostat [Uloric] 40 MG) PO SCH (10:55)
[2019-01-06] MEDS: DELTASONE PO SCH (10:55)
[2019-01-06] MEDS: SODIUM CHLORIDE FLUSH SYRINGE 10 ML IV SCH (10:55)
[2019-01-06] MEDS: THALITONE PO SCH (10:55)
[2019-01-06] MEDS: APRESOLINE PO SCH (10:56)
[2019-01-06] MEDS: ROCEPHIN/NS 1 GM/50 ML 1 GM/50 ML BAG IV SCH (11:00)
--- NOTE | 2019-01-06 11:09 | Discharge Summary ---
Providers - Providers Date of Admission: 01/01/19 13:23 Date of discharge: 01/06/19 Attending physician: TULIO ZEE MD 01/01/19 10:42 Consult to Case Management [CONS] Urgent Services Needed at Discharge: Other Notified:: yes Additional Physician Instructions: requestion admission due to ADLs 01/01/19 18:59 Physical Therapy Evaluation and Treat [CONS] Routine Comment: Reason For Exam: weakness/debility 01/01/19 19:00 Consult to Mental Health [CONS] Routine Reason For Exam: Depression Place consult to:: phychiatry Notified:: YES Phone number called:: [phone] Was contact made?: Yes If yes, spoke with:: anatoly Time called:: 09:03 Comment:: calvin 01/02/19 09:01 Consult to Physician [CONS] Routine Comment: called office/ calvin Consulting Provider: JAYCOB LEBRON Physician Instructions: Reason For Exam: left knee pain [facility] Reason for admission: left knne joint osteoarthritis, Multiple DJD Condition: Stable Pertinent studies: joint x-ray Hospital course: 78 Y Female with MO, HTN, GERD, Gout, OA presents to ED for evaluation. Pt states that she has experienced generalized weakness over the past 1 week, as well as pain in her left knee, lower back with worsening symptoms over the past 2 days. Pt states that she is unable to bear weight on her left knee as well as decreased oral intake. Pt states that the pain is 8/10, constant, worsened with weight bearing. EMS notified, and upon arrival the patient was found to be in distress. The patient has been mostly nonambulatory in the last few weeks. Sometime in August received injections to her back with improvement in her symptoms and was active but subsequently in the last few weeks this has worsened with a flareup. There is a feeling that there is lack of information lasted how recurrent this condition could be. She has not been able to follow with international sourcing manager as described and prescribed during the last admission. Pt sister also placed a request Case Management intervention for LYNNE/SNF placement. She also that the patient is not cooperative with any active at home in general. She is not currently getting physical therapy or occupational therapy. She has previously been in rehabilitation. Patient was seen and evaluated and admitted to the floor. Orthopedics was consulted and gave her steroid injection in her left knee with some improvement. Patient has multiple joint arthritis. Evaluated by PT and recommended to SNF. Patient was discharged to the SNF. patient was stable at the time of discharge. 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 The patient is obese. Vital signs as documented. Head exam is unremarkable. No scleral icterus . Neck is without jugular venous distension, thyromegaly, or carotid bruits. Lungs are clear to auscultation. Cardiac exam reveals regular rate and Rhythm. Abdominal exam reveals normal bowel sounds. Extremities are left knee swelling and tenderness. ENTRY LEVEL PROGRAMMER: Alert and oriented 3. No focal weakness. - Constitutional Vitals: Temp Pulse Resp BP Pulse Ox 98.2 F 67 18 152/93 98 01/06/19 08:33 01/06/19 08:33 01/06/19 08:57 01/06/19 08:33 01/06/19 08:33 Plan Activity: no restrictions Weight Bearing Status: Full Weight Bearing Diet: regular Follow up with: PHIL MARX MD [Primary Care Provider] - 3-5 Days Prescriptions: Tylenol /Codeine # 3 tab 300 mg PO BID PRN #20 PRN Reason: Pain, Moderate (4-6)
[2019-01-06] MEDS: TENORMIN PO SCH (11:22)
[2019-01-06 20:45] VITALS: BP 124/68
== END 2019-01-06 17:30 | DRG 683 ==
LOC: ED 08:03 → 2B-ACE 13:23
PROVIDERS: ADMIT Internal Medicine; ATTEND Internal Medicine
DX: N17.9 Acute kidney failure, unspecified (principal); N39.0 Urinary tract infection, site not specified; R65.10 Systemic inflammatory response syndrome (SIRS) of non-infectious origin without acute organ dysfunction; Z68.42 Body mass index [BMI] 45.0-49.9, adult; F03.90 Unspecified dementia, unspecified severity, without behavioral disturbance, psychotic disturbance, mood disturbance, and anxiety; I12.9 Hypertensive chronic kidney disease with stage 1 through stage 4 chronic kidney disease, or unspecified chronic kidney disease; N18.3 Chronic kidney disease, stage 3 (moderate); M17.12 Unilateral primary osteoarthritis, left knee; F32.9 Major depressive disorder, single episode, unspecified; M10.9 Gout, unspecified; K21.9 Gastro-esophageal reflux disease without esophagitis; Z74.01 Bed confinement status; Z83.3 Family history of diabetes mellitus; Z82.49 Family history of ischemic heart disease and other diseases of the circulatory system; Z88.6 Allergy status to analgesic agent; Z88.8 Allergy status to other drugs, medicaments and biological substances; Z90.49 Acquired absence of other specified parts of digestive tract; Z90.89 Acquired absence of other organs
CPT/HCPCS: 36415; 70450; 80048; 80053; 81001; 82550; 82553; 84550; 85025; 87116; 96372; G0378; J0696; J1040; J1100; J2270; J7512; Q0162

== ENCOUNTER 2019-03-28 11:22 | Emergency (ER) | payer MEDICARE ==
[2019-03-28] MEDS ORDERED: HYDROcodone/ACETAMINOPHEN 5-325 MG TAB PO ONE (12:26)
[2019-03-28] MEDS ORDERED: dexAMETHasone 4 MG/ML VIAL IM ONE (12:26)
[2019-03-28] MEDS ORDERED: ACETAMINOPHEN 500 MG TAB PO ONE (12:28)
--- NOTE | 2019-03-28 12:28 | Emergency Department Report ---
ED General Adult HPI - General Chief complaint: Extremity Injury, Lower Stated complaint: KNEE PAIN Time Seen by Provider: 03/28/19 12:25 Source: patient Mode of arrival: Stretcher Limitations: No Limitations - History of Present Illness Initial comments: Mrs. Muhammad is a 78-year-old -[place] female who comes to the ER complaining of acute on chronic left knee pain. She was seen here recently for the same. In fact, she was admitted because she cannot ambulate at that time. Patient has a history of arthritis. And per her family she does not take her home medications. Patient denies any other complaints. She has no chest pain no shortness of breath. She has not fallen. She is ambulatory with a walker at home. This with her sister Severity scale (0 -10): 10 - Related Data Home Medications Medication Instructions Recorded Confirmed Last Taken Atenolol/Chlorthalidone [Tenoretic 1 tab PO QDAY 07/06/18 01/02/19 Unknown 50-25] Febuxostat [Uloric] 40 mg PO DAILY 07/06/18 01/02/19 01/01/19 10:00 Previous Rx's Medication Instructions Recorded Last Taken Type Famotidine [Pepcid] 40 mg PO QHS #30 09/13/18 Unknown Rx Hydralazine HCl 50 mg PO BID #60 09/13/18 01/01/19 10:00 Rx Acetaminophen [Acetaminophen 8 650 mg PO Q8H PRN #25 tablet.er 03/28/19 Unknown Rx Hour] Potassium Chloride [K-Dur] 20 meq PO BID #4 tab 03/28/19 Unknown Rx predniSONE [Deltasone] 20 mg PO DAILY #5 tablet 03/28/19 Unknown Rx Allergies Allergy/AdvReac Type Severity Reaction Status Date / Time turkey Allergy Intermediate Hives Verified 07/07/18 19:18 tramadol AdvReac Intermediate Dizziness Verified 07/10/18 03:08 naproxen AdvReac Mild Dizziness Verified 07/07/18 19:19 ED Review of Systems ROS: Stated complaint: KNEE PAIN Other details as noted in HPI Comment: All other systems reviewed and negative ED Past Medical Hx - Past Medical History Previous Medical History?: Yes Hx Hypertension: Yes Hx Arthritis: Yes Hx HIV: No Additional medical history: '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 Left knee swelling - Surgical History Past Surgical History?: Yes Hx Cholecystectomy: Yes Additional Surgical History: hysterectomy - Family History Family history: no significant - Social History Smoking Status: Never Smoker Substance Use Type: None - Medications Home Medications: Home Medications Medication Instructions Recorded Confirmed Last Taken Type Atenolol/Chlorthalidone [Tenoretic 1 tab PO QDAY 07/06/18 01/02/19 Unknown History 50-25] Febuxostat [Uloric] 40 mg PO DAILY 07/06/18 01/02/19 01/01/19 10:00 History Famotidine [Pepcid] 40 mg PO QHS #30 09/13/18 01/02/19 Unknown Rx Hydralazine HCl 50 mg PO BID #60 09/13/18 01/02/19 01/01/19 10:00 Rx Acetaminophen [Acetaminophen 8 650 mg PO Q8H PRN #25 tablet.er 03/28/19 Unknown Rx Hour] Potassium Chloride [K-Dur] 20 meq PO BID #4 tab 03/28/19 Unknown Rx predniSONE [Deltasone] 20 mg PO DAILY #5 tablet 03/28/19 Unknown Rx ED Physical Exam - General Limitations: No Limitations General appearance: alert, in no apparent distress - Head Head exam: Present: atraumatic, normocephalic - Eye Eye exam: Present: normal appearance - ENT ENT exam: Present: mucous membranes moist - Neck Neck exam: Present: normal inspection - Respiratory Respiratory exam: Present: normal lung sounds bilaterally. Absent: respiratory distress - Cardiovascular Cardiovascular Exam: Present: regular rate, normal rhythm. Absent: systolic murmur, diastolic murmur, rubs, gallop - GI/Abdominal GI/Abdominal exam: Present: soft, normal bowel sounds - Extremities Exam Extremities exam: Present: normal inspection - Expanded Lower Extremity Exam Left Upper Leg exam: Present: normal inspection Knee exam: Present: normal inspection Lower Leg exam: Present: normal inspection - Back Exam Back exam: Present: normal inspection - Neurological Exam Neurological exam: Present: alert, oriented X3 - Psychiatric Psychiatric exam: Present: normal affect, normal mood - Skin Skin exam: Present: warm, dry, intact, normal color. Absent: rash ED Course Vital Signs 03/28/19 03/28/19 03/28/19 11:32 11:40 11:46 Temperature 98.2 F Pulse Rate 75 Respiratory 20 Rate Blood Pressure 134/53 120/52 Blood Pressure 134/53 [Left] O2 Sat by Pulse 100 Oximetry 03/28/19 03/28/19 03/28/19 12:00 12:16 12:31 Temperature Pulse Rate Respiratory Rate Blood Pressure 121/62 126/62 126/61 Blood Pressure [Left] O2 Sat by Pulse Oximetry 03/28/19 03/28/19 03/28/19 12:46 13:43 13:44 Temperature Pulse Rate Respiratory 18 18 Rate Blood Pressure 135/61 Blood Pressure [Left] O2 Sat by Pulse Oximetry 03/28/19 03/28/19 14:43 14:44 Temperature Pulse Rate Respiratory 18 18 Rate Blood Pressure Blood Pressure [Left] O2 Sat by Pulse Oximetry ED Medical Decision Making - Lab Data Result diagrams: 03/28/19 13:41 03/28/19 13:41 - Medical Decision Making Vital Signs 03/28/19 03/28/19 03/28/19 11:40 13:43 13:44 Temperature 98.2 F Pulse Rate 75 Respiratory 20 18 18 Rate Blood Pressure 134/53 [Left] O2 Sat by Pulse 100 Oximetry Lab Results 03/28/19 03/28/19 03/28/19 Range/Units 13:41 13:41 13:41 WBC 10.2 (4.5-11.0) K/mm3 RBC 4.55 (3.65-5.03) M/mm3 Hgb 12.2 (10.1-14.3) gm/dl Hct 38.9 (30.3-42.9) % MCV 86 (79-97) fl MCH 27 L (28-32) pg MCHC 32 (30-34) % RDW 16.1 H (13.2-15.2) % Plt Count 412 (140-440) K/mm3 Lymph % (Auto) 16.8 (13.4-35.0) % [place] % (Auto) 13.9 H (0.0-7.3) % Eos % (Auto) 2.3 (0.0-4.3) % Baso % (Auto) 1.2 (0.0-1.8) % Lymph # 1.7 (1.2-5.4) K/mm3 [place] # 1.4 H (0.0-0.8) K/mm3 Eos # 0.2 (0.0-0.4) K/mm3 Baso # 0.1 (0.0-0.1) K/mm3 Seg Neutrophils % 65.8 (40.0-70.0) % Seg Neutrophils # 6.7 (1.8-7.7) K/mm3 PT 14.2 (12.2-14.9) Sec. INR 1.11 (0.87-1.13) APTT 31.3 (24.2-36.6) Sec. Sodium 143 (137-145) mmol/L Potassium 3.5 L (3.6-5.0) mmol/L Chloride 103.7 (98-107) mmol/L Carbon Dioxide 26 (22-30) mmol/L Anion Gap 17 mmol/L BUN 30 H (7-17) mg/dL Creatinine 1.4 H (0.7-1.2) mg/dL Estimated GFR 44 ml/min BUN/Creatinine Ratio 21 % Glucose 109 H (65-100) mg/dL Uric Acid 5.3 (3.5-7.6) mg/dL Calcium 10.3 H (8.4-10.2) mg/dL Total Bilirubin 0.40 (0.1-1.2) mg/dL AST 16 (5-40) units/L ALT 11 (7-56) units/L Alkaline Phosphatase 82 (35-129) units/L Total Protein 8.0 (6.3-8.2) g/dL Albumin 3.7 L (3.9-5) g/dL Albumin/Globulin Ratio 0.9 % no fall/trauma neurovasc intact us noted labs noted medicated for pain pt reported dec in pain pt able to ambulate with RN assist- she does not have her usual walker Sister has come to ER to get pt. Dc home with dc plan of care and follow up with pcp for her a/c pain. - Differential Diagnosis a/c pain Critical care attestation.: If time is entered above; I have spent that time in minutes in the direct care of this critically ill patient, excluding procedure time. ED Disposition Clinical Impression: DJD (degenerative joint disease), Hypokalemia, Chronic pain Disposition: DC-01 TO HOME OR SELFCARE Is pt being admited?: No Does the pt Need Aspirin: No Condition: Stable Instructions: Osteoarthritis (ED) Additional Instructions: follow up with pcp in the AM he will be able to get you to the other MD you were telling me about meds as ordered today diet and activity as tolerated ALL LABS NORMAL TODAY Prescriptions: Acetaminophen [Acetaminophen 8 Hour] 650 mg PO Q8H PRN #25 tablet.er PRN Reason: Pain , Severe (7-10) predniSONE [Deltasone] 20 mg PO DAILY #5 tablet Potassium Chloride [K-Dur] 20 meq PO BID #4 tab Referrals: PRIMARY CAREMD [Primary Care Provider] - 3-5 Days JAYCOB LEBRON MD [Staff Physician] - 3-5 Days [facility] [Outside] - 3-5 Days Time of Disposition: 15:22
--- NOTE | 2019-03-28 13:26 | Vascular Lab Report ---
DUPLEX DOPPLER LEFT LOWER EXTREMITY VEINS INDICATION: Left leg pain FINDINGS: There is no thrombus within the deep veins of the left lower extremity from the common femoral to the calf veins. There is normal compression and augmentation on spectral analysis. IMPRESSION: No sonographic evidence for DVT in the left lower extremity. Signer Name: Kem Pereyra MD Signed: 03/28/2019 1:21 PM Workstation Name: [id number]
[2019-03-28 14:14] LABS: Basophils # (Auto) 0.1 K/mm3 (0.0-0.1); Basophils % (Auto) 1.2 % (0.0-1.8); Eosinophils # (Auto) 0.2 K/mm3 (0.0-0.4); Eosinophils % (Auto) 2.3 % (0.0-4.3); Hematocrit 38.9 % (30.3-42.9); Hemoglobin 12.2 gm/dl (10.1-14.3); Lymphocytes # (Auto) 1.7 K/mm3 (1.2-5.4); Lymphocytes % (Auto) 16.8 % (13.4-35.0); Mean Corpuscular HGB Conc 32 % (30-34); Mean Corpuscular Volume 86 fl (79-97); Monocytes # (Auto) 1.4 K/mm3 (0.0-0.8); Monocytes % (Auto) 13.9 % (0.0-7.3); Platelet Count 412 K/mm3 (140-440); Red Blood Count 4.55 M/mm3 (3.65-5.03); Red Cell Distribution Width 16.1 % (13.2-15.2)
[2019-03-28 14:25] LABS: INR 1.11 (0.87-1.13)
[2019-03-28 14:26] LABS: Partial Thromboplastin Time 31.3 Sec. (24.2-36.6)
[2019-03-28 14:52] LABS: Albumin 3.7 g/dL (3.9-5); Calcium 10.3 mg/dL (8.4-10.2); Uric Acid 5.3 mg/dL (3.5-7.6)
[2019-03-28 17:07] VITALS: BP 162/84
== END 2019-03-28 16:30 | disposition home or self-care (01) ==
LOC: ED 11:22
DX: M17.12 Unilateral primary osteoarthritis, left knee (principal); I10 Essential (primary) hypertension; G89.29 Other chronic pain; E87.6 Hypokalemia; Z91.018 Allergy to other foods; Z88.5 Allergy status to narcotic agent; Z79.899 Other long term (current) drug therapy; Z90.49 Acquired absence of other specified parts of digestive tract; Z90.710 Acquired absence of both cervix and uterus
CPT/HCPCS: 36415; 80053; 84550; 85025; 85610; 85730; 93971; 96372; 99284; J1100